=== PATIENT | male | born 1955 | race Caucasian/White ===

== ENCOUNTER → 2017-07-19 | Outpatient (CLI) | payer OTHER ==
[2017-07-19 11:07] LABS: Blood Urea Nitrogen 13 mg/dL (9-20); Non-African American GFR(MDRD) >60 (>60 ml/min/1.73 sqM)
--- NOTE | 2017-07-19 12:52 | CT ---
EXAMINATION TYPE: CT ChestAbdPelvis w con DATE OF EXAM: 07/19/2017 COMPARISON: CT chest October 19, 2015. Whole body bone scan July 13, 2015. HISTORY: Prostate cancer with prostatectomy per patient. CT DLP: 2340 mGycm. Automated Exposure Control for Dose Reduction was Utilized. CONTRAST: CT scan of the thorax, abdomen and pelvis is performed with oral and with IV Contrast, patient inject ed with 100 mL of Omnipaque 300. FINDINGS: LUNGS: The lungs are grossly clear, there is no concerning parenchymal mass or nodule identified. T here is no pleural effusion or pneumothorax seen. The tracheobronchial tree is patent. MEDIASTINUM: There are no greater than 1 cm hilar or mediastinal lymph nodes. No cardiomegaly or pe ricardial effusion is seen. Coronary artery calcification is redemonstrated which is noted marker fo r coronary artery disease. OTHER: Tiny degree of bilateral gynecomastia is redemonstrated. LIVER/GB: Liver remains diffusely low dense consistent with diffuse fatty infiltration. There are few (3-4) scattered subcentimeter hypodense lesions throughout the liver that are too small to further c haracterize but likely benign. Gallbladder is contracted. PANCREAS: No significant abnormality is seen. SPLEEN: There is stable 1.1 cm splenule in splenic hilum on axial image 68. ADRENALS: No significant abnormality is seen. KIDNEYS: There are a few simple appearing cysts scattered throughout both kidneys. Some cortical thin zakia is present bilaterally. There is symmetric cortical medullary uptake and excretion from both kid neys without evidence of hydronephrosis bilaterally. There are 2 slightly prominent collecting system calculi lower pole level left kidney measuring up to 10 mm on long axis. BOWEL: No significant abnormality is seen. GENITAL ORGANS: Prostate gland is surgically absent. Numerous clips in the pelvis are seen at this le dom. No suspicious adenopathy is noted. LYMPH NODES: There are slightly prominent but subcentimeter benign-appearing retroperitoneal lymph no roosevelt including lymph nodes along course of the left iliac chain vessels. Largest measured lymph node o r confluent lobulated lymph node measures 2.4 x 1.1 cm aortocaval region on axial image 83. OSSEOUS STRUCTURES: There is fairly moderate multilevel spurring in the thoracolumbar spine. No suspi cious focal lytic or sclerotic lesions however are evident. OTHER: There is ectatic course to distal abdominal aorta. There is moderate calcified plaque in dista l aorta extending into pelvic branch vessels. IMPRESSION: Nonspecific retroperitoneal lymph nodes as detailed above. Comparison with old outside CT abdomen or pelvis or PET/CT would be beneficial to assess otherwise no convincing evidence of neopla stic recurrence.
--- NOTE | 2017-07-19 14:33 | NM ---
EXAMINATION TYPE: NM bone scan whole body DATE OF EXAM: 07/19/2017 COMPARISON: 07/13/2015 HISTORY: Prostate cancer Delayed whole-body scanning was performed following the injection of 27.8 mCi Tc 99m MDP. Images wer e acquired 3 hours post injection. FINDINGS: Spot images were obtained over the abdomen lumbar spine. Suspicious uptake is not identified. Whole body imaging is performed. Some minimal degenerative changes present at the left knee, the bila teral shoulders and the bilateral feet. Suspicious uptake to suggest metastatic disease is not identi fied. There may be some degenerative type change at the costovertebral junctions of the 11th and 12th left ribs posteriorly. IMPRESSION: 1. Few scattered areas of mild increased uptake suggestive for degenerative-type changes. 2. Suspicious focal uptake to suggest metastatic disease is not identified. 3. Uptake distribution appears stable from 07/13/2015
== END ==
LOC: RADNMMAIN 10:15
PROVIDERS: ATTEND Internal Medicine Hematology & Oncology
DX: C61 Malignant neoplasm of prostate (principal); R59.0 Localized enlarged lymph nodes
CPT/HCPCS: 82565; 84520; 71260; 74177; 36415; 78306; A9503; Q9967

== ENCOUNTER 2017-11-15 13:41 | Day surgery (SDC) | payer OTHER ==
[2017-11-07 09:53] VITALS: BMI 34.3
[~2017-11-15 13:41] MED LIST: HYDROmorphone 0.5 MG/0.5 ML SYRINGE IVP PRN; LACTATED RINGERS 1,000 ML IV SCH; ONDANSETRON 4 MG/2 ML VIAL IVP PRN; ceFAZolin 3 GM in SODIUM CHLORIDE 0.9% 100 ML IVPB ONE
[2017-11-15] MEDS ORDERED: LIDOCAINE 1% 20 ML VIAL (10MG/ML) FOR IV START INTRADERMA ONE (14:12)
[2017-11-15 14:13] LABS: Glucose,Whole Blood 162 mg/dL (75-99)
[2017-11-15 14:24] LABS: Prothrombin Time 10.2 sec (9.0-12.0)
[2017-11-15] MEDS ORDERED: PROPOFOL 10 MG/ML 20 ML VIAL IV ONE (15:13)
[2017-11-15] MEDS ORDERED: LIDOCAINE 1% INJ 10MG/ML (20 ML MDV) ONE (15:13)
[2017-11-15] MEDS ORDERED: HYDROmorphone (PF) 1 MG/ML ONE (15:13)
[2017-11-15] MEDS ORDERED: MIDAZOLAM 2 MG/2 ML VIAL ONE (15:13)
[2017-11-15] MEDS ORDERED: fentaNYL (PF) 50 MCG/ML 2 ML AMP ONE (15:13)
[2017-11-15] MEDS ORDERED: SUCCINYLCHOLINE CHLORIDE VIAL 200 MG/10 ML VIAL IV ONE (15:13)
[2017-11-15] MEDS ORDERED: LACTATED RINGERS 1,000 ML IV ONE (15:17)
[2017-11-15] MEDS ORDERED: ceFAZolin 1,000 MG in SODIUM CHLORIDE 0.9% 1,000 ML IRRIGATION ONE (15:40)
[2017-11-15 16:19] VITALS: TEMP 98
[2017-11-15 16:25] LABS: Glucose,Whole Blood 131 mg/dL (75-99)
[2017-11-15 16:40] VITALS: RESP 18
--- NOTE | 2017-11-15 17:32 | P.OP ---
Date of Procedure: 11/15/17 Preoperative Diagnosis: 1. Diabetes with peripheral neuropathy and history of prior neuropathic forefoot ulceration 2. Rigid left second claw toe deformity with open draining neuropathic ulcer and findings on MRI suggestive of deep infection 3. Flexible left third, fourth, and fifth claw toe deformities Postoperative Diagnosis: Same Procedure(s) Performed: 1. Left second toe amputation 2. Percutaneous flexor tenotomy left third, fourth, and fifth toes Anesthesia: GETA Surgeon: Alfred Deal Estimated Blood Loss (ml): 5 IV fluids (ml): 500 Pathology: none sent Condition: stable Disposition: PACU Indications for Procedure: The patient is a 62-year-old male with a medical history significant for type 2 diabetes and peripheral neuropathy as well as a prior history of smoking. The patient has had problems with his left foot over the past several years. He previously had surgery on the left big toe by a local disability manager. Following this he developed fusiform thickening and occasional open wounds and a hemorrhagic blister. The patient also has developed an open, draining common neuropathic ulcer over the plantar aspect of the tip of the second toe. He also had flexible claw toe deformities of the third, fourth and fifth toe. The patient came to me several months ago to discuss treatment. He had an MRI which showed deep infection of the second toe. We discussed performing amputation versus wound care and shoe modification. Initially the patient wanted to treat nonoperatively due to problems with money and work, but eventually due to the recurrent and ongoing nature of his problems requested surgery. My recommendation was to perform a second toe amputation and percutaneous flexor tenotomies of the third, fourth, and fifth toes. The patient did not want to have any procedure done on the big toe despite having recurrent hemorrhagic blistering. We discussed potential risks and complication of surgery including but not limited to risk of infection, risk of wound necrosis, risk of damage to local blood vessels or nerves, risk of recurrent ulceration, risk of need for more proximal amputation, risk of chronic pain, risk of chronic swelling, risk of the satisfaction of surgery, risk of postoperative medical complications and possibly loss of life or limb. The patient understands the site and rate of of complication due to his multiple medical problems. He provided his verbal and written consent to go forward with surgery. Description of Procedure: The patient was identified in preoperative holding and the correct left foot was marked with my initials. I reviewed the consent form with the patient and his daughter. All their questions were answered. The patient was then brought back to the operating room by anesthesia. A general anesthetic was administered. He was positioned on the OR table and all bony prominences were well-padded. A tourniquet was applied to the proximal aspect of the left leg. The patient's left leg was then prepped and draped in standard sterile fashion. Prior to starting surgery timeout was performed identifying the correct patient, operative extremity, and procedure. The patient's leg was then elevated for 2 minutes and the tourniquet was inflated to 250 mmHg. Began by performing a second toe amputation. The skin marking was made over the base of the second toe with equal dorsal and plantar flaps. Skin incision was made with a scalpel and dissection was carried down carefully to the proximal pharynx. The long flexor and extensor tendons were cut and allowed to retract proximally into the wound. The neurovascular bundles identified, transected, and the vessels were controlled with electrocautery. The base of the proximal phalanx was dissected and then amputated from the MTP joint. The wound was then copiously irrigated. The tourniquet was let down and bleeders were controlled with cautery. The deep tissue was reapproximated using 2-0 Vicryl. The skin was closed using 3-0 nylon horizontal mattress stitches. Attention was then turned to the third, fourth, and fifth toe. Using a sterile 15 blade percutaneous flexor tenotomies were performed on all 3 toes. I was able to straighten the toe. The knife was then used to release contractures at the PIP joint. The wounds were copiously irrigated. Single interrupted 3-0 nylon stitches were placed in all the incisions. I verified that all instrument , sponge, and sharp counts were correct. A sterile dressing consisting of Betadine soaked Adaptic, 4 x 4's, and web roll was applied. The patient had an Quincy wrap applied over his foot. Gave taken down and he was transferred from the OR table to the [facility] and brought to PACU without procedure well.
[2017-11-15 17:40] VITALS: BP 142/92; PULSE 85
== END 2017-11-15 18:06 | disposition home or self-care (01) ==
LOC: OR 13:41
PROVIDERS: ATTEND Orthopaedic Surgery
DX: E11.42 Type 2 diabetes mellitus with diabetic polyneuropathy (principal); E11.621 Type 2 diabetes mellitus with foot ulcer; L97.528 Non-pressure chronic ulcer of other part of left foot with other specified severity; Z79.4 Long term (current) use of insulin; M20.5X2 Other deformities of toe(s) (acquired), left foot; M86.9 Osteomyelitis, unspecified; I48.0 Paroxysmal atrial fibrillation; Z79.01 Long term (current) use of anticoagulants; E78.5 Hyperlipidemia, unspecified; I71.2 Thoracic aortic aneurysm, without rupture; I51.7 Cardiomegaly; I25.10 Atherosclerotic heart disease of native coronary artery without angina pectoris; I10 Essential (primary) hypertension; Z86.73 Personal history of transient ischemic attack (TIA), and cerebral infarction without residual deficits; F17.210 Nicotine dependence, cigarettes, uncomplicated; H91.90 Unspecified hearing loss, unspecified ear; Z85.46 Personal history of malignant neoplasm of prostate; I51.9 Heart disease, unspecified; Z79.891 Long term (current) use of opiate analgesic; Z79.899 Other long term (current) drug therapy
CPT/HCPCS: 85610; 28820; 28011; J2250; J0330; J0690 ×2; J2405; J2001; J3010; J1170; J2704; 88305; 88311

== ENCOUNTER → 2017-12-02 | Outpatient (CLI) | payer OTHER ==
[2017-12-02 13:16] LABS: Basophils % (A) 1 %; Eosinophils # (A) 0.1 k/uL (0-0.7); Eosinophils % (A) 2 %; HCT 48.1 % (39.0-53.0); HGB 15.3 gm/dL (13.0-17.5); Lymphocytes # (A) 1.7 k/uL (1.0-4.8); Lymphocytes % (A) 23 %; MCH 28.9 pg (25.0-35.0); MCHC 31.7 g/dL (31.0-37.0); MCV 91.3 fL (80.0-100.0); Mean Platelet Volume 7.5; Monocytes # (A) 0.6 k/uL (0-1.0); Monocytes % (A) 8 %; Neutrophils # (A) 4.6 k/uL (1.3-7.7); Neutrophils % (A) 64 %; Platelet Count 248 k/uL (150-450); RBC 5.27 m/uL (4.30-5.90); WBC 7.3 k/uL (3.8-10.6)
[2017-12-02 13:27] LABS: Anion Gap 11 mmol/L; Blood Urea Nitrogen 21 mg/dL (9-20); Calcium 9.6 mg/dL (8.4-10.2); Carbon Dioxide 28 mmol/L (22-30); Chloride 99 mmol/L (98-107); Glucose 235 mg/dL (74-99); Magnesium 1.9 mg/dL (1.6-2.3); Potassium 4.6 mmol/L (3.5-5.1); Sodium 138 mmol/L (137-145)
[2017-12-02 13:44] LABS: T4, Free (Free Thyroxine) 0.82 ng/dL (0.78-2.19)
[2017-12-02 21:26] LABS: Hemoglobin A1C 9.1 % (4.0-6.0)
== END | disposition home or self-care (01) ==
LOC: LABWHC1 12:12
PROVIDERS: ATTEND Internal Medicine
DX: E55.9 Vitamin D deficiency, unspecified (principal); E11.9 Type 2 diabetes mellitus without complications; I10 Essential (primary) hypertension
CPT/HCPCS: 36415; 80048; 83036; 83735; 84439; 84443; 85025

== ENCOUNTER → 2019-02-05 | Outpatient (CLI) | payer BC ==
--- NOTE | 2019-02-06 07:08 | US ---
LOWER EXTREMITY VENOUS INSUFFICIENCY SIDE PERFORMED: Bilateral 1) Color flow is present and patency is documented in the following vessels. No DVT or SVT is noted . EIV Common Femoral Vein Deep Femoral Vein Femoral Vein Popliteal Vein Proximal Calf Veins-not seen bilateral due to let swelling Greater Saph Vein Upper Small Saph Vein Patient has bilateral leg swelling, slow flow, technically difficult study. 2) There is venous reflux noted at the following venous levels: Right: none Left: GSV, DFV not seen Venous reflux noted at EIV, CFV, FV upper, and Popliteal Vein lower. IMPRESSION: No ultrasound evidence for acute deep or superficial venous thrombosis bilateral lower ex tremities. Left-sided venous reflux noted as detailed above.
--- NOTE | 2019-02-11 09:22 | P.ARTDOP ---
Arterial Doppler LOWER EXTREMITY ARTERIAL DOPPLER: DATE OF SERVICE: 02/05/2019 Reason for study: Right leg pain. Doppler waveforms: Multiphasic bilaterally throughout. Pulse volume recording: Normal configuration. Pressure gradients: None. Ankle-brachial indices: Greater than 1 on the right and 0.87 on the left Toe pressures: Not recorded Impression: Normal study on the right. Possible mild right SFA disease.
== END | disposition home or self-care (01) ==
LOC: RADUSWWP 13:32
PROVIDERS: ATTEND Podiatrist
DX: I87.2 Venous insufficiency (chronic) (peripheral) (principal)
CPT/HCPCS: 93923; 93970

== ENCOUNTER → 2019-02-09 | Outpatient (CLI) | payer BC ==
--- NOTE | 2019-02-10 12:48 | NM ---
EXAMINATION TYPE: NM WBC limited DATE OF EXAM: 02/10/2019 COMPARISON: Nuclear medicine bone scan dated 07/19/2017, right toe radiographs dated 01/30/2019 and veno us ultrasound dated 02/05/2018. HISTORY: Concern for osteomyelitis TECHNIQUE: Following administration of 15.2 mCi Tc99m Ceretec. Images obtained 4 hour(s) and 24 jessica r(s) post injection. FINDINGS: Normal physiological tracer activity is noted in the liver and spleen and in the bone marrow of the a xial and appendicular skeleton. There is focal accumulation of radiotracer within the right second di stal phalanx on delayed images. This is compatible with osteomyelitis. No additional abnormal foci of radiotracer uptake are seen. IMPRESSION: Findings confirmatory of osteomyelitis within the second distal phalanx of the right foot.
== END | disposition home or self-care (01) ==
LOC: RADNMMAIN 06:58
PROVIDERS: ATTEND Podiatrist
DX: M86.8X7 Other osteomyelitis, ankle and foot (principal)
CPT/HCPCS: 78805; A9569

== ENCOUNTER → 2019-04-02 | Outpatient (CLI) | payer BC ==
--- NOTE | 2019-04-03 07:30 | XR ---
Right foot HISTORY: Diabetes mellitus with foot ulcer 3 views of the right foot on 4 images Correlation to right toes 01/30/2019 Soft tissue swelling at the second digit distally is again noted. There is been interval bone erosion . Soft tissue calcifications are present. Digits are flexed. Vascular calcifications noted. No eviden t periostitis. There is a plantar calcaneus spur. IMPRESSION: Findings compatible with osteomyelitis.
== END | disposition home or self-care (01) ==
LOC: RADXRMAIN 16:15
PROVIDERS: ATTEND Podiatrist
DX: M86.8X7 Other osteomyelitis, ankle and foot (principal); E08.621 Diabetes mellitus due to underlying condition with foot ulcer

== ENCOUNTER 2019-05-15 10:09 | Inpatient (IN) | payer BC ==
--- NOTE | 2019-05-15 10:51 | ED ---
General Adult HPI <Dennis Alvarado - Last Filed: 05/15/19 12:18> - General Source: patient, RN notes reviewed, old records reviewed Mode of arrival: wheelchair Limitations: no limitations <DailyKaren - Last Filed: 05/15/19 12:35> - General Chief complaint: Skin/Abscess/Foreign Body Stated complaint: toe infection Time Seen by Provider: 05/15/19 10:19 - History of Present Illness Initial comments: Patient is a 63-year-old male, known history of diabetes, complaints of right second toe infection. He reports he's been seeing Dr. Medina since December for concern for infection over the right toe. Patient states over the past 24 mL had increased redness and swelling over the second toe. He saw Dr. Medina today and was told that he needed to come in for further evaluation. Patient states that he has been on oral Keflex for the past few weeks. Patient states that he has history of peripheral neuropathy. Patient states that Dr. Medina inserted appropriately did obtain a wound culture today. Patient states that he's had his left second toe removed for a similar diabetic wound. (Karen Ambrosio) - Related Data Home Medications Medication Instructions Recorded Confirmed Gabapentin [Neurontin] 300 mg PO TID 11/07/17 05/15/19 Losartan Potassium [Cozaar] 100 mg PO DAILY 11/07/17 05/15/19 Metoprolol Tartrate [Lopressor] 50 mg PO BID 11/07/17 05/15/19 Warfarin [Coumadin] 2.5 mg PO SUWETHSA 11/07/17 05/15/19 amLODIPine [Norvasc] 10 mg PO HS 11/07/17 05/15/19 hydrALAZINE HCL [Apresoline] 50 mg PO TID 11/07/17 05/15/19 Atorvastatin [Lipitor] 20 mg PO HS 01/16/19 05/15/19 Citalopram Hydrobromide [CeleXA] 20 mg PO DAILY 01/16/19 05/15/19 Furosemide [Lasix] 20 mg PO DAILY@1500 01/16/19 05/15/19 Furosemide [Lasix] 40 mg PO DAILY 01/16/19 05/15/19 Ibuprofen [Motrin] 600 mg PO PC-TID 01/16/19 05/15/19 oxyCODONE HCL [oxyCODONE HCL (IR)] 15 mg PO Q6H 01/16/19 05/15/19 Cholecalciferol [Vitamin D3 (25 5,000 unit PO DAILY 05/15/19 05/15/19 Mcg = 1000 Iu)] INSULIN ASPART (NovoLOG) [NovoLOG 30 unit SQ AC-BID 05/15/19 05/15/19 (formulary)] Insulin Glargine,Hum.rec.anlog 50 mg PO HS 05/15/19 05/15/19 [Basaglar Kwikpen U-100] Pantoprazole [Protonix] 40 mg PO DAILY 05/15/19 05/15/19 Vitamin E 1,000 unit PO DAILY 05/15/19 05/15/19 Warfarin [Coumadin] 5 mg PO MOTUFR 05/15/19 05/15/19 diphenhydrAMINE [Benadryl] 50 mg PO HS PRN 05/15/19 05/15/19 Previous Rx's Medication Instructions Recorded Cephalexin [Keflex] 500 mg PO Q8HR #90 cap 02/16/19 Allergies Allergy/AdvReac Type Severity Reaction Status Date / Time No Known Allergies Allergy Verified 05/15/19 10:13 Review of Systems ROS Other: All systems not noted in ROS Statement are negative. <Dennis Alvarado - Last Filed: 05/15/19 12:18> ROS Other: All systems not noted in ROS Statement are negative. <Karen Ambrosio - Last Filed: 05/15/19 12:35> ROS Statement: Those systems with pertinent positive or pertinent negative responses have been documented in the HPI. Past Medical History Past Medical History: Cancer, CVA/TIA, Diabetes Mellitus, GERD/Reflux, Hypertension, Liver Disease, Myocardial Infarction (CT), Osteoarthritis (OA) Additional Past Medical History / Comment(s): stroke 2 1/2 years-no residual effects, neuropathy both feet, hx. prostate cancer 2003, hx. hepatitis B 2002? Last Myocardial Infarction Date:: unknown History of Any Multi-Drug Resistant Organisms: None Reported Past Surgical History: Heart Catheterization, Orthopedic Surgery, Prostate Surgery Additional Past Surgical History / Comment(s): prostatectomy, surg. on 1st-2nd toe left foot, surg. for kidney stones, right hand surg. left foot 2nd toe amputation 10/2017 Past Anesthesia/Blood Transfusion Reactions: No Reported Reaction Past Psychological History: No Psychological Hx Reported, Depression Smoking Status: Current every day smoker Past Alcohol Use History: Occasional Past Drug Use History: None Reported - Past Family History Mother Family Medical History: Coronary Artery Disease (CAD) Father Family Medical History: CVA/TIA <Karen Ambrosio - Last Filed: 05/15/19 12:35> General Exam Limitations: no limitations General appearance: alert, in no apparent distress Head exam: Present: atraumatic, normocephalic, normal inspection Eye exam: Present: normal appearance ENT exam: Present: normal exam, mucous membranes moist Neck exam: Present: normal inspection. Absent: tenderness, meningismus, lymphadenopathy Respiratory exam: Present: normal lung sounds bilaterally Cardiovascular Exam: Present: regular rate, normal rhythm, normal heart sounds. Absent: systolic murmur, diastolic murmur, rubs, gallop, clicks GI/Abdominal exam: Present: soft, normal bowel sounds. Absent: distended, tenderness, guarding, rebound, rigid Extremities exam: Present: normal inspection, full ROM, normal capillary refill. Absent: tenderness, pedal edema, joint swelling, calf tenderness Right Ankle exam: Absent: normal inspection, full ROM Foot/Toe exam: Present: full ROM. Absent: normal inspection (Patient has erythematous right second toe, area of drainage from the distal toe where it was packed.) Neurovascular tendon exam: Present: no vascular compromise Gait: observed and normal Back exam: Present: normal inspection Neurological exam: Present: alert, oriented X3, CN II-XII intact Psychiatric exam: Present: normal affect, normal mood Skin exam: Present: warm, dry, intact, normal color. Absent: rash <Karen Ambrosio - Last Filed: 05/15/19 12:35> - General Exam Comments Initial Comments: 63-year-old male. Alert and oriented 3. No significant distress. (Karen Ambrosio) Course Vital Signs 05/15/19 10:13 Temperature 98.4 F Pulse Rate 63 Respiratory 18 Rate Blood Pressure 147/97 O2 Sat by Pulse 97 Oximetry Medical Decision Making - Lab Data Result diagrams: 05/15/19 10:55 05/15/19 10:55 <Dennis Alvarado - Last Filed: 05/15/19 12:18> - Lab Data Result diagrams: 05/15/19 10:55 05/15/19 10:55 - Radiology Data Radiology results: report reviewed <Karen Ambrosio - Last Filed: 05/15/19 12:35> - Medical Decision Making Medical decision making; this is a 63-year-old male here with osteomyelitis of his right second toe. He was sent in by marketing technology specialist Dr. Medina. The patient be admitted to Dr. cherry with consultation from vascular surgeon Dr. Ling and infectious disease doctor Karlos. (Dennis Alvarado) Patient is a 63-year-old male with a history of diabetes, status of the right second toe infection. He has evidence of erythema extending up the second toe. Patient has area of drainage noted. He was started on IV fluids and antibiotics. Blood work was reviewed and are also unremarkable. X-ray shows concern for Jenny myelitis. He is oriented oral Keflex. I discussed treatment at this time with IV antibiotic. He was sent in by Dr. Medina. Dis cusses Dr. Alvarado who discussed the case with patient's PCP. Patient was admitted with consult to Dr. Ling and Dr. Everett. He was started on Zosyn and vancomycin. (Karen Ambrosio) - Lab Data Lab Results 05/15/19 05/15/19 05/15/19 Range/Units 10:55 10:55 10:55 WBC 9.0 (3.8-10.6) k/uL RBC 5.02 (4.30-5.90) m/uL Hgb 15.1 (13.0-17.5) gm/dL Hct 44.5 (39.0-53.0) % MCV 88.6 (80.0-100.0) fL MCH 30.0 (25.0-35.0) pg MCHC 33.9 (31.0-37.0) g/dL RDW 17.1 H (11.5-15.5) % Plt Count 192 (150-450) k/uL Neutrophils % 63 % Lymphocytes % 25 % Monocytes % 7 % Eosinophils % 3 % Basophils % 1 % Neutrophils # 5.7 (1.3-7.7) k/uL Lymphocytes # 2.2 (1.0-4.8) k/uL Monocytes # 0.6 (0-1.0) k/uL Eosinophils # 0.3 (0-0.7) k/uL Basophils # 0.1 (0-0.2) k/uL Anisocytosis Slight Sodium 139 (137-145) mmol/L Potassium 4.1 (3.5-5.1) mmol/L Chloride 103 (98-107) mmol/L Carbon Dioxide 28 (22-30) mmol/L Anion Gap 8 mmol/L BUN 20 (9-20) mg/dL Creatinine 0.79 (0.66-1.25) mg/dL Est GFR (CKD-EPI)AfAm >90 (>60 ml/min/1.73 sqM) Est GFR (CKD-EPI)NonAf >90 (>60 ml/min/1.73 sqM) Glucose 215 H (74-99) mg/dL Plasma Lactic Acid Kaushik 1.4 (0.7-2.0) mmol/L Calcium 9.3 (8.4-10.2) mg/dL Total Bilirubin 0.5 (0.2-1.3) mg/dL AST 14 L (17-59) U/L ALT 18 L (21-72) U/L Alkaline Phosphatase 81 (38-126) U/L C-Reactive Protein 12.2 H (<10.0) mg/L Total Protein 6.8 (6.3-8.2) g/dL Albumin 4.2 (3.5-5.0) g/dL - Radiology Data Soft tissue swelling of the second toe redone strata truncated eroded distal phalanx. There is focal area of ostial lysis over the dorsal tip of the road distal phalanx suspicious for acute osteomyelitis. (Karen Ambrosio) Disposition <Dennis Alvarado - Last Filed: 05/15/19 12:18> Is patient prescribed a controlled substance at d/c from ED?: No Time of Disposition: 12:35 <Karen Ambrosio - Last Filed: 05/15/19 12:35> Clinical Impression: Diabetic ulcer of right foot associated with diabetes mellitus due to underlying condition, with necrosis of bone, Osteomyelitis, Failure of outpatient treatment Disposition: ADMITTED IP TO THIS HOSP Condition: Stable Referrals: Grayson Cherry MD [Primary Care Provider] - 1-2 days
[2019-05-15 11:14] LABS: Anisocytosis Slight; Basophils # (A) 0.1 k/uL (0-0.2); Basophils % (A) 1 %; Eosinophils # (A) 0.3 k/uL (0-0.7); Eosinophils % (A) 3 %; HCT 44.5 % (39.0-53.0); HGB 15.1 gm/dL (13.0-17.5); Lymphocytes # (A) 2.2 k/uL (1.0-4.8); Lymphocytes % (A) 25 %; MCHC 33.9 g/dL (31.0-37.0); MCV 88.6 fL (80.0-100.0); Monocytes # (A) 0.6 k/uL (0-1.0); Monocytes % (A) 7 %; Neutrophils # (A) 5.7 k/uL (1.3-7.7); Neutrophils % (A) 63 %; Platelet Count 192 k/uL (150-450); RBC 5.02 m/uL (4.30-5.90); RDW 17.1 % (11.5-15.5)
[2019-05-15 11:25] LABS: ALT 18 U/L (21-72); AST 14 U/L (17-59); African American GFR (CKD) >90 (>60 ml/min/1.73 sqM); Albumin 4.2 g/dL (3.5-5.0); Alkaline Phosphatase 81 U/L (38-126); Anion Gap 8 mmol/L; Blood Urea Nitrogen 20 mg/dL (9-20); C Reactive Protein 12.2 mg/L (<10.0); Calcium 9.3 mg/dL (8.4-10.2); Carbon Dioxide 28 mmol/L (22-30); Chloride 103 mmol/L (98-107); Glucose 215 mg/dL (74-99); Potassium 4.1 mmol/L (3.5-5.1); Sodium 139 mmol/L (137-145); Total Bilirubin 0.5 mg/dL (0.2-1.3); Total Protein 6.8 g/dL (6.3-8.2)
--- NOTE | 2019-05-15 11:27 | XR ---
EXAMINATION TYPE: XR foot complete RT DATE OF EXAM: 05/15/2019 COMPARISON: 04/02/2019 HISTORY: 63-year-old male infected second digit, pain TECHNIQUE: 3 views FINDINGS: Soft tissue swelling of the second toe with redemonstrated truncation of the distal phalanx. There is a focal area of scooped out osteolysis along the dorsal aspect of the eroded distal phalanx. Onychom ycosis noted. Moderate-sized plantar calcaneal spur. Vascular calcification suggests underlying diabe jose a and her chronic kidney disease. IMPRESSION: Soft tissue swelling of the second toe with redemonstrated truncated/eroded distal phalanx. There is a focal area of osteolysis along the dorsal tip of the eroded distal phalanx suspicious for acute ost eomyelitis.
[2019-05-15] MEDS ORDERED: PIPERACILLIN-TAZOBACTAM 3.375 GM in SODIUM CHLORIDE 0.9% 100 ML IVPB STA (11:40)
[2019-05-15] MEDS ORDERED: VANCOMYCIN IV PER PHARMACY 1 EACH MISC MISCELLANE PRN ×2 (11:40→15:24)
[2019-05-15] MEDS ORDERED: VANCOMYCIN 2,250 MG in SODIUM CHLORIDE 0.9% 500 ML 500 ML IVPB STA (11:54)
[2019-05-15] MEDS ORDERED: SODIUM CHLORIDE 0.9% 1,000 ML IV ONE (12:30)
[2019-05-15] MEDS ORDERED: HYDROcodone/APAP 10-325MG 1 EACH TAB PO ONE (12:31)
[2019-05-15] MEDS ORDERED: ONDANSETRON 4 MG/2 ML VIAL IVP PRN (12:35)
[2019-05-15] MEDS ORDERED: diphenhydrAMINE 25 MG CAP PO PRN (12:35)
[2019-05-15] MEDS ORDERED: LORazepam 2 MG/ML INJ IV PRN (12:35)
[2019-05-15] MEDS ORDERED: IBUPROFEN 400 MG TAB PO PRN (12:35)
[2019-05-15] MEDS ORDERED: NALOXONE 0.4 MG/ML 1 ML VIAL IV PRN (12:35)
[2019-05-15] MEDS ORDERED: ACETAMINOPHEN TAB 325 MG TAB PO PRN (12:35)
[2019-05-15 13:46] LABS: INR 1.9 (<1.2); Partial Thromboplastin Time 34.7 sec (22.0-30.0); Prothrombin Time 18.4 sec (9.0-12.0)
[2019-05-15] MEDS: SODIUM CHLORIDE 0.9% 1,000 ML IV SCH ×2 (14:22→23:44)
[2019-05-15] MEDS: GABAPENTIN 300 MG CAP PO SCH ×3 (14:32→20:45)
[2019-05-15] MEDS: FUROSEMIDE 20 MG TAB PO SCH (14:32)
[2019-05-15] MEDS ORDERED: VANCOMYCIN TROUGH DUE 1 EACH MISC MISCELLANE ONE (15:24)
--- NOTE | 2019-05-15 17:13 | HP ---
HISTORY AND PHYSICAL DATE OF SERVICE: 05/15/2019. NEW DATA: FULL CODE. Height is 6 feet 3 inches, weight 131.542 kg, BSA 2.57 m2, BMI 36.2 kg/m2. ALLERGIES: UNKNOWN. CHIEF COMPLAINT: Diabetic second toe of the right foot ulcer not healing. HISTORY OF PRESENT ILLNESS: This is a patient with underlying history of second toe of the right foot that has been debrided by Dr. Medina, offset press assistant, and today he saw him in his office across from the hospital. He thought that his right second toe infection was at high risk of osteomyelitis and needed amputation. Subsequently the patient was sent to the emergency room at [facility]. Dr. Medina did insert a probe and he obtained a wound culture, but it appeared by the x-ray in the emergency room that there is high risk of osteomyelitis. At this time the patient was seen by Karen Ambrosio, nurse practitioner, and subsequently to discuss with Dr. Dennis Alvarado, the ER physician, and he called me to admit the patient with several consultations. The first one is Dr. Jr Everett, who did see him in the past. The second consultation was with Dr. Zohaib Ling, vascular surgeon, with the possibility of amputation of the second toe. The third consultation is Dr. Medina, the offset press assistant who saw him today. However, when we called Dr. Medina, he declined to see the patient because he is going out of town for 2 weeks for vacation and surgery. At this time we did continue consultations with the above physicians for help with the underlying diagnosis and treatment. PAST MEDICAL HISTORY: The patient has a very significant history of diabetic foot ulcers, and he had amputation of the toes on the left foot; this time it is the right foot. The patient has a history of previous stroke, and he recovered. He was at that time seen at [facility], which subsequently flew him to , and he was treated there. He has also a history of myocardial infarction in the past and history of hypertension with hypertensive heart disease. He has a history of atrial fibrillation and he has been on warfarin and was monitored. However, his lost pro time and INR as he was admitted to the hospital was INR of 1.9. We stopped the Coumadin and started him on heparin with the future plan of amputation. Also the patient was started on vancomycin in the emergency room until he was seen by Infectious Disease. The patient has history of hyperlipidemia and history of insulin-dependent diabetes mellitus as well. He has chronic pain and he has received from Dr. Shalom Cason oxycodone 15 mg 4 times a day as well. He has history of major depressive disorder and he has a history of sleep deprivation and a history of venous insufficiency and stasis dermatitis of the lower extremities. He has also a body mass index that is above normal with mild obesity. He had chronic atrial fibrillation which has been anticoagulated. He has as well diabetic neuropathy in both lower extremities with decreased sensation. The patient was treated prior to the admission to the hospital with Keflex 500 mg p.o. q.[address] Medina. However, with the underlying osteomyelitis patient was started in the ER on vancomycin. In the emergency room, disposition was diabetic ulcer of the right foot, second toe, associated with diabetes mellitus due to underlying condition with necrosis of the bone with osteomyelitis with failure of outpatient treatment. FAMILY/SOCIAL HISTORY: He is and he has one daughter. He was drinking diet Coke one liter per day. However, that has been discontinued. He also used to smoke one pack of cigarettes a day. He is still smoking but cutting down after several discussions. He rarely drinks alcohol. Children: He has 2 boys and 2 girls. The boys are 23 and 25 and the girls are 30 and 27. He used marijuana in the past, but that was ended in the s; no for further use. The patient occasionally lives with his daughter and he goes back and forth. Currently he is on his own and he is working. MEDICATIONS: 1. Furosemide 20 mg tablet daily at 3 p.m. 2. Keflex 500 mg q.8 hours. 3. Losartan 100 mg tablet in the morning for hypertension. 4. Hydralazine 50 mg 3 times a day for hypertension. 5. Lopressor 50 mg twice a day. 6. He was on amlodipine 10 mg at bedtime. 7. He is using ibuprofen 600 mg 1 tablet with food 3 times a day. 8. Protonix 40 mg once a day. 9. Citalopram 20 mg each morning. 10.Lipitor for hyperlipidemia 20 mg at bedtime. 11.He was on the Coumadin. He was alternating 5 mg and 2.5 mg. However, we held the Coumadin because of the impending surgery and placed him on heparin. 12.Lasix 20 mg at 3 p.m., as mentioned, but also he takes it in the morning at 40 mg. 13.Neurontin 300 mg capsule t.i.d. for neuropathy. 14.As mentioned, he is on pain medication per Dr. Cason from the pain clinic: 15 mg of oxycodone one tablet 4 times a day. 15.NovoLog. He supposedly was taking 30 units twice a day. However, because of being in the hospital, they are monitoring him and trying to avoid hypoglycemia. We are going to start with the scale POC insulin, and that is being checked before meals and at bedtime and covered with insulin. 16.Long-acting Basaglar KwikPen 50 units subcutaneously at bedtime. That has been decreased to 25 mg of Lantus or Levemir, as this medication is not available. The Basaglar is not available in the hospital. 17.Vitamin D3 5000. 18.Vitamin E 1000. 19.Accu-Chek once daily. REVIEW OF SYSTEMS: The patient has a previous history of myocardial infarction. On February 10, 2019, the patient was ordered by Dr. Medina nuclear medicine with WBCs and that at that time was confirmatory of osteomyelitis within the second distal phalanx of the right toe. However, after he tried to salvage that toe, with failing of the treatment and persistent infection, we are going to get an MRI. Meanwhile, Dr. Ling, vascular surgeon, may do possible amputation if that toe cannot be salvaged. His last echocardiogram was done on July 03, 2016. It indicated left ventricular hypertrophy with ejection fraction of 50% and an enlarged left atrium and left ventricular hypertrophy with dilated left atrium with left ventricular systolic function preserved at 60%. That was done at [facility]. He had also a previous evaluation by Dr. Ling, the vascular surgeon, in his office. He had a CT scan of the chest on October 19, 2015, with borderline ascending aortic questionable borderline aneurysm at 3.9 cm. The patient has a history of prostate cancer and underwent radical prostatectomy. Subsequently we found recurrence and that was treated by injection by Dr. Winkler. He did well; however, the CT scan done at that time in [facility] on June 15, 2015, stated that he was status post prostatectomy with retroperitoneal and left external iliac chain lymphadenopathy and upper left external iliac chain of tucker mass measuring about 4.1 cm, which is a finding suggestive of metastatic disease. He had 9 mm of sclerotic focus in the right iliac bone, sub-centimeter hypodensity in the right liver lobe. With this finding, the patient was seen by Oncology/Hematology, Dr. Winkler, and patient was treated with leuprolide injection and clarified that who has been following at that time. He has no further enlargement. The patient also had an MRI of the brain done at [facility] on May 04, 2015, with the impression of acute infarction in the right frontoparietal region with a small hemorrhagic transformation and evidence of . No significant mass effect or midline shift. Chronic white matter small-vessel disease. NEUROPSYCHIATRY: He has stable mood. No evidence of residual stroke. He is ambulatory, conscious, alert, oriented x3. He is able to work as well so far without any interruption. RESPIRATORY: No shortness of breath except with exertion. CARDIOVASCULAR: No palpitation or chest pain, but he has chronic atrial fibrillation with dilated left atrium. GI: No hematemesis or melena or hematochezia. No abdominal pain. : No evidence of infection; however, he gets that intermittently, and with the current problem we will do a urinalysis with culture, to be referred if presence of infection. EXTREMITIES: He has very obvious ulceration of the second toe with pain. However, he had neuropathy and bleeding, and Dr. Medina osteomyelitis. He felt that way. He has still pulses in the lower extremities and he has underlying stasis dermatitis but no edema on the examination. PHYSICAL EXAMINATION: VITAL SIGNS AT THE TIME OF ADMISSION TO THE EMERGENCY ROOM: Temperature 98.4 Fahrenheit oral, pulse 63, irregular, respiratory rate 18, blood pressure 147/97 with a mean arterial pressure of 113. Pulse ox on room air 97%. At the time of the exam, his vital signs are stable with temperature 98.0 Fahrenheit oral, pulse 68, respiratory rate 16, blood pressure 130/88 and a mean arterial pressure of 102, pulse ox 97%. HEAD: Normocephalic, atraumatic. Pupils equal, reactive. Conjunctivae pink. Sclerae nonicteric. Extraocular muscle movements intact. Normal hearing bilaterally. Nose with no discharge or rhinitis. Oropharynx negative. Uvula midline. NECK: Supple. No JVD. No thyromegaly. No lymphadenopathy. Trachea midline. No bruits. CHEST: Clear to auscultation and percussion. No wheezes. No rhonchi. HEART: PMI in the fifth intercostal space outside midclavicular line with normal S1, S2. No gallop. ABDOMEN: Soft, obese. Positive bowel sounds. No tenderness on the 4 quadrants. No suprapubic tenderness. EXTREMITIES: No edema. Right foot second toe is ulcerated and still painful despite the neuropathy that he has. Probed; it has some bleeding from probing of the second toe with the suspicion of osteomyelitis. The left lower extremity is normal with pulses. He has previous history of amputation of toe of the left foot. NEUROLOGICAL EXAMINATION: Grossly intact. No lateralizing sign. He has recovered from his previous stroke and he is ambulatory as well. PSYCHIATRY: He has depressive disorder and his mood is stable. He is on Celexa. ASSESSMENT: 1. Right foot second toe ulceration with probing that reach to the end of the toe. Probably he has osteomyelitis, which was proved in January, but Dr. Medina was planning for medical therapy and debridement. At this time there is no solution. We will do the MRI of that right foot toe and consultation with Dr. Ling for amputation. 2. Diabetes mellitus, type 2, with diabetic foot. 3. History of hypertension with hypertensive heart disease. 4. History of cerebrovascular accident that is currently cleared. 5. History of myocardial infarction in the past, currently recovered, with the heart with good function. 6. History of prostate cancer with radical prostatectomy followed by recurrence with metastasis and subsequently treated by Hematology/Oncology. He also had treatment in [facility] and then subsequently was followed here by Dr. Winkler. Currently the patient is insulin-dependent. His blood pressure is controlled. We will be planning for consultation with Dr. Everett and continuing the vancomycin as well as checking the urinalysis and continuation of the antibiotic. Will see the consulting physician, planning for amputation of the second toe for definitely osteomyelitis. MMODL / IJN: [id number] /
[2019-05-15] MEDS ORDERED: INSULIN ASPART (NovoLOG) 100 UNIT/ML VIAL SQ SCH (17:30)
[2019-05-15] MEDS: hydrALAZINE HCL 50 MG TAB PO SCH ×2 (17:37→20:51)
[2019-05-15] MEDS: MORPHINE SULFATE 4 MG/ML SYRINGE IV PRN ×2 (17:37→23:40)
[2019-05-15] MEDS: HEPARIN SODIUM,PORCINE 5,000 UNIT/ML 1 ML VIAL SQ SCH ×2 (17:38→23:47)
[2019-05-15] MEDS: INSULIN ASPART (NovoLOG) 100 UNIT/ML VIAL SQ SCH ×2 (17:48→20:52)
[2019-05-15 17:57] LABS: Appearance,Urine Clear (Clear); Bilirubin,Urine Negative (Negative); Blood,Urine Negative (Negative); Color,Urine Light Yellow; Glucose,Urine (UA) 4+ (Negative); Ketones,Urine Negative (Negative); Leukocyte Esterase,Urine Negative (Negative); Nitrite,Urine Negative (Negative); PH, Urine 5.5 (5.0-8.0); Protein,Urine Negative (Negative); Specific Gravity,Urine 1.025 (1.001-1.035); Urobilinogen,Urine <2.0 mg/dL (<2.0)
[2019-05-15 18:00] LABS: Glucose,Whole Blood 264 mg/dL (75-99)
[2019-05-15 20:39] LABS: Glucose,Whole Blood 303 mg/dL (75-99)
[2019-05-15] MEDS: ATORVASTATIN 20 MG TAB PO SCH (20:44)
[2019-05-15] MEDS: amLODIPine 10 MG TAB PO SCH (20:44)
[2019-05-15] MEDS ORDERED: INSULIN DETEMIR (LEVEMIR) 100 UNIT/ML SYR SQ SCH (21:00)
--- NOTE | 2019-05-15 22:39 | MR ---
EXAMINATION TYPE: MR foot RT wo/w con DATE OF EXAM: 05/15/2019 COMPARISON: HISTORY: Rt foot/second toe osteomyelitis CONTRAST: Standard multiplanar, multisequence MRI departmental protocol utilizing 13 mL intravenous G adavist gadolinium contrast. FINDINGS: Unfortunately, the patient's motion artifact challenges visualization on all sequences. BONES AND JOINTS: There is T2 hyperintensity and gadolinium enhancement of the distal phalanx second toe, consistent with osteomyelitis. The DIP articulation has normal appearance. The middle phalanx sh ows subtle T2 hyperintensity, but no T1 hypointensity or definite gadolinium enhancement. Overall imp ression is negative for osteomyelitis involving the middle phalanx of second toe. Rather, the subtle T2 hyperintensity is likely to be reactive marrow edema. The proximal phalanx of the second toe has n ormal appearance on all sequences. Remainder of the skeletal structures also have normal morphology and signal characteristics. SOFT TISSUES: Within the soft tissues plantar to the distal phalanx second toe there is T2 hyperinten sity and gadolinium enhancement, but no focal fluid collection to suggest soft tissue abscess. In addition, there is a 2.5 cm mean diameter zone of T2 hyperintensity gadolinium enhancement in the deep soft tissues immediately plantar to the proximal shaft of the second metatarsal, again without focal fluid collection to suggest soft tissue abscess. IMPRESSION: 1) Second toe osteomyelitis involving the distal phalanx, as discussed. 2) Negative for soft tissue abscess.
--- NOTE | 2019-05-15 22:55 | WWPN ---
[facility] - PROGRESS NOTE This is a 63-year-old pleasant male with history of diabetes. The patient has been admitted with infection and osteomyelitis of the right foot second toe. The patient has had this infection going on since November. He is under the care of Dr. Medina. The patient stated that a few of the bones from the distal phalanx have been removed. The patient is on IV antibiotic vancomycin. The right foot second toe has a hammertoe and there is an open wound with redness noted on the plantar and dorsal aspect of the second toe. Discussed in detail with the patient. We will proceed with right foot second toe. The patient had his left foot second toe removed in the past. PAST MEDICAL HISTORY: 1. History of diabetes. 2. Hypertension. 3. Myocardial infarction in the past. 4. Osteoarthritis. PHYSICAL EXAMINATION: NECK: Supple. Trachea central. CHEST: Clear to auscultation. ABDOMEN: Soft. Femorals are palpable. Posterior tibial is palpable. Right foot second toe has a deformity with open wound on the distal phalanx with marked redness noted on the dorsal and plantar aspect of the foot. Options were discussed. Since this patient has had this problem since November, we discussed amputating the second toe. The patient agreed. PLAN: Right foot second toe amputation. Risks and complications of bleeding, infection and nonhealing have been discussed. We will continue with IV antibiotic. MMODL / IJN: [id number] /
[2019-05-15] MEDS ORDERED: VANCOMYCIN 2,250 MG in SODIUM CHLORIDE 0.9% 500 ML 500 ML IVPB SCH (23:00)
--- NOTE | 2019-05-15 23:07 | P.CONS ---
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 He had been evaluated in the wound healing Center and the [place] and there was evidence of an underlying bony infection and he was offered intravenous antibiotic therapy. He however did not want to proceed with that type of therapy, he had been through this before in the past. He did except some oral antibiotic therapy. However despite this the toe has been having ongoing worsening and has discussed the last time he was seen in wound healing center he would likely move onto an amputation to the toe with the ongoing active osteomyelitis. He was seen in the outpatient clinic and there was worsening there was no probing rate to the bone and he's now been brought into hospital for further intervention. His is seen by vascular surgery and I believe there are plans for the toe amputation in the morning. MRI is be en performed to evaluate any further extension of the infection beyond the toe into the foot which could then change the surgical plan. Fortunately the patient is not feeling very ill at this point in time but is aware of the significant difficulty, is admitted to further intervention with overall goal of foot salvage. Review of Systems HEENT:Denies headache or acute visual change. Denies sinus or mouth discomforts. Denies neck stiffness or pain. Denies significant oral cavity pain. Denies difficulty on swallowing. Lungs: Denies significant shortness of breath, cough, sputum production, or hemoptysis. Cardiovascular: Denies significant shortness of breath, chest pain, chest wall pain, orthopnea, dyspnea on exertion, syncope Gastrointestinal:Denies nausea, vomiting, diarrhea, constipation, hematemesis, melena, hematochezia. No no significant change of bowel habit noticed. Musculoskeletal: denies significant myalgias or arthralgias. Swelling to the right foot second toe of the foot is intact Skin: As per the HPI ulceration to the right foot second toe probing to bone Neuro: Denies headache or visual change. Denies any new onset weakness or d ifficulty with ambulation. Denies falls or seizures. Psychiatric:Denies anxiety or depression. Endocrine: Denies significant fatigue, denies significant weight loss or weight gain. Past Medical History Past Medical History: Cancer, CVA/TIA, Diabetes Mellitus, GERD/Reflux, Hypertension, Liver Disease, Myocardial Infarction (CO), Osteoarthritis (OA) Additional Past Medical History / Comment(s): stroke 2 1/2 years-no residual e ffects, neuropathy both feet, hx. prostate cancer 2003, hx. hepatitis B 2002? Last Myocardial Infarction Date:: 2008 History of Any Multi-Drug Resistant Organisms: None Reported Past Surgical History: Heart Catheterization, Orthopedic Surgery, Prostate Surgery Additional Past Surgical History / Comment(s): prostatectomy, surg. on 1st-2nd toe left foot, surg. for kidney stones, right hand surg. left foot 2nd toe amputation 10/2017 Past Anesthesia/Blood Transfusion Reactions: No Reported Reaction Past Psychological History: No Psychological Hx Reported, Depression Smoking Status: Current every day smoker Past Alcohol Use History: Occasional Additional Past Alcohol Use History / Comment(s): has smoked on and off over the years. currently smoking a pack a day since Lesli time Past Drug Use History: None Reported - Past Family History Mother Family Medical History: Coronary Artery Disease (CAD) Father Family Medical History: CVA/TIA Medications and Allergies Home Medications and Allergies Comment(s): Current Medications Acetaminophen (Tylenol Tab) 650 mg PO Q6HR PRN PRN Reason: Mild Pain or Fever > 100.5 Amlodipine Besylate (Norvasc) 10 mg PO HS [facility] Last Admin: 05/15/19 20:44 Dose: 10 mg Documented by: Atorvastatin Calcium (Lipitor) 20 mg PO HS [facility] Last Admin: 05/15/19 20:44 Dose: 20 mg Documented by: Cholecalciferol (Vitamin D3 (25 Mcg = 1000 Iu)) 5,000 unit PO DAILY [facility] Citalopram Hydrobromide (Celexa) 20 mg PO DAILY [facility] Diphenhydramine HCl (Benadryl) 50 mg PO HS PRN PRN Reason: Insomnia Furosemide (Lasix) 20 mg PO DAILY@1500 [facility] Last Admin: 05/15/19 14:32 Dose: 20 mg Documented by: Furosemide (Lasix) 40 mg PO DAILY [facility] Gabapentin (Neurontin) 300 mg PO TID [facility] Last Admin: 05/15/19 20:45 Dose: 300 mg Documented by: Heparin Sodium (Porcine) (Heparin) 5,000 unit SQ Q8H [facility] Last Admin: 05/15/19 17:38 Dose: 5,000 unit Documented by: Hydralazine HCl (Apresoline) 50 mg PO TID [facility] Last Admin: 05/15/19 20:51 Dose: 50 mg Documented by: Vancomycin HCl 2,250 mg/ (Sodium Chloride) 500 mls @ 167 mls/hr IVPB Q12H [facility] Sodium Chloride (Saline 0.9%) 1,000 mls @ 100 mls/hr IV .Q10H [facility] Last Admin: 05/15/19 14:22 Dose: 100 mls/hr Documented by: Ibuprofen (Motrin) 400 mg PO Q6HR PRN PRN Reason: Mild Pain or Fever > 100.5 Insulin Aspart (Novolog) 0 unit SQ [facility]; Protocol Last Admin: 05/15/19 20:52 Dose: 8 unit Documented by: Insulin Detemir (Levemir) 25 unit SQ [facility] Last Admin: 05/15/19 20:52 Dose: 25 unit Documented by: Ketorolac Tromethamine (Toradol) 30 mg IVP Q6HR PRN PRN Reason: Moderate Pain Stop: 05/20/19 12:36 Lorazepam (Ativan) 0.5 mg IV Q6HR PRN PRN Reason: Anxiety Morphine Sulfate (Morphine Sulfate (Inj)) 4 mg IV Q4HR PRN PRN Reason: Severe Pain Last Admin: 05/15/19 17:37 Dose: 4 mg Documented by: Naloxone HCl (Narcan) 0.2 mg IV Q2M PRN PRN Reason: Opioid Reversal Ondansetron HCl (Zofran) 4 mg IVP Q8HR PRN PRN Reason: Nausea And Vomiting Pantoprazole Sodium (Protonix) 40 mg IV DAILY [facility] Home Medications Medication Instructions Recorded Confirmed Type Gabapentin [Neurontin] 300 mg PO TID 11/07/17 05/15/19 History Losartan Potassium [Cozaar] 100 mg PO DAILY 11/07/17 05/15/19 History Metoprolol Tartrate [Lopressor] 50 mg PO BID 11/07/17 05/15/19 History Warfarin [Coumadin] 2.5 mg PO SUWETHSA 11/07/17 05/15/19 History amLODIPine [Norvasc] 10 mg PO HS 11/07/17 05/15/19 History hydrALAZINE HCL [Apresoline] 50 mg PO TID 11/07/17 05/15/19 History Atorvastatin [Lipitor] 20 mg PO HS 01/16/19 05/15/19 History Citalopram Hydrobromide [CeleXA] 20 mg PO DAILY 01/16/19 05/15/19 History Furosemide [Lasix] 20 mg PO DAILY@1500 01/16/19 05/15/19 History Furosemide [Lasix] 40 mg PO DAILY 01/16/19 05/15/19 History Ibuprofen [Motrin] 600 mg PO PC-TID 01/16/19 05/15/19 History oxyCODONE HCL [oxyCODONE HCL (IR)] 15 mg PO Q6H 01/16/19 05/15/19 History Cephalexin [Keflex] 500 mg PO Q8HR #90 cap 02/16/19 05/15/19 Rx Cholecalciferol [Vitamin D3 (25 5,000 unit PO DAILY 05/15/19 05/15/19 History Mcg = 1000 Iu)] INSULIN ASPART (NovoLOG) [NovoLOG 30 unit SQ AC-BID 05/15/19 05/15/19 History (formulary)] Insulin Glargine,Hum.rec.anlog 50 mg PO HS 05/15/19 05/15/19 History [Basaglar Kwikpen U-100] Pantoprazole [Protonix] 40 mg PO DAILY 05/15/19 05/15/19 History Vitamin E 1,000 unit PO DAILY 05/15/19 05/15/19 History Warfarin [Coumadin] 5 mg PO MOTUFR 05/15/19 05/15/19 History diphenhydrAMINE [Benadryl] 50 mg PO HS PRN 05/15/19 05/15/19 History Allergies Allergy/AdvReac Type Severity Reaction Status Date / Time No Known Allergies Allergy Verified 05/15/19 10:13 Physical Exam Vitals: Vital Signs Temp Pulse Pulse Resp BP BP Pulse Ox 05/15/19 21:00 98.2 F 60 18 158/84 96 05/15/19 14:30 98.0 F 68 16 130/88 97 05/15/19 13:50 97.9 F 70 16 142/71 98 05/15/19 10:13 98.4 F 63 18 147/97 97 Intake and Output 06/28/19 06/28/19 06/28/19 06:59 14:59 22:59 Intake Total 500 Balance 500 Intake: Oral 500 Other: # Voids 1 Weight 131.542 kg 63 -year-old male presents to Hospital with significant change to his right foot second toe otherwise is not having high-grade fevers or chills HEENT: Anicteric conjunctiva are pink and moist nasal mucosa grossly intact without significant lesions, there is no thrush. Neck: The neck is supple without significant lymphadenopathy or thyromegaly. Lungs: Good bilateral air entry without significant crackles or wheezing. There is no significant bronchial sounds. There is no egophony or dullness. Heart: Regular rate and rhythm with an audible S1-S2, no S3 positive S4 There is no significant murmur click or rub, PMI was nondisplaced. Abdomen: Obese, Positive bowel sounds soft and nontender without palpable masses or organomegaly. There was no guarding or rebound. Extremities: The upper extremities have excellent pulses they are symmetric, no significant petechiae or telangiectasia. No splinter hemorrhages were noted. Neuro: Awake alert oriented to person place and time. There are no acute new gross focal sensory motor deficits. Left foot reveals evidence of the prior amputation of the second toe. Right foot shows evidence of the significant swelling erythema and ulceration to the toe there is some erythema that does track onto the foot proper. With his neuropathy is not painful. He does not have an extensive amount of ascending erythema or cellulitis. No lymphadenopathy is noted. Results CBC & Chem 7: 05/15/19 10:55 05/15/19 10:55 Labs: Abnormal Lab Results - Last 24 Hours (Table) 05/15/19 05/15/19 05/15/19 Range/Units 10:55 10:55 10:55 RDW 17.1 H (11.5-15.5) % PT 18.4 H (9.0-12.0) sec INR 1.9 H (<1.2) APTT 34.7 H (22.0-30.0) sec Glucose 215 H (74-99) mg/dL POC Glucose (mg/dL) (75-99) mg/dL AST 14 L (17-59) U/L ALT 18 L (21-72) U/L C-Reactive Protein 12.2 H (<10.0) mg/L Urine Glucose (UA) (Negative) 05/15/19 05/15/19 05/15/19 Range/Units 17:20 17:22 20:17 RDW (11.5-15.5) % PT (9.0-12.0) sec INR (<1.2) APTT (22.0-30.0) sec Glucose (74-99) mg/dL POC Glucose (mg/dL) 264 H 303 H (75-99) mg/dL AST (17-59) U/L ALT (21-72) U/L C-Reactive Protein (<10.0) mg/L Urine Glucose (UA) 4+ H (Negative) Laboratory Results WBC 9.0 k/uL (3.8-10.6) 05/15/19 10:55 RBC 5.02 m/uL (4.30-5.90) 05/15/19 10:55 Hgb 15.1 gm/dL (13.0-17.5) 05/15/19 10:55 Hct 44.5 % (39.0-53.0) 05/15/19 10:55 MCV 88.6 fL (80.0-100.0) 05/15/19 10:55 MCH 30.0 pg (25.0-35.0) 05/15/19 10:55 MCHC 33.9 g/dL (31.0-37.0) 05/15/19 10:55 RDW 17.1 % (11.5-15.5) H 05/15/19 10:55 Plt Count 192 k/uL (150-450) 05/15/19 10:55 Neutrophils % 63 % 05/15/19 10:55 Lymphocytes % 25 % 05/15/19 10:55 Monocytes % 7 % 05/15/19 10:55 Eosinophils % 3 % 05/15/19 10:55 Basophils % 1 % 05/15/19 10:55 Neutrophils # 5.7 k/uL (1.3-7.7) 05/15/19 10:55 Lymphocytes # 2.2 k/uL (1.0-4.8) 05/15/19 10:55 Monocytes # 0.6 k/uL (0-1.0) 05/15/19 10:55 Eosinophils # 0.3 k/uL (0-0.7) 05/15/19 10:55 Basophils # 0.1 k/uL (0-0.2) 05/15/19 10:55 Anisocytosis Slight 05/15/19 10:55 PT 18.4 sec (9.0-12.0) H 05/15/19 10:55 INR 1.9 (<1.2) H 05/15/19 10:55 APTT 34.7 sec (22.0-30.0) H 05/15/19 10:55 Sodium 139 mmol/L (137-145) 05/15/19 10:55 Potassium 4.1 mmol/L (3.5-5.1) 05/15/19 10:55 Chloride 103 mmol/L (98-107) 05/15/19 10:55 Carbon Dioxide 28 mmol/L (22-30) 05/15/19 10:55 Anion Gap 8 mmol/L 05/15/19 10:55 BUN 20 mg/dL (9-20) 05/15/19 10:55 Creatinine 0.79 mg/dL (0.66-1.25) 05/15/19 10:55 Est GFR (CKD-EPI)AfAm >90 (>60 ml/min/1.73 sqM) 05/15/19 10:55 Est GFR (CKD-EPI)NonAf >90 (>60 ml/min/1.73 sqM) 05/15/19 10:55 Glucose 215 mg/dL (74-99) H 05/15/19 10:55 POC Glucose (mg/dL) 303 mg/dL (75-99) H 05/15/19 20:17 POC Glu [employer] ID Afia Archibald 05/15/19 20:17 Plasma Lactic Acid Kaushik 1.4 mmol/L (0.7-2.0) 05/15/19 10:55 Calcium 9.3 mg/dL (8.4-10.2) 05/15/19 10:55 Total Bilirubin 0.5 mg/dL (0.2-1.3) 05/15/19 10:55 AST 14 U/L (17-59) L 05/15/19 10:55 ALT 18 U/L (21-72) L 05/15/19 10:55 Alkaline Phosphatase 81 U/L (38-126) 06/28/19 10:55 C-Reactive Protein 12.2 mg/L (<10.0) H 05/15/19 10:55 Total Protein 6.8 g/dL (6.3-8.2) 05/15/19 10:55 Albumin 4.2 g/dL (3.5-5.0) 05/15/19 10:55 Urine Color Light Yellow 05/15/19 17:22 Urine Appearance Clear (Clear) 05/15/19 17:22 Urine pH 5.5 (5.0-8.0) 05/15/19 17:22 Ur Specific Martha 1.025 (1.001-1.035) 05/15/19 17:22 Urine Protein Negative (Negative) 05/15/19 17:22 Urine Glucose (UA) 4+ (Negative) H 05/15/19 17:22 Urine Ketones Negative (Negative) 05/15/19 17:22 Urine Blood Negative (Negative) 05/15/19 17:22 Urine Nitrite Negative (Negative) 05/15/19 17:22 Urine Bilirubin Negative (Negative) 05/15/19 17:22 Urine Urobilinogen <2.0 mg/dL (<2.0) 05/15/19 17:22 Ur Leukocyte Esterase Negative (Negative) 05/15/19 17:22 Microbiology 05/15/19 16:00 Toe - Right Second Wound Culture - Preliminary Assessment and Plan (1) Diabetic ulcer of right foot associated with diabetes mellitus due to underlying condition, with necrosis of bone Narrative/Plan: Pleasant 63-year-old male who has a tall but obese build has been having ongoing difficulties with the right foot second toe. He didn't want to proceed with a long course of intravenous antibiotic therapy. Has been treated with oral antibiotic but is now had failure there is worsening the osteomyelitis and these have been seen by vascular surgery. It appears are now plans for him to go to the operating room in the morning for incision and drainage likely amputation to the distal aspect of the toe. MRIs been performed in the necessitate further amputation and debridement. Hopefully there is no significant amount of tracking infection into the foot. At this time antibiotic therapy was started with vancomycin we'll add and Zosyn for now developed over the prior isolated pathogens. We'll care is as per the vascular surgeon at this time. Elevating the foot while he is at rest. Improved glucose control be very helpful. We'll add a multivitamin and monitor. Current Visit: Yes Status: Acute Code(s): E08.621 - DIABETES MELLITUS DUE TO UNDERLYING CONDITION W FOOT ULCER; L97.514 - NON-PRS CHRONIC ULCER OTH PRT RIGHT FOOT W NECROSIS OF BONE SNOMED Code(s): 387853322 (2) Osteomyelitis Current Visit: Yes Status: Acute Code(s): M86.9 - OSTEOMYELITIS, UNSPECIFIED SNOMED Code(s): 58755145 (3) Failure of outpatient treatment Current Visit: Yes Status: Acute Code(s): Z78.9 - OTHER SPECIFIED HEALTH STATUS SNOMED Code(s): 980347479 (4) Diabetes mellitus type 2, uncontrolled, with complications Current Visit: Yes Status: Acute Code(s): E11.8 - TYPE 2 DIABETES MELLITUS WITH UNSPECIFIED COMPLICATIONS; E11.65 - TYPE 2 DIABETES MELLITUS WITH HYPERGLYCEMIA SNOMED Code(s): 78338819
[2019-05-16] MEDS: MORPHINE SULFATE 4 MG/ML SYRINGE IV PRN ×3 (04:02→21:48)
[2019-05-16] MEDS: KETOROLAC 30 MG/ML 1 ML VIAL IVP PRN ×3 (05:37→16:11)
[2019-05-16] MEDS: HEPARIN SODIUM,PORCINE 5,000 UNIT/ML 1 ML VIAL SQ SCH ×2 (07:21→15:44)
[2019-05-16 07:23] LABS: Glucose,Whole Blood 156 mg/dL (75-99)
[2019-05-16] MEDS: INSULIN ASPART (NovoLOG) 100 UNIT/ML VIAL SQ SCH ×4 (07:32→21:44)
[2019-05-16] MEDS: hydrALAZINE HCL 50 MG TAB PO SCH ×3 (07:38→20:18)
[2019-05-16] MEDS: SODIUM CHLORIDE 0.9% 1,000 ML IV SCH ×2 (07:40→17:53)
[2019-05-16] MEDS ORDERED: IV FLUID CONTINUATION 1,000 ML IV ONE (08:15)
[2019-05-16 08:17] LABS: African American GFR (CKD) >90 (>60 ml/min/1.73 sqM); Anion Gap 7 mmol/L; Blood Urea Nitrogen 14 mg/dL (9-20); Calcium 8.5 mg/dL (8.4-10.2); Carbon Dioxide 25 mmol/L (22-30); Chloride 107 mmol/L (98-107); Glucose 158 mg/dL (74-99); Potassium 3.8 mmol/L (3.5-5.1); Sodium 139 mmol/L (137-145)
[2019-05-16 08:31] LABS: INR 1.8 (<1.2); Prothrombin Time 17.4 sec (9.0-12.0)
[2019-05-16 08:36] LABS: Anisocytosis Slight; Basophils % (A) 1 %; Eosinophils # (A) 0.2 k/uL (0-0.7); Eosinophils % (A) 2 %; HCT 41.2 % (39.0-53.0); HGB 13.6 gm/dL (13.0-17.5); Lymphocytes % (A) 27 %; MCH 28.9 pg (25.0-35.0); MCHC 32.9 g/dL (31.0-37.0); MCV 87.8 fL (80.0-100.0); Mean Platelet Volume 7.8; Monocytes # (A) 0.5 k/uL (0-1.0); Monocytes % (A) 7 %; Neutrophils # (A) 4.6 k/uL (1.3-7.7); Neutrophils % (A) 61 %; Platelet Count 185 k/uL (150-450); RDW 16.4 % (11.5-15.5); WBC 7.5 k/uL (3.8-10.6)
[2019-05-16] MEDS ORDERED: LIDOCAINE 1% INJ 10MG/ML (20 ML MDV) SQ ONE (08:36)
[2019-05-16] MEDS ORDERED: PANTOPRAZOLE 40 MG/10 ML VIAL IV SCH (09:00)
[2019-05-16] MEDS: HYDROmorphone 1 MG/ML 1 ML SYRINGE IVP ONE ×2 (09:26→09:43)
[2019-05-16 09:43] LABS: Glucose,Whole Blood 142 mg/dL (75-99)
[2019-05-16 10:45] LABS: Glucose,Whole Blood 160 mg/dL (75-99)
[2019-05-16] MEDS: CITALOPRAM HYDROBROMIDE 20 MG TAB PO SCH (11:14)
[2019-05-16] MEDS: VANCOMYCIN 2,250 MG in SODIUM CHLORIDE 0.9% 500 ML 500 ML IVPB SCH ×2 (11:14→17:49)
[2019-05-16] MEDS: MULTIVITAMINS, THERA 1 EACH TAB PO SCH (11:14)
[2019-05-16] MEDS: GABAPENTIN 300 MG CAP PO SCH ×3 (11:14→20:18)
[2019-05-16] MEDS: CHOLECALCIFEROL 1,000 UNIT TAB PO SCH (11:15)
[2019-05-16] MEDS: FUROSEMIDE 40 MG TAB PO SCH (11:15)
[2019-05-16] MEDS ORDERED: FUROSEMIDE 10 MG/ML 2 ML VIAL IV ONE (11:45)
[2019-05-16 11:47] LABS: Glucose,Whole Blood 247 mg/dL (75-99)
--- NOTE | 2019-05-16 12:05 | P.PN ---
Subjective Progress Note Date: 05/16/19 (Osteomyelitis second toe right foot) Principal diagnosis: Osteomyelitis of the second toe of the right foot. Diabetic foot ulcers. Diabetes mellitus insulin-dependent. Hypertension with hypertensive heart disease Chronic atrial fibrillation on anticoagulation. History of CVA in the past resolved. History of PA in the past and his ejection fraction recovered. Chronic pain syndrome treated by Dr. Cason. Progress note, date of service 05/16/2019. Patient seen and evaluated today [id number], Patient underwent amputation of the second toe of the right foot by Dr. Lagunas today on 05/16/2019. Patient is receiving vancomycin, and Zosyn, and followed by Dr. Jr Everett infe ctious disease. With the probable plan of And prolonged antibiotic due to the osteomyelitis. Diabetes mellitus type 2 insulin-dependent. Atrial fibrillation with the controlled ventricular response. Hypertension with hypertensive heart disease. Mild volume expansion with the IV 100 mL an hour and that has been decreased to KVO. Discussed with the patient in detail, I did inform him that Dr. Phillip Tinoco will be following him this weekend he will be seeing him tomorrow and tell discharge after Dr. Everett design his antibiotic and chronic treatment with the IV as well as clearance from Dr. Lagunas for discharge. Patient on Coumadin as outpatient and he will resume his Coumadin after clear ance from Dr. Lagunas as well as after discharge at home. I will be seeing him after May 25 in the office on my return from [place] of [place]. Today his blood pressure mildly elevated due to the lymphoma expansion and we decreased his IV to KVO. And possibly discontinue tomorrow. In regard of the insulin, currently patient on CBG to scale before meals meals and at bedtime, he is also on long-acting insulin we decrease it from 50 to 25 before the surgery to avoid hypoglycemia, and today we increased it to 30 units subcu at at bedtime. As his diet is well controlled in the hospital, however the patient will be resuming his bruises as outpatient when he discharged total noncompliant with the diet. On the clinical examination today: Patient is conscious alert oriented and he is able to ambulate. Head was normocephalic and atraumatic pupil was equal reactive conjunctiva was pink sclera was nonicteric. Oropharynx is normal and normal hearing, no nasal discharge, Neck was supple no JVD no thyromegaly no lymphadenopathy trachea midline. Chest was clear to auscultation and percussion with the normal breath sounds. Heart irregular irregularities with atrial fibrillation currently controlled v entricular response. Abdomen soft positive bowel sound protuberant. Extremities: Status post right foot second toe amputation, he has 1+ edema bilateral probably secondary to the IV fluid, and we will be decrease IV fluid to KVO and give him IV Lasix 1 dose of 20 mg. Neurologically stable no lateralizing sign and moving 4 extremities. Psychiatry normal morbid. Assessment and plan: Patient postoperative seen and evaluated generally steady stable. In regard of the Coumadin will be started when Dr. Lagunas vascular surgeon cleared him for the start of the Coumadin. The antibiotic designed and long-term care Dr. Jr Everett infectious disease. Dr. Alexander will be following him on the weekend as well as on full discharge . I will be out of state fill 05/25/2019. Objective - Vital Signs Vital signs: Vital Signs Temp 97.8 F 05/16/19 10:05 Pulse 65 05/16/19 10:05 Resp 16 05/16/19 10:05 BP 162/92 05/16/19 10:05 Pulse Ox 90 L 05/16/19 10:05 Intake & Output 05/15/19 05/16/19 05/16/19 18:59 06:59 18:59 Intake Total 500 450 Output Total 50 Balance 500 400 Weight 131.542 kg Intake: IV 450 Oral 500 Output: Estimated Blood Loss 50 Other: # Voids 1 2 - Labs CBC & Chem 7: 05/16/19 07:48 05/16/19 07:48 Labs: Abnormal Lab Results - Last 24 Hours (Table) 05/15/19 05/15/19 05/15/19 Range/Units 10:55 17:20 17:22 RDW (11.5-15.5) % PT 18.4 H (9.0-12.0) sec INR 1.9 H (<1.2) APTT 34.7 H (22.0-30.0) sec Creatinine (0.66-1.25) mg/dL Glucose (74-99) mg/dL POC Glucose (mg/dL) 264 H (75-99) mg/dL Urine Glucose (UA) 4+ H (Negative) 05/15/19 05/16/19 05/16/19 Range/Units 20:17 07:15 07:48 RDW (11.5-15.5) % PT (9.0-12.0) sec INR (<1.2) APTT (22.0-30.0) sec Creatinine 0.61 L (0.66-1.25) mg/dL Glucose 158 H (74-99) mg/dL POC Glucose (mg/dL) 303 H 156 H (75-99) mg/dL Urine Glucose (UA) (Negative) 05/16/19 05/16/19 05/16/19 Range/Units 07:48 07:48 09:33 RDW 16.4 H (11.5-15.5) % PT 17.4 H (9.0-12.0) sec INR 1.8 H (<1.2) APTT (22.0-30.0) sec Creatinine (0.66-1.25) mg/dL Glucose (74-99) mg/dL POC Glucose (mg/dL) 142 H (75-99) mg/dL Urine Glucose (UA) (Negative) 05/16/19 Range/Units 10:30 RDW (11.5-15.5) % PT (9.0-12.0) sec INR (<1.2) APTT (22.0-30.0) sec Creatinine (0.66-1.25) mg/dL Glucose (74-99) mg/dL POC Glucose (mg/dL) 160 H (75-99) mg/dL Urine Glucose (UA) (Negative) Microbiology - Last 24 Hours (Table) 05/15/19 16:00 Gram Stain - Preliminary Toe - Right Second Wound Culture - Preliminary
--- NOTE | 2019-05-16 15:11 | OP ---
OPERATIVE REPORT PREOP DIAGNOSIS: Chronic wound with osteomyelitis, right foot second toe. OPERATION PERFORMED: Right foot second toe amputation at the level of the metatarsophalangeal joint. HISTORY: This patient has history of chronic wound of the right foot second toe and recurrent osteomyelitis. Patient came with infected right foot second toe with redness involving the plantar and dorsal aspect of the second toe with open wound. DESCRIPTION OF PROCEDURE: Patient was brought to the operating room. Right foot was prepped and drapes applied in usual sterile manner. 1% lidocaine was infiltrated and the patient had IV sedation. An elliptical-shaped incision was made on the dorsal aspect of the foot. It went circumferentially around the plantar aspect of the foot, deepened through skin fat and fascia. Tendons were divided on the dorsal and plantar aspect of the foot until we reached the metatarsal pharyngeal joint. Using periosteum elevator, periosteum elevated and the big toe 2nd toe was removed at the metatarsophalangeal joint. There were some digital vessels which were suture ligated with 5-0 Prolene. The wound was irrigated with hydrogen peroxide and saline. After that, incision was closed in 2 layers using 3-0 Vicryl and skin closed with 4-0 nylon with mattress interrupted suture. Dressing applied. Patient tolerated the procedure well. MMODL / IJN: [id number] /
[2019-05-16] MEDS: FUROSEMIDE 20 MG TAB PO SCH (15:44)
[2019-05-16 16:36] VITALS: BMI 36.2
[2019-05-16 17:10] LABS: Glucose,Whole Blood 285 mg/dL (75-99)
[2019-05-16] MEDS: amLODIPine 10 MG TAB PO SCH (20:18)
[2019-05-16] MEDS: ATORVASTATIN 20 MG TAB PO SCH (20:19)
[2019-05-16 20:22] LABS: Glucose,Whole Blood 256 mg/dL (75-99)
[2019-05-16] MEDS ORDERED: INSULIN DETEMIR (LEVEMIR) 100 UNIT/ML SYR SQ SCH (21:00)
[2019-05-17] MEDS: PIPERACILLIN-TAZOBACTAM 3.375 GM in SODIUM CHLORIDE 0.9% 100 ML IVPB SCH ×3 (00:33→16:20)
--- NOTE | 2019-05-17 00:48 | P.PN ---
Subjective Progress Note Date: 05/16/19 63 year old man with longstanding history of diabetes with complications which include prior toe amputation,Has been following with his shot examiner for ongoing difficulties regarding his right foot second toe. He had been evaluated in the wound healing Center and the point and there was evidence of an underlying bony infection and he was offered intravenous antibiotic therapy. He however did not want to proceed with that type of therapy, he had been through this before in the past. He did except some oral antibiotic therapy. However despite this the toe has been having ongoing worsening and has discussed the last time he was seen in wound healing center he would likely move onto an amputation to the toe with the ongoing active osteomyelitis. He was seen in the outpatient clinic and there was worsening there was no probing rate to the bone and he's now been brought into hospital for further intervention. His is seen by vascular surgery and I believe there are plans for the toe amputation in the morning. MRI is been performed to evaluate any further extension of the infection beyond the toe into the foot which could then change the surgical plan. Fortunately the patient is not feeling very ill at this point in time but is aware of the significant difficulty, is admitted to further intervention with overall goal of foot salvage. May 16 2019 the patient is status post amputation of the distal aspect of the great toe. The patient voices that he does not want outpatient intravenous antibiotic therapy. He needs to get up to go to the bathroom because he cannot use a commode or a urinal. He has walked to the bathroom and is now bleeding through his dressing. Objective - Vital Signs Vital signs: Vital Signs Temp 98.3 F 05/16/19 12:43 Pulse 57 L 05/16/19 22:22 Resp 16 05/16/19 12:43 BP 158/95 05/16/19 12:43 Pulse Ox 95 05/16/19 12:43 Intake & Output 05/16/19 05/16/19 05/17/19 06:59 18:59 06:59 Intake Total 500 1530 Output Total 50 Balance 500 1480 Weight 131.542 kg Intake: IV 450 Oral 500 1080 Output: Estimated Blood Loss 50 Other: # Voids 2 3 0 # Bowel Movements 0 - Exam 63 -year-old male presents to Hospital with significant change to his right foot second toe otherwise is not having high-grade fevers or chills HEENT: Anicteric conjunctiva are pink and moist nasal mucosa grossly intact without significant lesions, there is no thrush. Neck: The neck is supple without significant lymphadenopathy or thyromegaly. Lungs: Good bilateral air entry without significant crackles or wheezing. There is no significant bronchial sounds. There is no egophony or dullness. Heart: Regular rate and rhythm with an audible S1-S2, no S3 positive S4 There is no significant murmur click or rub, PMI was nondisplaced. Abdomen: Obese, Positive bowel sounds soft and nontender without palpable masses or organomegaly. There was no guarding or rebound. Extremities: The upper extremities have excellent pulses they are symmetric, no significant petechiae or telangiectasia. No splinter hemorrhages were noted. Neuro: Awake alert oriented to person place and time. There are no acute new gross focal sensory motor deficits. Left foot reveals evidence of the prior amputation of the second toe. Right foot reveals that is the recent surgical intervention and there some breakthrough bleeding into the dressing that is reinforced With his neuropathy is not painful. He does not have an extensive amount of ascending erythema or cellulitis. No lymphadenopathy is noted. - Labs CBC & Chem 7: 05/16/19 07:48 05/16/19 07:48 Labs: Abnormal Lab Results - Last 24 Hours (Table) 05/16/19 05/16/19 05/16/19 Range/Units 07:15 07:48 07:48 RDW (11.5-15.5) % PT 17.4 H (9.0-12.0) sec INR 1.8 H (<1.2) Creatinine 0.61 L (0.66-1.25) mg/dL Glucose 158 H (74-99) mg/dL POC Glucose (mg/dL) 156 H (75-99) mg/dL 05/16/19 05/16/19 05/16/19 Range/Units 07:48 09:33 10:30 RDW 16.4 H (11.5-15.5) % PT (9.0-12.0) sec INR (<1.2) Creatinine (0.66-1.25) mg/dL Glucose (74-99) mg/dL POC Glucose (mg/dL) 142 H 160 H (75-99) mg/dL 05/16/19 05/16/19 05/16/19 Range/Units 11:28 17:05 20:11 RDW (11.5-15.5) % PT (9.0-12.0) sec INR (<1.2) Creatinine (0.66-1.25) mg/dL Glucose (74-99) mg/dL POC Glucose (mg/dL) 247 H 285 H 256 H (75-99) mg/dL Microbiology - Last 24 Hours (Table) 05/16/19 09:12 Gram Stain - Preliminary Other - Other Tissue Culture - Preliminary 05/15/19 16:00 Gram Stain - Preliminary Toe - Right Second Wound Culture - Preliminary Gram Neg Bacilli 05/16/19 09:12 Anaerobic Culture - Preliminary Other - Other 05/15/19 10:55 Blood Culture - Preliminary Blood No Growth after 24 hours Laboratory Results WBC 7.5 k/uL (3.8-10.6) 05/16/19 07:48 RBC 4.70 m/uL (4.30-5.90) 05/16/19 07:48 Hgb 13.6 gm/dL (13.0-17.5) 05/16/19 07:48 Hct 41.2 % (39.0-53.0) 05/16/19 07:48 MCV 87.8 fL (80.0-100.0) 05/16/19 07:48 MCH 28.9 pg (25.0-35.0) 05/16/19 07:48 MCHC 32.9 g/dL (31.0-37.0) 05/16/19 07:48 RDW 16.4 % (11.5-15.5) H 05/16/19 07:48 Plt Count 185 k/uL (150-450) 05/16/19 07:48 Neutrophils % 61 % 05/16/19 07:48 Lymphocytes % 27 % 05/16/19 07:48 Monocytes % 7 % 05/16/19 07:48 Eosinophils % 2 % 05/16/19 07:48 Basophils % 1 % 05/16/19 07:48 Neutrophils # 4.6 k/uL (1.3-7.7) 05/16/19 07:48 Lymphocytes # 2.0 k/uL (1.0-4.8) 05/16/19 07:48 Monocytes # 0.5 k/uL (0-1.0) 05/16/19 07:48 Eosinophils # 0.2 k/uL (0-0.7) 05/16/19 07:48 Basophils # 0.0 k/uL (0-0.2) 05/16/19 07:48 Anisocytosis Slight 05/16/19 07:48 PT 17.4 sec (9.0-12.0) H 05/16/19 07:48 INR 1.8 (<1.2) H 05/16/19 07:48 APTT 34.7 sec (22.0-30.0) H 05/15/19 10:55 Sodium 139 mmol/L (137-145) 05/16/19 07:48 Potassium 3.8 mmol/L (3.5-5.1) 05/16/19 07:48 Chloride 107 mmol/L (98-107) 05/16/19 07:48 Carbon Dioxide 25 mmol/L (22-30) 05/16/19 07:48 Anion Gap 7 mmol/L 05/16/19 07:48 BUN 14 mg/dL (9-20) 05/16/19 07:48 Creatinine 0.61 mg/dL (0.66-1.25) L 05/16/19 07:48 Est GFR (CKD-EPI)AfAm >90 (>60 ml/min/1.73 sqM) 05/16/19 07:48 Est GFR (CKD-EPI)NonAf >90 (>60 ml/min/1.73 sqM) 05/16/19 07:48 Glucose 158 mg/dL (74-99) H 05/16/19 07:48 POC Glucose (mg/dL) 256 mg/dL (75-99) H 05/16/19 20:11 POC Glu Abstracter ID Afia Archibald 05/16/19 20:11 Plasma Lactic Acid Kaushik 1.4 mmol/L (0.7-2.0) 05/15/19 10:55 Calcium 8.5 mg/dL (8.4-10.2) 05/16/19 07:48 Total Bilirubin 0.5 mg/dL (0.2-1.3) 05/15/19 10:55 AST 14 U/L (17-59) L 05/15/19 10:55 ALT 18 U/L (21-72) L 05/15/19 10:55 Alkaline Phosphatase 81 U/L (38-126) 05/15/19 10:55 C-Reactive Protein 12.2 mg/L (<10.0) H 05/15/19 10:55 Total Protein 6.8 g/dL (6.3-8.2) 05/15/19 10:55 Albumin 4.2 g/dL (3.5-5.0) 05/15/19 10:55 Urine Color Light Yellow 05/15/19 17:22 Urine Appearance Clear (Clear) 05/15/19 17:22 Urine pH 5.5 (5.0-8.0) 05/15/19 17:22 Ur Specific [place] 1.025 (1.001-1.035) 05/15/19 17:22 Urine Protein Negative (Negative) 05/15/19 17:22 Urine Glucose (UA) 4+ (Negative) H 05/15/19 17:22 Urine Ketones Negative (Negative) 05/15/19 17:22 Urine Blood Negative (Negative) 05/15/19 17:22 Urine Nitrite Negative (Negative) 05/15/19 17:22 Urine Bilirubin Negative (Negative) 05/15/19 17:22 Urine Urobilinogen <2.0 mg/dL (<2.0) 05/15/19 17:22 Ur Leukocyte Esterase Negative (Negative) 05/15/19 17:22 Microbiology 05/16/19 09:12 Other - Other Gram Stain - Preliminary 05/16/19 09:12 Other - Other Tissue Culture - Preliminary 05/15/19 16:00 Toe - Right Second Gram Stain - Preliminary 05/15/19 16:00 Toe - Right Second Wound Culture - Preliminary Gram Neg Bacilli 05/16/19 09:12 Other - Other Anaerobic Culture - Preliminary 05/15/19 10:55 Blood Blood Culture - Preliminary No Growth after 24 hours Assessment and Plan (1) Diabetic ulcer of right foot associated with diabetes mellitus due to underlying condition, with necrosis of bone Narrative/Plan: Pleasant 63-year-old male who has a tall but obese build has been having ongoing difficulties with the right foot second toe. He didn't want to proceed with a long course of intravenous antibiotic therapy. Has been treated with oral antibiotic but is now had failure there is worsening the osteomyelitis and these have been seen by vascular surgery. It appears are now plans for him to go to the operating room in the morning for incision and drainage likely amputation to the distal aspect of the toe. MRIs been performed in the necessitate further amputation and debridement. Hopefully there is no significant amount of trackin g infection into the foot. At this time antibiotic therapy was started with vancomycin we'll add and Zosyn for now developed over the prior isolated pathogens. We'll care is as per the vascular surgeon at this time. Elevating the foot while he is at rest. Improved glucose control be very helpful. We'll add a multivitamin and monitor 2018 patient is now status post the surgical amputation of the second toe of the right foot. We'll continue antibiotic therapy while he is in hospital and h e will likely allow oral antibiotic and he goes home but does not want to treat his antibiotic therapy as an outpatient. Will be some kind of offloading footgear given his inability to comply with offloading. Improved glucose control and adequate protein intake, is discussed with the dietitianand Rik is offered. Current Visit: Yes Status: Acute Code(s): E08.621 - DIABETES MELLITUS DUE TO UNDERLYING CONDITION W FOOT ULCER; L97.514 - NON-PRS CHRONIC ULCER OTH PRT RIGHT FOOT W NECROSIS OF BONE SNOMED Code(s): 356634839 (2) Osteomyelitis Current Visit: Yes Status: Acute Code(s): M86.9 - OSTEOMYELITIS, UNSPECIFIED SNOMED Code(s): 79571926 (3) Failure of outpatient treatment Current Visit: Yes Status: Acute Code(s): Z78.9 - OTHER SPECIFIED HEALTH STATUS SNOMED Code(s): 098534062 (4) Diabetes mellitus type 2, uncontrolled, with complications Current Visit: Yes Status: Acute Code(s): E11.8 - TYPE 2 DIABETES MELLITUS WITH UNSPECIFIED COMPLICATIONS; E11.65 - TYPE 2 DIABETES MELLITUS WITH HYPERGLYCEMIA SNOMED Code(s): 06831538
[2019-05-17] MEDS: VANCOMYCIN 2,250 MG in SODIUM CHLORIDE 0.9% 500 ML 500 ML IVPB SCH ×2 (00:49→08:36)
[2019-05-17] MEDS: KETOROLAC 30 MG/ML 1 ML VIAL IVP PRN ×2 (00:59→08:36)
[2019-05-17] MEDS: HEPARIN SODIUM,PORCINE 5,000 UNIT/ML 1 ML VIAL SQ SCH ×3 (01:24→16:19)
[2019-05-17] MEDS: hydrALAZINE HCL 50 MG TAB PO SCH ×3 (05:58→21:55)
[2019-05-17] MEDS: MORPHINE SULFATE 4 MG/ML SYRINGE IV PRN ×2 (05:59→22:06)
[2019-05-17 06:58] LABS: Glucose,Whole Blood 222 mg/dL (75-99)
[2019-05-17] MEDS ORDERED: VANCOMYCIN TROUGH DUE 1 EACH MISC MISCELLANE ONE (07:00)
[2019-05-17] MEDS: INSULIN ASPART (NovoLOG) 100 UNIT/ML VIAL SQ SCH ×4 (08:35→21:56)
[2019-05-17] MEDS: FUROSEMIDE 40 MG TAB PO SCH (08:35)
[2019-05-17] MEDS: MULTIVITAMINS, THERA 1 EACH TAB PO SCH (08:35)
[2019-05-17] MEDS: PANTOPRAZOLE 40 MG TABLET PO SCH (08:35)
[2019-05-17] MEDS: CHOLECALCIFEROL 1,000 UNIT TAB PO SCH (08:35)
[2019-05-17] MEDS: GABAPENTIN 300 MG CAP PO SCH ×3 (08:36→21:55)
[2019-05-17] MEDS: CITALOPRAM HYDROBROMIDE 20 MG TAB PO SCH (08:36)
--- NOTE | 2019-05-17 10:16 | P.PN ---
Progress Note - Text The patient is a 63-year-old gentleman. He is a patient of Dr. Hoff for whom I am covering. The patient had surgical resection of osteomyelitis of the second toe, right foot. This was yesterday the . Surgical resection of the right foot, second toe at the level of the metatarsal phalangeal joint. The patient is treated for the underlying osteomyelitis with IV antibiotics. He is also treated for chronic conditions that include diabetes-insulin dependent Hypertension Chronic atrial fibrillation on anticoagulation Coronary artery disease and previous CVA. Chronic pain syndrome. This morning he is sitting up in bed. Overall pleasant. Does not appear to be in any acute distress. Vital signs show a temperature of 98.1 with a pulse 77 and respirations 18. Blood pressure 167/107 and his O2 saturation was 95. Lung and heart exam is clear and regular. The foot is wrapped and dressed. No new neurological deficits noted. Laboratory Vancomycin trough was 23.4. Accu-Cheks have been running in the 200 range from 222 up to 285 the last 24 hours. Impressions and plans Patient has undergone amputation as stated above of the second toe of the right foot. Coumadin is to be restarted apparently today. Discussed with patient likely need for home antibiotics and possible further IV procedure. We'll await for further recommendations from infectious disease. A long-acting Levemir insulin was increased up to 36 units. Hopefully to gain better control of his blood sugar. Important for the need to stick with his treatment plan to completion to prevent further recurrence and hospitalization discussed with patient today at bedside. Also we'll continue to monitor blood pressure and may consider further medications if continued to be elevated.
[2019-05-17 12:08] LABS: Glucose,Whole Blood 305 mg/dL (75-99)
[2019-05-17] MEDS: FUROSEMIDE 20 MG TAB PO SCH (16:19)
[2019-05-17 17:03] LABS: Glucose,Whole Blood 244 mg/dL (75-99)
[2019-05-17] MEDS: SODIUM CHLORIDE 0.9% 1,000 ML IV SCH (17:28)
[2019-05-17] MEDS: VANCOMYCIN 2,000 MG in SODIUM CHLORIDE 0.9% 500 ML 500 ML IVPB SCH (17:28)
[2019-05-17 18:18] LABS: INR 1.1 (<1.2); Prothrombin Time 11.6 sec (9.0-12.0)
[2019-05-17] MEDS ORDERED: WARFARIN 5 MG TAB PO ONE (19:00)
[2019-05-17 21:30] LABS: Glucose,Whole Blood 381 mg/dL (75-99)
[2019-05-17] MEDS: amLODIPine 10 MG TAB PO SCH (21:55)
[2019-05-17] MEDS: ATORVASTATIN 20 MG TAB PO SCH (21:55)
[2019-05-17] MEDS: INSULIN DETEMIR (LEVEMIR) 100 UNIT/ML SYR SQ SCH (21:56)
[2019-05-18] MEDS: PIPERACILLIN-TAZOBACTAM 3.375 GM in SODIUM CHLORIDE 0.9% 100 ML IVPB SCH ×4 (00:43→23:55)
[2019-05-18] MEDS: VANCOMYCIN 2,000 MG in SODIUM CHLORIDE 0.9% 500 ML 500 ML IVPB SCH ×3 (00:44→18:04)
[2019-05-18] MEDS: HEPARIN SODIUM,PORCINE 5,000 UNIT/ML 1 ML VIAL SQ SCH ×4 (00:45→23:55)
[2019-05-18] MEDS: MORPHINE SULFATE 4 MG/ML SYRINGE IV PRN ×3 (04:24→18:08)
[2019-05-18 07:12] LABS: Glucose,Whole Blood 198 mg/dL (75-99)
[2019-05-18] MEDS: hydrALAZINE HCL 50 MG TAB PO SCH ×3 (07:25→21:09)
[2019-05-18] MEDS: INSULIN ASPART (NovoLOG) 100 UNIT/ML VIAL SQ SCH ×4 (07:25→21:10)
[2019-05-18] MEDS: KETOROLAC 30 MG/ML 1 ML VIAL IVP PRN (07:25)
[2019-05-18] MEDS: GABAPENTIN 300 MG CAP PO SCH ×3 (07:25→21:09)
[2019-05-18] MEDS: CHOLECALCIFEROL 1,000 UNIT TAB PO SCH (07:25)
[2019-05-18] MEDS: FUROSEMIDE 40 MG TAB PO SCH (07:26)
[2019-05-18] MEDS: PANTOPRAZOLE 40 MG TABLET PO SCH (07:26)
[2019-05-18] MEDS: DOCUSATE 100 MG CAP PO SCH ×2 (07:26→20:20)
[2019-05-18] MEDS: CITALOPRAM HYDROBROMIDE 20 MG TAB PO SCH (07:26)
[2019-05-18] MEDS: MULTIVITAMINS, THERA 1 EACH TAB PO SCH (07:26)
--- NOTE | 2019-05-18 07:32 | P.PN ---
Progress Note - Text The patient is a 63-year-old gentleman. He is a patient of Dr. Hoff for whom I'm covering for medical concerns. The patient has recent undergone surgical resection of osteomyelitis of the second toe of the right foot. He is anticipating likely discharge to home by his vascular surgeon and infectious disease specialist today. Patient does have underlying diabetes, hypertension, atrial fibrillation coronary artery disease and previous CVA. This morning he is sitting up at the side of the bed. Alert and oriented. No acute distress. He denies any chest pain or shortness of breath. No nausea or vomiting. Temperature is 97.8 with a pulse of 79 and respirations 18. Blood pressure 174/97 and he is 95% saturated on room air. Lung and heart examination is clear with rate controlled. Abdomen nontender. Right foot is bandaged at this time. There are no neurological deficits or changes. Laboratory Last blood sugar was 198. INR yesterday was 1.1. Impressions and plans Discussed with patient this morning also discussed with nursing staff. As directed previously by Dr. Hoff, patient to resume his home medications upon discharge. He is to resume his Coumadin along with his regular follow-up INRs. He will need to follow-up with vascular surgery. Need to follow-up with Dr. Hoff upon his return. If he has any concerns or problems. Call Dr. Hoff's office and they will direct him to the doctor who is application development intern for him while Dr. Hoff is away. Please call if any questions or concerns or problems.
[2019-05-18 11:43] LABS: African American GFR (CKD) >90 (>60 ml/min/1.73 sqM); Anion Gap 8 mmol/L; Blood Urea Nitrogen 14 mg/dL (9-20); Calcium 8.8 mg/dL (8.4-10.2); Carbon Dioxide 28 mmol/L (22-30); Chloride 104 mmol/L (98-107); Glucose 206 mg/dL (74-99); Potassium 3.5 mmol/L (3.5-5.1); Sodium 140 mmol/L (137-145)
[2019-05-18 11:46] LABS: INR 1.1 (<1.2); Prothrombin Time 11.8 sec (9.0-12.0)
[2019-05-18 12:16] LABS: Glucose,Whole Blood 219 mg/dL (75-99)
[2019-05-18] MEDS: FUROSEMIDE 20 MG TAB PO SCH (14:11)
[2019-05-18 17:29] LABS: Glucose,Whole Blood 264 mg/dL (75-99)
[2019-05-18] MEDS ORDERED: WARFARIN 5 MG TAB PO ONE (18:00)
[2019-05-18] MEDS: ATORVASTATIN 20 MG TAB PO SCH (20:20)
[2019-05-18] MEDS: amLODIPine 10 MG TAB PO SCH (20:20)
[2019-05-18 20:40] LABS: Glucose,Whole Blood 331 mg/dL (75-99)
[2019-05-18] MEDS: INSULIN DETEMIR (LEVEMIR) 100 UNIT/ML SYR SQ SCH (21:10)
[2019-05-18] MEDS: SODIUM CHLORIDE 0.9% 1,000 ML IV SCH (21:11)
[2019-05-19] MEDS: MORPHINE SULFATE 4 MG/ML SYRINGE IV PRN ×4 (01:34→20:35)
[2019-05-19] MEDS: VANCOMYCIN 2,000 MG in SODIUM CHLORIDE 0.9% 500 ML 500 ML IVPB SCH ×2 (02:14→09:17)
[2019-05-19 07:04] LABS: Glucose,Whole Blood 159 mg/dL (75-99)
--- NOTE | 2019-05-19 07:40 | P.PN ---
Progress Note - Text The patient is a 63-year-old gentleman who is a patient of Dr. Hoff for whom I am covering. Patient has undergone surgical resection frosty myelitis of the second toe of the right foot. The patient is being followed by vascular surgery and infectious disease. Patient is anticipating possible discharge today. Patient does have underlying diabetes, hypertension, atrial fibrillation and coronary artery disease along with a previous CVA. This morning patient is sitting up in bed. Alert and pleasant. In no acute distress. I temperature is 97.7 with a pulse of 68 and respirations 16. Blood pressure 159/95 and he is 95% saturated on room air. Respirations are unremarkable. Lungs are clear. No new neurological deficits. Right foot is bandaged. Accu-Chek this morning is down to 159. Impressions and plans If okay with vascular surgery and infectious disease plans are for discharge to home today. Patient to follow-up with Dr. Hoff and continue appointments with his vascular surgeon. This was discussed with patient and nursing staff this morning. Upon discharge she is to resume his previous home medications that were p rescribed by Dr. Hoff.
[2019-05-19] MEDS: KETOROLAC 30 MG/ML 1 ML VIAL IVP PRN (07:52)
[2019-05-19] MEDS: INSULIN ASPART (NovoLOG) 100 UNIT/ML VIAL SQ SCH ×4 (07:54→20:35)
[2019-05-19] MEDS: PIPERACILLIN-TAZOBACTAM 3.375 GM in SODIUM CHLORIDE 0.9% 100 ML IVPB SCH ×3 (07:54→23:23)
[2019-05-19] MEDS: HEPARIN SODIUM,PORCINE 5,000 UNIT/ML 1 ML VIAL SQ SCH ×3 (07:55→23:23)
[2019-05-19] MEDS: DOCUSATE 100 MG CAP PO SCH ×2 (07:55→20:03)
[2019-05-19] MEDS: CITALOPRAM HYDROBROMIDE 20 MG TAB PO SCH (07:55)
[2019-05-19] MEDS: CHOLECALCIFEROL 1,000 UNIT TAB PO SCH (07:55)
[2019-05-19] MEDS: MULTIVITAMINS, THERA 1 EACH TAB PO SCH (07:55)
[2019-05-19] MEDS: FUROSEMIDE 40 MG TAB PO SCH (07:55)
[2019-05-19] MEDS: PANTOPRAZOLE 40 MG TABLET PO SCH (07:55)
[2019-05-19] MEDS: hydrALAZINE HCL 50 MG TAB PO SCH ×3 (07:55→20:36)
[2019-05-19] MEDS: GABAPENTIN 300 MG CAP PO SCH ×3 (07:56→20:36)
[2019-05-19] MEDS ORDERED: VANCOMYCIN TROUGH DUE 1 EACH MISC MISCELLANE ONE (08:00)
[2019-05-19 09:43] LABS: INR 1.3 (<1.2); Prothrombin Time 13.7 sec (9.0-12.0)
[2019-05-19 09:51] LABS: African American GFR (CKD) >90 (>60 ml/min/1.73 sqM)
[2019-05-19 12:30] LABS: Glucose,Whole Blood 212 mg/dL (75-99)
[2019-05-19] MEDS: FUROSEMIDE 20 MG TAB PO SCH (15:06)
[2019-05-19 17:03] LABS: Glucose,Whole Blood 367 mg/dL (75-99)
[2019-05-19] MEDS: SODIUM CHLORIDE 0.9% 1,000 ML IV SCH (17:04)
[2019-05-19] MEDS: VANCOMYCIN 1,750 MG in SODIUM CHLORIDE 0.9% 500 ML 500 ML IVPB SCH (17:04)
[2019-05-19] MEDS ORDERED: WARFARIN 3 MG TAB PO ONE (18:00)
--- NOTE | 2019-05-19 18:12 | PN ---
PROGRESS NOTE This patient has a history of right foot second toe gangrene. This patient had second toe amputation done with primary closure. The patient's dressing has been changed. There is still some mild drainage noted at the incision site. The patient was advised to be [id number], but he is noncompliant. Dressing was changed; we will use some Aquacel Silver on the incision site and dressing was reapplied. At this point we would like to give another couple of days of [id number] and IV antibiotics. The patient was advised not to go without help, so as to avoid any weight-bearing by walking on his foot. MMODL / IJN: [id number] /
[2019-05-19] MEDS: ATORVASTATIN 20 MG TAB PO SCH (20:03)
[2019-05-19] MEDS: amLODIPine 10 MG TAB PO SCH (20:03)
[2019-05-19 20:24] LABS: Glucose,Whole Blood 313 mg/dL (75-99)
[2019-05-19] MEDS: INSULIN DETEMIR (LEVEMIR) 100 UNIT/ML SYR SQ SCH (20:35)
[2019-05-20] MEDS: VANCOMYCIN 1,750 MG in SODIUM CHLORIDE 0.9% 500 ML 500 ML IVPB SCH ×3 (00:59→17:01)
[2019-05-20] MEDS: MORPHINE SULFATE 4 MG/ML SYRINGE IV PRN ×4 (03:44→20:20)
[2019-05-20 07:10] LABS: Glucose,Whole Blood 188 mg/dL (75-99)
[2019-05-20] MEDS: CHOLECALCIFEROL 1,000 UNIT TAB PO SCH (07:35)
[2019-05-20] MEDS: HEPARIN SODIUM,PORCINE 5,000 UNIT/ML 1 ML VIAL SQ SCH ×3 (07:35→23:30)
[2019-05-20] MEDS: INSULIN ASPART (NovoLOG) 100 UNIT/ML VIAL SQ SCH ×4 (07:35→21:01)
[2019-05-20] MEDS: hydrALAZINE HCL 50 MG TAB PO SCH ×3 (07:35→21:02)
[2019-05-20] MEDS: MULTIVITAMINS, THERA 1 EACH TAB PO SCH (07:35)
[2019-05-20] MEDS: FUROSEMIDE 40 MG TAB PO SCH (07:36)
[2019-05-20] MEDS: CITALOPRAM HYDROBROMIDE 20 MG TAB PO SCH (07:36)
[2019-05-20] MEDS: PANTOPRAZOLE 40 MG TABLET PO SCH (07:36)
[2019-05-20] MEDS: DOCUSATE 100 MG CAP PO SCH ×2 (07:36→20:20)
[2019-05-20] MEDS: PIPERACILLIN-TAZOBACTAM 3.375 GM in SODIUM CHLORIDE 0.9% 100 ML IVPB SCH ×3 (07:37→23:29)
[2019-05-20] MEDS: GABAPENTIN 300 MG CAP PO SCH ×3 (07:37→21:02)
--- NOTE | 2019-05-20 08:08 | PN ---
PROGRESS NOTE Mr. Cisneros is a 63-year-old gentleman, who is actually a patient of Dr. Hoff for whom I am covering. Patient is post amputation of the right second toe for osteomyelitis. He is presently being maintained on IV antibiotics. He was seen yesterday by Vascular Surgery, Dr. Ling, and upon dressing change, there was still some drainage present at the incision site and he has recommended the patient to continue with IV antibiotics for the next couple days and nonweightbearing. Patient does have underlying diabetes and hypertension, atrial fibrillation, and coronary artery disease along with a previous CVA. He is sitting up at the side of the bed, alert and pleasant. Nursing staff is in the room. Temperature is 97.7, pulse 56, respirations 18, and blood pressure 159/65, and he is 95% saturated on room air. Respirations are normal and there are no neurological deficits. Bandages intact. His Accu-Chek this morning is 188, although it did climb up to the 300s. His last INR yesterday was 1.3. Vancomycin trough was 20.9. GFR is greater than 90 with creatinine 0.79 yesterday. At this time with his blood sugars continued to be increased, we will bump up his Levemir insulin to try to get better control. Continue him on his other medications at this time pending final okay from Surgery and Infectious Disease for discharge. He is presently on Coumadin as per protocol and presently on IV vancomycin and Zosyn. MMODL / IJN: [id number] / AILYN
[2019-05-20 09:18] LABS: INR 1.6 (<1.2); Prothrombin Time 15.9 sec (9.0-12.0)
[2019-05-20 09:32] LABS: African American GFR (CKD) >90 (>60 ml/min/1.73 sqM)
[2019-05-20 12:47] LABS: Glucose,Whole Blood 236 mg/dL (75-99)
[2019-05-20] MEDS: FUROSEMIDE 20 MG TAB PO SCH (15:45)
[2019-05-20 17:19] LABS: Glucose,Whole Blood 242 mg/dL (75-99)
[2019-05-20] MEDS: SODIUM CHLORIDE 0.9% 1,000 ML IV SCH (17:26)
[2019-05-20] MEDS ORDERED: WARFARIN 5 MG TAB PO ONE (18:00)
[2019-05-20] MEDS: ATORVASTATIN 20 MG TAB PO SCH (20:19)
[2019-05-20] MEDS: amLODIPine 10 MG TAB PO SCH (20:20)
[2019-05-20 20:56] LABS: Glucose,Whole Blood 281 mg/dL (75-99)
[2019-05-20] MEDS ORDERED: INSULIN DETEMIR (LEVEMIR) 100 UNIT/ML SYR SQ SCH (21:00)
[2019-05-20 22:16] VITALS: RESP 20
[2019-05-21] MEDS: MORPHINE SULFATE 4 MG/ML SYRINGE IV PRN ×2 (00:30→08:29)
[2019-05-21] MEDS: VANCOMYCIN 1,750 MG in SODIUM CHLORIDE 0.9% 500 ML 500 ML IVPB SCH ×2 (00:31→09:39)
[2019-05-21 05:33] VITALS: BP 174/99; PULSE 63; TEMP 98.3
[2019-05-21 07:22] LABS: Glucose,Whole Blood 212 mg/dL (75-99)
[2019-05-21] MEDS ORDERED: VANCOMYCIN TROUGH DUE 1 EACH MISC MISCELLANE ONE (08:00)
[2019-05-21 08:21] LABS: INR 1.9 (<1.2); Prothrombin Time 18.9 sec (9.0-12.0)
[2019-05-21 08:22] LABS: African American GFR (CKD) >90 (>60 ml/min/1.73 sqM)
[2019-05-21] MEDS: HEPARIN SODIUM,PORCINE 5,000 UNIT/ML 1 ML VIAL SQ SCH (08:29)
[2019-05-21] MEDS: GABAPENTIN 300 MG CAP PO SCH (08:29)
[2019-05-21] MEDS: FUROSEMIDE 40 MG TAB PO SCH (08:30)
[2019-05-21] MEDS: MULTIVITAMINS, THERA 1 EACH TAB PO SCH (08:30)
[2019-05-21] MEDS: PANTOPRAZOLE 40 MG TABLET PO SCH (08:30)
[2019-05-21] MEDS: CHOLECALCIFEROL 1,000 UNIT TAB PO SCH (08:30)
[2019-05-21] MEDS: DOCUSATE 100 MG CAP PO SCH (08:30)
[2019-05-21] MEDS: hydrALAZINE HCL 50 MG TAB PO SCH (08:30)
[2019-05-21] MEDS: INSULIN ASPART (NovoLOG) 100 UNIT/ML VIAL SQ SCH ×2 (08:30→12:42)
[2019-05-21] MEDS: PIPERACILLIN-TAZOBACTAM 3.375 GM in SODIUM CHLORIDE 0.9% 100 ML IVPB SCH (08:30)
[2019-05-21] MEDS: CITALOPRAM HYDROBROMIDE 20 MG TAB PO SCH (08:30)
--- NOTE | 2019-05-21 11:52 | PN ---
PROGRESS NOTE This is a 63-year-old diabetic male who has a right foot second toe amputation done for wet gangrene osteo. The patient has been treated with IV antibiotic and today we changed the dressing. Stump site is healing. Slight redness noted. No discharge noted. The patient will be going home today. We will follow in the wound clinic on Saturday. Advised nonweightbearing and local wound care and p.o. antibiotic by Infectious Disease. MMODL / IJN: [id number] /
[2019-05-21 11:56] LABS: Glucose,Whole Blood 228 mg/dL (75-99)
--- NOTE | 2019-05-21 12:09 | P.PN ---
Progress Note - Text The patient is a 63-year-old gentleman who is a patient of Dr. Hoff for whom I am covering. The patient is post amputation of the right second toe for osteomyelitis. Patient has been cleared for discharge by vascular surgery and infectious disease today. Patient this morning is up and alert. Sitting up in bed. Pleasant. No complaints of chest pain or shortness of breath. No nausea or vomiting. Vital signs show temperature 98.3 with a pulse is 63 and respirations 20. Blood pressure 174/99 and he is 95% saturated on room air. Respirations are unlabored and normal. No new neurological deficits. Right foot is bandaged. Laboratory INR is 1.9. Creatinine is 0.79 and his GFR is greater than 90. Blood sugars 228. Vancomycin trough is 22.1. Impressions and plans Discussed with patient and nursing staff. Plans are to discharge showed to home today. Patient will continue his home medications as previously ordered for his chronic medical problems by Dr. Hoff for his diabetes and hypertension. He does have medication for pain at home. Apparently he will be on ciprofloxacin as an outpatient orally. He is to follow up with wound care clinic in 3-5 days. He will follow-up with Dr. Hoff next week. He has had some mildly elevated blood pressures but these will be followed as an outpatient to see if further antihypertensive medications may be in order. Also he'll follow-up with outpatient INRs especially with being on ciprofloxacin for any changes in dosage. If any acute problems should develop he should call Dr. Hoff's number for the teletypesetter monitor doctor or return to the emergency room if problems. Discussed with patient and nursing staff this morning.
[2019-05-21] MEDS ORDERED: WARFARIN 5 MG TAB PO ONE (18:00)
[2019-05-21] MEDS ORDERED: VANCOMYCIN 1,500 MG in SODIUM CHLORIDE 0.9% 250 ML IVPB SCH (22:00)
== END 2019-05-21 13:23 | disposition home or self-care (01) | DRG 617 ==
LOC: EC 10:09 → 4MS4W 13:23
PROVIDERS: ADMIT Internal Medicine; ATTEND Internal Medicine
PROC: 0Y6R0Z0 Detachment at Right 2nd Toe, Complete, Open Approach (ICD-10-PCS; principal; 2019-05-15)
DX: E11.69 Type 2 diabetes mellitus with other specified complication (principal); E11.52 Type 2 diabetes mellitus with diabetic peripheral angiopathy with gangrene; M86.9 Osteomyelitis, unspecified; I96 Gangrene, not elsewhere classified; E11.42 Type 2 diabetes mellitus with diabetic polyneuropathy; E11.65 Type 2 diabetes mellitus with hyperglycemia; I48.2 Chronic atrial fibrillation; E11.621 Type 2 diabetes mellitus with foot ulcer; I11.9 Hypertensive heart disease without heart failure; L97.514 Non-pressure chronic ulcer of other part of right foot with necrosis of bone; E66.9 Obesity, unspecified; E78.5 Hyperlipidemia, unspecified; F17.200 Nicotine dependence, unspecified, uncomplicated; G89.4 Chronic pain syndrome; I25.10 Atherosclerotic heart disease of native coronary artery without angina pectoris; I25.2 Old myocardial infarction; I87.2 Venous insufficiency (chronic) (peripheral); K21.9 Gastro-esophageal reflux disease without esophagitis; M20.41 Other hammer toe(s) (acquired), right foot; F32.9 Major depressive disorder, single episode, unspecified; M19.90 Unspecified osteoarthritis, unspecified site; Z68.36 Body mass index [BMI] 36.0-36.9, adult; Z79.01 Long term (current) use of anticoagulants; Z79.4 Long term (current) use of insulin; Z79.899 Other long term (current) drug therapy; Z79.891 Long term (current) use of opiate analgesic; Z86.73 Personal history of transient ischemic attack (TIA), and cerebral infarction without residual deficits; Z87.442 Personal history of urinary calculi; Z85.46 Personal history of malignant neoplasm of prostate; Z90.79 Acquired absence of other genital organ(s); Z82.49 Family history of ischemic heart disease and other diseases of the circulatory system; Z82.3 Family history of stroke; Z91.11 Patient's noncompliance with dietary regimen; Z91.19 Patient's noncompliance with other medical treatment and regimen
CPT/HCPCS: 36415; 80048; 80053; 80202; 81003; 82565; 83605; 85025; 85610; 85730; 86140; 87040; 87070; 87075; 87077; 87186; 87205; 93005; 96365; 96368; 99284

== ENCOUNTER → 2021-07-12 | Outpatient (CLI) | payer MEDICARE, OTHER ==
[2021-07-12 11:43] LABS: African American GFR (CKD) >90 (>60 ml/min/1.73 sqM); Blood Urea Nitrogen 17 mg/dL (9-20); Non-African American GFR(CKD) >90 (>60 ml/min/1.73 sqM)
--- NOTE | 2021-07-12 15:21 | NM ---
EXAMINATION TYPE: NM bone scan whole body DATE OF EXAM: 07/12/2021 COMPARISON: NONE HISTORY: C51 Prostate ca Delayed whole-body scanning was performed following the injection of 23.4 mCi Tc 99m MDP. Images acq uired 3 hours post injection. FINDINGS: No intense uptake to suggest metastatic disease. There is degenerative uptake about the shoulders, st ernoclavicular joints, hips and knees as well as the right ankle. Below the knee amputation left lowe r extremity. IMPRESSION: No scintigraphic evidence to suggest metastatic disease at this time.
--- NOTE | 2021-07-12 15:30 | CT ---
EXAMINATION TYPE: CT ChestAbdPelvis w con DATE OF EXAM: 07/12/2021 COMPARISON: 07/19/2017 HISTORY: 65-year-old male C5 1, Prostate cancer. TECHNIQUE: Contiguous axial scanning of the chest, abdomen, and pelvis performed with IV Contrast, pa tient injected with 100 mL of Isovue M300. Delayed images through the kidneys were obtained. Coronal/ sagittal reconstructions performed. CT DLP: 2717.4 mGycm Automated exposure control for dose reduction was used. FINDINGS: CHEST: Heart normal size without pericardial effusion. Three-vessel coronary artery calcifications are prese nt and there are marker for coronary artery disease. Mild aneurysm aortic root at 4.3 cm and ascending aorta 4.1 cm, not significantly changed. Mildly ane urysmal upper descending thoracic aorta at 3.7 cm, also unchanged. Conventional vessel branching alethea davion with scattered mild atelectatic calcifications. No thoracic lymphadenopathy by CT size criteria. Mildly enlarged caliber to the main right and left pulmonary arteries measuring up to 3.0 cm suggesti ng underlying pulmonary artery hypertension. Minimal scattered emphysematous cysts. No consolidation or pleural effusion. ABDOMEN: Liver mildly enlarged at 18.8 cm. Tiny 8 mm hypodensity right liver lobe, axial image 61 is unchanged suggesting a benign cyst. Gallbladder mildly hydropic measuring 5.1 cm wide but without any wall thickening or surrounding infl ammation. Probably due to fasting state. Portal venous system is patent. No biliary ductal dilatation . Adrenal glands, spleen with hilar splenule, and pancreas show no gross abnormal body. 2 nonobstructive left renal calculi measuring up to 1.1 cm. Numerous bilateral renal cysts are redemo nstrated, largest is bilobed in the anterior mid right kidney measuring 4.6 x 3.1 cm. Some renal dacia ical thinning suggests chronic medical renal disease. Moderate atherosclerotic calcifications infrarenal abdominal aorta without aneurysm. No dilated small bowel, free fluid, or free air. Normal appendix. Mild generalized stool burden. Mildly redundant sigmoid colon. No pericolonic inflam matory change. Borderline enlarged 1.0 cm aortocaval lymph node at the level of the kidneys is either stable or smal ler. Mildly enlarged 1.2 cm left external iliac chain lymph node is unchanged, axial image 110. Scattered surgical clips along the pelvic sidewalls. No new or enlarging pelvic or abdominal lymphadenopathy compared to 07/19/2017. PELVIS: Mild circumferential bladder wall thickening is nonspecific. Multiple surgical clips at the prostatec stella bed. No abnormal fluid collection or pelvis. BONES: Mild degenerative change at the hips. L3 fatty matrix hemangioma. A lumbarized S1 with advanced degen erative disc disease L5-S1. Mild endplate spondylosis mid to lower thoracic spine. No suspicious scle rotic lesion is identified. IMPRESSION: 1. STATUS POST PROSTATECTOMY AND BILATERAL PELVIC LYMPH NODE DISSECTION. 2. A BORDERLINE ENLARGED 1.0 CM AORTOCAVAL LYMPH NODE IN THE RETROPERITONEUM IS STABLE TO SMALLER COM PARED TO 07/19/2017. SIMILARLY, A MILDLY ENLARGED 1.2 CM LEFT EXTERNAL ILIAC CHAIN LYMPH NODE IS STABLE . NO NEW OR ENLARGING LYMPH NODES TO SUGGEST RECURRENT DISEASE. 3. INCIDENTAL: MILD ANEURYSM ASCENDING AORTA AT 4.3 CM, POSSIBLE UNDERLYING PULMONARY ARTERIAL HYPER TENSION, MILD HEPATOMEGALY (18.8 CM), AND A COUPLE NONOBSTRUCTIVE RIGHT RENAL CALCULI MEASURING UP TO 1.1 CM.
== END ==
LOC: RADNMMAIN 10:57
PROVIDERS: ATTEND Internal Medicine Hematology & Oncology
DX: C61 Malignant neoplasm of prostate (principal); I71.4 Abdominal aortic aneurysm, without rupture; J43.9 Emphysema, unspecified; I25.10 Atherosclerotic heart disease of native coronary artery without angina pectoris; R59.9 Enlarged lymph nodes, unspecified; R16.0 Hepatomegaly, not elsewhere classified; N20.0 Calculus of kidney; I27.20 Pulmonary hypertension, unspecified
CPT/HCPCS: 82565; 84520; 71260; 74177; 36415; 78306; A9503; Q9967 ×2

== ENCOUNTER 2023-10-04 14:56 | Inpatient (IN) | payer MEDICARE, OTHER ==
--- NOTE | 2023-10-04 15:38 | ED ---
General Adult HPI - General Chief complaint: Weakness Stated complaint: WEAKNESS Time Seen by Provider: 10/04/23 15:11 Source: patient, EMS Mode of arrival: EMS Limitations: no limitations - History of Present Illness Initial comments: Dictation was produced using [employer] dictation software. please excuse any grammatical, word or spelling errors. Chief Complaint: 67-year-old male presents with chronic weakness History of Present Illness: Is a 67-year-old male here has history of left lower extremity amputation. He also has history of diabetes, A. fib hypertension. Anticoagulation medications. Patient has been weak for several months. Today his weakness was much more apparent since he had to be taken to the doctor's office for urinalysis and refer him to receive pain medications. Apparently patient needed significant assistance when brought to his appointment. It was then decided that patient was brought to the emergency department. Patient usually is able to transfer from bed to wheelchair however is having some di fficulty more than usual. Typically at home is at bed rest. Patient has no other complaints at this time. The ROS documented in this emergency department record has been reviewed and confirmed by me. Those systems with pertinent positive or negative responses have been documented in the HPI. All other systems are other negative and/or noncontributory. - Related Data Home Medications Medication Instructions Recorded Confirmed amLODIPine [Norvasc] 10 mg PO HS 11/07/17 10/04/23 hydrALAZINE HCL [Apresoline] 50 mg PO BID 11/07/17 10/04/23 Atorvastatin [Lipitor] 20 mg PO HS 01/16/19 10/04/23 Pantoprazole [Protonix] 40 mg PO DAILY 05/15/19 10/04/23 Apixaban [Eliquis] 5 mg PO BID 10/04/23 10/04/23 Escitalopram [Lexapro] 20 mg PO DAILY 10/04/23 10/04/23 Gabapentin 600 mg PO QID 10/04/23 10/04/23 Insulin Aspart [NovoLOG Flexpen] 20 units SQ TID-W/MEALS 10/04/23 10/04/23 Insulin Glargine,Hum.rec.anlog 10 units SQ HS 10/04/23 10/04/23 [Lantus Solostar Pen] Losartan [Cozaar] 25 mg PO DAILY 10/04/23 10/04/23 Meloxicam [Mobic] 15 mg PO DAILY PRN 10/04/23 10/04/23 Potassium Chloride ER [K-Dur 20] 20 meq PO DAILY 10/04/23 10/04/23 oxyCODONE HCL [oxyCODONE HCL (IR)] 30 mg PO TID PRN 10/04/23 10/04/23 Allergies Allergy/AdvReac Type Severity Reaction Status Date / Time No Known Allergies Allergy Verified 10/04/23 19:25 Review of Systems ROS Statement: Those systems with pertinent positive or pertinent negative responses have been documented in the HPI. ROS Other: All systems not noted in ROS Statement are negative. Past Medical History Past Medical History: Cancer, CVA/TIA, Diabetes Mellitus, GERD/Reflux, Hypertension, Liver Disease, Myocardial Infarction (DC), Osteoarthritis (OA) Additional Past Medical History / Comment(s): stroke 2 1/2 years-no residual effects, neuropathy both feet, hx. prostate cancer 2003, hx. hepatitis B 2002? Last Myocardial Infarction Date:: 2008 History of Any Multi-Drug Resistant Organisms: CRE Date of last positivie culture/infection: 05/16/19 MDRO Source:: TISSUE FOOT Past Surgical History: Heart Catheterization, Orthopedic Surgery, Prostate Surgery Additional Past Surgical History / Comment(s): prostatectomy, surg. on 1st-2nd toe left foot, surg. for kidney stones, right hand surg. left foot 2nd toe amputation 10/2017 Past Anesthesia/Blood Transfusion Reactions: No Reported Reaction Past Psychological History: No Psychological Hx Reported, Depression Smoking Status: Current every day smoker Past Alcohol Use History: Occasional Past Drug Use History: None Reported - Past Family History Mother Family Medical History: Coronary Artery Disease (CAD) Father Family Medical History: CVA/TIA General Exam - General Exam Comments Initial Comments: PHYSICAL EXAM: General Impression: Alert and oriented x3, not in acute distress HEENT: Normocephalic atraumatic, extra-ocular movements intact, pupils equal and reactive to light bilaterally, mucous membranes moist. Cardiovascular: Heart regular rate and rhythm Chest: Able to complete full sentences, no retractions, no tachypnea Abdomen: abdomen soft, non-tender, non-distended, no organomegaly Musculoskeletal: Left lower extremity amputation Motor: no focal deficits noted Neurological: CN II-XII grossly intact, no focal motor or sensory deficits noted Skin: Intact with no visualized rashes Psych: Normal affect and mood Limitations: no limitations Course Vital Signs 10/04/23 10/04/23 15:07 18:06 Temperature 98.7 F Pulse Rate 62 70 Respiratory 18 18 Rate Blood Pressure 115/82 127/82 O2 Sat by Pulse 95 98 Oximetry EKG Findings - EKG Comments: EKG Findings:: My EKG interpretation: Ventricular rate 63, A. fib, QRS 106, QTC 413. No CO prolongation, no QTC prolongation, no ST or T-wave changes noted. Patient has a history of A. fib. Compared to 05/15/2019 with no changes. Overall, this EKG is unremarkable Medical Decision Making - Medical Decision Making Was pt. sent in by a medical professional or institution (, PA, MASTER PLUMBER, urgent care, hospital, or skilled nursing...) When possible be specific @ -No Did you speak to anyone other than the patient for history (EMS, parent, family, police, friend...)? What history was obtained from this source @ -No Did you review nursing and triage notes (agree or disagree)? Why? @ -I reviewed and agree with nursing and triage notes Were old charts reviewed (outside hosp., previous admission, EMS record, old EKG, old radiological studies, urgent care reports/EKG's, skilled nursing records)? Report findings @ -No old charts were reviewed Differential Diagnosis (chest pain, altered mental status, abdominal pain women, abdominal pain men, vaginal bleeding, musculoskeletal, weakness, fever, dyspnea, syncope, headache, dizziness, GI bleed, back pain, seizure, CVA, palpatations, mental health)? @ -Differential Weakness: Hypoglycemia, shock, sepsis, hyponatremia, anemia, infection, DC, ETOH, adverse medicine reaction, overdose, stroke, this is not meant to be an all-inclusive list. EKG interpreted by me (3pts min.). @ -None done X-rays interpreted by me (1pt min.). @ -None done CT interpreted by me (1pt min.). @ -None done U/S interpreted by me (1pt. min.). @ -None done What testing was considered but not performed or refused? (CT, X-rays, U/S, labs)? Why? @ -None What meds were considered but not given or refused? Why? @ -None Did you discuss the management of the patient with other professionals (professionals i.e. DrBang, PA, MASTER PLUMBER, lab, RT, psych nurse, social services assistant, filler block inserter remover, teacher, protection officer, caseworker)? Give summary @ -Discussed with hospitalist for admission Was smoking cessation discussed for >3mins.? @ -No Was critical care preformed (if so, how long)? @ -No Were there social determinants of health that impacted care today? How? (Homelessness, low income, unemployed, alcoholism, drug addiction, transportation, low edu. Level, literacy, decrease access to med. care, long-term, rehab)? @ -No Was there de-escalation of care discussed even if they declined (Discuss DNR or withdrawal of care, Hospice)? DNR status @ -No What co-morbidities impacted this encounter? (DM, HTN, Smoking, COPD, CAD, Cancer, CVA, ARF, Chemo, Hep., AIDS, mental health diagnosis, sleep apnea, morbid obesity)? @ -None Was patient admitted / discharged? Hospital course, mention meds given and route, prescriptions, significant lab abnormalities, going to OR and other pertinent info. @ -67-year-old male sent in by primary care physician for her generalized weakness and frequent falls. Vital signs are stable. Patient states he's been weak for the last several months. He is told to come here according to the daughters at the bedside that he should be admitted so that he can be transitioned to more skilled nursing. Labs unremarkable. He does have a mild lactic acidosis 3.0. CT scans negative rate patient initially wanted to be discharged over family convinced him to be admitted. Undiagnosed new problem with uncertain prognosis? @ -No Drug Therapy requiring intensive monitoring for toxicity (Heparin, Nitro, Insulin, Cardizem)? @ -No Were any procedures done? @ -No Diagnosis/symptom? Acute, or Chronic, or Acute on Chronic? Uncomplicated (without systemic symptoms) or Complicated (systemic symptoms)? @ -Gravely Disabled Side effects of treatment? @ -No Exacerbation, Progression, or Severe Exacerbation? @ -No Poses a threat to life or bodily function? How? (Chest pain, USA, DC, pneumonia, PE, COPD, DKA, ARF, appy, cholecystitis, CVA, Diverticulitis, Homicidal, Suicidal, threat to staff... and all critical care pts) @ -No - Lab Data Result diagrams: 10/04/23 15:47 10/04/23 15:47 Lab Results 10/04/23 10/04/23 10/04/23 Range/Units 15:47 15:47 15:47 WBC 9.4 (3.8-10.6) k/uL RBC 5.75 (4.30-5.90) m/uL Hgb 17.1 (13.0-17.5) gm/dL Hct 50.7 (39.0-53.0) % MCV 88.2 (80.0-100.0) fL MCH 29.8 (25.0-35.0) pg MCHC 33.8 (31.0-37.0) g/dL RDW 15.2 (11.5-15.5) % Plt Count 216 (150-450) k/uL MPV 8.4 Neutrophils % 66 % Lymphocytes % 23 % Monocytes % 8 % Eosinophils % 1 % Basophils % 0 % Neutrophils # 6.2 (1.3-7.7) k/uL Lymphocytes # 2.2 (1.0-4.8) k/uL Monocytes # 0.8 (0-1.0) k/uL Eosinophils # 0.1 (0-0.7) k/uL Basophils # 0.0 (0-0.2) k/uL PT 10.2 (10.0-12.5) sec INR 0.9 (<1.2) APTT 25.9 (22.0-30.0) sec Sodium 137 (137-145) mmol/L Potassium 4.3 (3.5-5.1) mmol/L Chloride 101 (98-107) mmol/L Carbon Dioxide 26 (22-30) mmol/L Anion Gap 10 mmol/L BUN 18 (9-20) mg/dL Creatinine 0.65 L (0.66-1.25) mg/dL Est GFR (CKD-EPI)AfAm >90 (>60 ml/min/1.73 sqM) Est GFR (CKD-EPI)NonAf >90 (>60 ml/min/1.73 sqM) Glucose 109 H (74-99) mg/dL Lactic Ac Sepsis Rflx Plasma Lactic Acid Kaushik (0.7-2.0) mmol/L Calcium 9.5 (8.4-10.2) mg/dL Magnesium 1.9 (1.6-2.3) mg/dL 10/04/23 10/04/23 Range/Units 15:47 16:33 WBC (3.8-10.6) k/uL RBC (4.30-5.90) m/uL Hgb (13.0-17.5) gm/dL Hct (39.0-53.0) % MCV (80.0-100.0) fL MCH (25.0-35.0) pg MCHC (31.0-37.0) g/dL RDW (11.5-15.5) % Plt Count (150-450) k/uL MPV Neutrophils % % Lymphocytes % % Monocytes % % Eosinophils % % Basophils % % Neutrophils # (1.3-7.7) k/uL Lymphocytes # (1.0-4.8) k/uL Monocytes # (0-1.0) k/uL Eosinophils # (0-0.7) k/uL Basophils # (0-0.2) k/uL PT (10.0-12.5) sec INR (<1.2) APTT (22.0-30.0) sec Sodium (137-145) mmol/L Potassium (3.5-5.1) mmol/L Chloride (98-107) mmol/L Carbon Dioxide (22-30) mmol/L Anion Gap mmol/L BUN (9-20) mg/dL Creatinine (0.66-1.25) mg/dL Est GFR (CKD-EPI)AfAm (>60 ml/min/1.73 sqM) Est GFR (CKD-EPI)NonAf (>60 ml/min/1.73 sqM) Glucose (74-99) mg/dL Lactic Ac Sepsis Rflx Y Plasma Lactic Acid Kaushik 3.0 H* (0.7-2.0) mmol/L Calcium (8.4-10.2) mg/dL Magnesium (1.6-2.3) mg/dL Disposition Clinical Impression: Gravely disabled Disposition: ADMITTED IP TO THIS HOSP Condition: Fair Referrals: [facility] [NON-STAFF] - [facility] Visiting Nurse, [NON-STAFF] - Grayson Hoff MD [Primary Care Provider] - 1-2 days
[2023-10-04 16:02] LABS: Basophils % (A) 0 %; Eosinophils # (A) 0.1 k/uL (0-0.7); Eosinophils % (A) 1 %; HCT 50.7 % (39.0-53.0); HGB 17.1 gm/dL (13.0-17.5); Lymphocytes # (A) 2.2 k/uL (1.0-4.8); Lymphocytes % (A) 23 %; MCH 29.8 pg (25.0-35.0); MCHC 33.8 g/dL (31.0-37.0); MCV 88.2 fL (80.0-100.0); Mean Platelet Volume 8.4; Monocytes # (A) 0.8 k/uL (0-1.0); Monocytes % (A) 8 %; Neutrophils # (A) 6.2 k/uL (1.3-7.7); Neutrophils % (A) 66 %; Platelet Count 216 k/uL (150-450); RBC 5.75 m/uL (4.30-5.90); RDW 15.2 % (11.5-15.5); WBC 9.4 k/uL (3.8-10.6)
[2023-10-04 16:12] LABS: INR 0.9 (<1.2); Partial Thromboplastin Time 25.9 sec (22.0-30.0); Prothrombin Time 10.2 sec (10.0-12.5)
[2023-10-04 16:16] LABS: African American GFR (CKD) >90 (>60 ml/min/1.73 sqM); Anion Gap 10 mmol/L; Blood Urea Nitrogen 18 mg/dL (9-20); Calcium 9.5 mg/dL (8.4-10.2); Carbon Dioxide 26 mmol/L (22-30); Chloride 101 mmol/L (98-107); Glucose 109 mg/dL (74-99); Magnesium 1.9 mg/dL (1.6-2.3); Non-African American GFR(CKD) >90 (>60 ml/min/1.73 sqM); Potassium 4.3 mmol/L (3.5-5.1); Sodium 137 mmol/L (137-145)
[2023-10-04] MEDS ORDERED: HYDROcodone/APAP 5-325MG 1 EACH TAB PO STA (18:13)
--- NOTE | 2023-10-04 19:29 | CT ---
EXAMINATION TYPE: CT brain wo con CT DLP: 1125.4 mGycm, Automated exposure control for dose reduction was used. DATE OF EXAM: 10/04/2023 6:09 PM COMPARISON: None. CLINICAL INDICATION:Male, 67 years old with history of fall, no head trauma, on coumadin, weakness, f all TECHNIQUE: Brain: Axial CT images of the brain were obtained with coronal and sagittal reformats created and rev iewed. Contrast used: None. Oral contrast used: None. FINDINGS: Brain: Extra-axial spaces: No abnormal extra-axial fluid collections. Ventricular system: Appear dilated in proportion to cerebral atrophy. Cerebral parenchyma: No acute intraparenchymal hemorrhage or mass effect. Area of hypoattenuation o n the right involving the posterior right frontal and parietal lobes, involving the white matter and cortex, likely remote MCA territory infarct. Mild/moderate generalized brain atrophy. Scattered mild/ moderate hypoattenuating areas are seen within the cerebral white matter, nonspecific but most often seen with chronic microvascular ischemic change. Cerebellum: No acute abnormality. Mass effect: No evidence of midline shift. Intracranial vasculature: Atherosclerotic calcifications of the larger arteries near the skull base. Soft tissues: Normal. Calvarium/osseous structures: No acute abnormality. Paranasal sinuses and mastoid air cells: Clear Visualized orbits: Orbital contents appear grossly intact. MRI is more sensitive for detecting acute processes such as infarct, and may be considered if clinica lly warranted. IMPRESSION: No acute intracranial CT abnormality. Atrophy and chronic microvascular ischemic changes. Remote infarct right MCA territory.
[2023-10-04] MEDS ORDERED: NALOXONE 0.4 MG/ML 1 ML VIAL IV PRN (19:51)
[2023-10-04] MEDS: GABAPENTIN 300 MG CAP PO SCH (20:49)
[2023-10-04] MEDS: amLODIPine 10 MG TAB PO SCH (20:50)
[2023-10-04] MEDS: APIXABAN 5 MG TAB PO SCH (20:50)
[2023-10-04] MEDS: ATORVASTATIN 20 MG TAB PO SCH (20:50)
[2023-10-04] MEDS: hydrALAZINE HCL 50 MG TAB PO SCH (20:50)
[2023-10-04] MEDS: INSULIN DETEMIR (LEVEMIR) 100 UNIT/ML SYR SQ SCH (21:05)
[2023-10-04 21:15] LABS: Glucose,Whole Blood 217 mg/dL (70-110)
[2023-10-05 07:50] LABS: Glucose,Whole Blood 113 mg/dL (70-110)
[2023-10-05] MEDS: PANTOPRAZOLE 40 MG TABLET PO SCH (09:20)
[2023-10-05] MEDS: GABAPENTIN 300 MG CAP PO SCH ×4 (09:20→20:53)
[2023-10-05] MEDS: hydrALAZINE HCL 50 MG TAB PO SCH ×2 (09:20→20:36)
[2023-10-05] MEDS: INSULIN ASPART (NovoLOG) 100 UNIT/ML VIAL SQ SCH ×4 (09:20→20:54)
[2023-10-05] MEDS: POTASSIUM CHLORIDE ER 20 MEQ TAB.ER PO SCH (09:21)
[2023-10-05] MEDS: APIXABAN 5 MG TAB PO SCH ×2 (09:21→20:36)
[2023-10-05] MEDS: LOSARTAN 25 MG TAB PO SCH (09:21)
[2023-10-05] MEDS: ESCITALOPRAM 20 MG TAB PO SCH (11:39)
[2023-10-05 11:59] LABS: Glucose,Whole Blood 72 mg/dL (70-110)
--- NOTE | 2023-10-05 14:16 | P.HPIM ---
History of Present Illness H&P Date: 10/05/23 Chief Complaint: Left-sided weakness, difficulty with the use ofProsthesis for below kne History and physical Date of service 10/05/[address] Hoff. Chief complaint: Multiple complain with underlying disability. He stated that he had left sided weakness in left upper extremities and left lower extremities which has been new to him in association with the use his prosthesis with a history of below knee amputation on the left side. Patient also had other multiple problem has been ignored because of underlying inability to be taking care of by his daughters or taken him to the DrBang's or to the hospital until he reached his maximum of depression and anger. History of present illness: 67 years old white male he has no home and he has been staying with one daughter to another he has been developed finding a place to take care of him. Also he has underlying multiple medical problem that he could not take care of it himself as well. He felt the weakness on his left side upper and lower, and he had history of stroke in the past and he was seen in the ER at [facility] at that time and lifted by helicopter to [facility] stroke unit where he was treated and given injection to his old stroke subsequently discharged. Patient also had left lower extremities diabetic infection and osteomyelitis and peripheral vascular disease resulted to be amputated below knee by Dr. Lagunas vascular surgeon at [facility] at that time, He had also history of coronary artery disease and myocardial infarction in the past added to atrial fibrillation which she currently he is taken novel anticoagulant. Patient has history of prostatic cancer underwent total resection surgically however it is recurrent with metastatic to the lymph node and subsequently he was seen in [facility] at the time treated with injection followed by Dr. Stein oncology hematology who was giving him injection every 6 months however patient was have no ability to continue the care because of his social and physical disability resulted no compliant. With the care Patient had significant pain problem chronically regarding his low back pain in the joint pain, has been taking care of of pain by Dr. Marie who is a retired and currently followed by Dr. Rodríguez office nurse of dictation however his pain has been severely progressed. With the physical inability he doesn't know if he had the metastasis is has been a current or not. Past medical history: Diabetes mellitus type 2 uncontrolled currently on insulin to scale and long- acting insulin as well at home and he has been not compliant with monitoring his blood sugar as he moving from one another and losing his machine and the strips. History of hypertension was hypertensive heart disease History of coronary artery disease with MS and atrial fibrillation. MS 2008 cardiac cath Prostate cancer status post complete resection surgically with the metastasis and the recurrence. History of stroke. History of left below knee amputation secondary to infection and peripheral vascular disease History of diabetic neuropathy bilateral. History of depression and anxiety and feeling to thrive. History of COPD ex-smoker and used to be smoking for intermittently for 20 years. History of hepatitis be 2002 History of GERD disease ALLERGIES unknown Family history added to her daughter. Retired Review of system: Neuropsychiatry history of strokes in the past, depression, anxiety, weeping eyes Cardiovascular, atrial fib, MS, peripheral vascular disease. Pulmonary: COPD ex-smoker. Genitourinary: Prostate cancer treated surgically with complete excision and the recurrence with metastasis to lymph node Endocrine hyperlipidemia mixed type. Diabetes mellitus type 2. Musculoskeletal: Left below knee amputation with phantom pain and pain in the both hips and both knees. And low back pain and despite the pain medication still complaining of pain Rest of the 14 point bullet has been reviewed and no significance Physical exam: Patient is conscious alert oriented 3 feel down with depression and his condition of medical illness On admission temperature 98.7, pulse 62, respiratory rate 18/m He had atrial fib. The patient had hypoglycemia on the floor with blood sugar 72 with symptomatic insulin has been adjusted Head was normocephalic and atraumatic pupil was equal reactive conjunctiva was pink sclera was nonicteric extraocular movements muscle movement is intact. CT of the brain was recommended MRI the report on the records and changes in the frontal and parietal will be consulting the neurology especially with the event of weakness in the right upper and lower extremities Oropharynx natural teeth, normal hearing, Neck was supple no JVD no thyromegaly no lymphadenopathy Chest increased anteroposterior diameter with hyperinflation of the lung no wheezing basilar rhonchi's Abdomen protuberant and positive bowel sound is some tenderness in the lower abdomen close to the bilateral. Extremities: Left lower extremities below knee amputation with phantom pain on the stump as well as pain on the hip joint on the left and the right his knee on the right than the left with apparent arthritis and difficulty elevated a use of his prosthesis. He had history of neuropathy with numbness and tingling of both feet prior to the amputation of the left lower extremities. Neurology: He had weakness in the left upper and lower extremities and difficulty of movement and frequent fall. Assessment: #1 patient failure to thrive with multiple medical problem #2 diabetes mellitus type 2 complicated with neuropathy uncontrolled with the hypoglycemia on the floor #3 surgical total prostatectomy with the recurrence and metastasis to lymph node #4 atrial fibrillation and coronary artery disease and MS in the past. #5 left below knee amputation with phantom pain #6 chronic pain syndrome not improving #7 hyper lipidemia #8 hypertension was hypertensive heart disease. Advanced osteoarthritis of the lumbosacral spine and right and left hip and left and the right knee Plan: #1 we'll obtain social welfare research worker vocational case manager, occupational rehabilitation, physical therapy, pain consult as well #2 start IV with D5 0.9 normal saline, obtaining PSA, obtaining hemoglobin A1c, obtaining EKG, obtaining echocardiogram. #3 adjusting his medication for diabetes mellitus avoid hypoglycemia. #4 depend on above results for further investigation and further consultation depend on the results of the finding. #5 obtain x-ray of the both hips and both knees as well. #6 if the PSA is elevated probably will need to consultation with Dr. Stein the hematology oncology for evaluation and treatment as well #7 obtaining lipid profile in a.m. Past Medical History Past Medical History: Atrial Fibrillation, Cancer, CVA/TIA, Diabetes Mellitus, GERD/Reflux, Hypertension, Liver Disease, Myocardial Infarction (MS), Osteoarthritis (OA), Prostate Disorder Additional Past Medical History / Comment(s): stroke 2 1/2 years-no residual effects, neuropathy both feet, hx. prostate cancer 2003, hx. hepatitis B 2002? Last Myocardial Infarction Date:: 2008 History of Any Multi-Drug Resistant Organisms: CRE Date of last positivie culture/infection: 05/16/19 MDRO Source:: TISSUE FOOT Past Surgical History: Heart Catheterization, Orthopedic Surgery, Prostate Surgery Additional Past Surgical History / Comment(s): prostatectomy, surg. on 1st-2nd toe left foot, surg. for kidney stones, right hand surg. left foot 2nd toe amputation 10/2017 Past Anesthesia/Blood Transfusion Reactions: No Reported Reaction Past Psychological History: No Psychological Hx Reported, Depression Smoking Status: Current every day smoker Past Alcohol Use History: Occasional Additional Past Alcohol Use History / Comment(s): has smoked on and off over the years. currently smoking a pack a day since [place] time Past Drug Use History: None Reported - Past Family History Mother Family Medical History: Coronary Artery Disease (CAD) Father Family Medical History: CVA/TIA Medications and Allergies Home Medications Medication Instructions Recorded Confirmed Type amLODIPine [Norvasc] 10 mg PO HS 11/07/17 10/04/23 History hydrALAZINE HCL [Apresoline] 50 mg PO BID 11/07/17 10/04/23 History Atorvastatin [Lipitor] 20 mg PO HS 01/16/19 10/04/23 History Pantoprazole [Protonix] 40 mg PO DAILY 05/15/19 10/04/23 History Apixaban [Eliquis] 5 mg PO BID 10/04/23 10/04/23 History Escitalopram [Lexapro] 20 mg PO DAILY 10/04/23 10/04/23 History Gabapentin 600 mg PO QID 10/04/23 10/04/23 History Insulin Aspart [NovoLOG Flexpen] 20 units SQ TID-W/MEALS 10/04/23 10/04/23 History Insulin Glargine,Hum.rec.anlog 10 units SQ HS 10/04/23 10/04/23 History [Lantus Solostar Pen] Losartan [Cozaar] 25 mg PO DAILY 10/04/23 10/04/23 History Meloxicam [Mobic] 15 mg PO DAILY PRN 10/04/23 10/04/23 History Potassium Chloride ER [K-Dur 20] 20 meq PO DAILY 10/04/23 10/04/23 History oxyCODONE HCL [oxyCODONE HCL (IR)] 30 mg PO TID PRN 10/04/23 10/04/23 History Allergies Allergy/AdvReac Type Severity Reaction Status Date / Time No Known Allergies Allergy Verified 10/04/23 19:25 Physical Exam Vitals: Vital Signs Temp Pulse Pulse Resp BP BP Pulse Ox 10/05/23 11:55 80 18 138/77 96 10/05/23 08:00 99 F 69 16 134/83 99 10/05/23 02:00 97.7 F 69 16 133/71 98 10/04/23 21:50 80 18 135/89 96 10/04/23 20:53 81 18 143/94 95 10/04/23 20:00 69 18 120/78 97 10/04/23 18:06 70 18 127/82 98 10/04/23 15:07 98.7 F 62 18 115/82 95 Intake and Output 10/04/23 10/05/23 10/05/23 22:59 06:59 14:59 Intake Total 590 Balance 590 Intake: Oral 590 Other: Voiding Method Toilet Toilet # Voids 2 Weight 108.862 kg Results CBC & Chem 7: 10/04/23 15:47 10/04/23 15:47 Labs: Abnormal Lab Results - Last 24 Hours (Table) 10/04/23 10/04/23 10/04/23 Range/Units 15:47 15:47 21:06 Creatinine 0.65 L (0.66-1.25) mg/dL Glucose 109 H (74-99) mg/dL POC Glucose (mg/dL) 217 H (70-110) mg/dL Plasma Lactic Acid Kaushik 3.0 H* (0.7-2.0) mmol/L 10/05/23 Range/Units 07:38 Creatinine (0.66-1.25) mg/dL Glucose (74-99) mg/dL POC Glucose (mg/dL) 113 H (70-110) mg/dL Plasma Lactic Acid Kaushik (0.7-2.0) mmol/L Thrombosis Risk Factor Assmnt - Choose All That Apply Any of the Below Risk Factors Present?: No Other Risk Factors: Yes Each Risk Factor Represents 2 Points: Age 61-74 years Other congenital or acquired thrombophilia - If yes, enter type in comment: No Thrombosis Risk Factor Assessment Total Risk Factor Score: 2 Thrombosis Risk Factor Assessment Level: Low Risk
--- NOTE | 2023-10-05 16:37 | CA ---
Transthoracic Echo Report Name: Moi Cisneros Age: 67 Gender: M : 1955 Exam Date: 10/05/2023 14:47 Exam Location: [place] [facility] Ht (in): 75 Wt (lb): 240 Ordering Physician: Grayson Hoff MD Attending/Referring Phys: Electric Blanket Wirer Josy Mcnally [facility] Procedure CPT: Indications: atrial fib .htnurgency,tia Cardiac Hx: Technical Quality: Fair Contrast 1: Total Dose (mL): Contrast 2: Total Dose (mL): MEASUREMENTS (Male / Female) Normal Values 2D ECHO LV Diastolic Diameter PLAX 4.1 cm 4.2 - 5.9 / 3.9 - 5.3 cm LV Systolic Diameter PLAX 2.6 cm IVS Diastolic Thickness 1.3 cm 0.6 - 1.0 / 0.6 - 0.9 cm LVPW Diastolic Thickness 1.4 cm 0.6 - 1.0 / 0.6 - 0.9 cm LV Relative Wall Thickness 0.7 LVOT Diameter 2.0 cm Aortic Root Diameter 4.0 cm Ascending Aorta Diameter 3.9 cm M-MODE Aortic Root Diameter MM 3.7 cm LA Systolic Diameter MM 4.2 cm LA Ao Ratio MM 1.1 AV Cusp Separation MM 1.8 cm DOPPLER AV Peak Velocity 149.6 cm/s AV Peak Gradient 9.0 mmHg AV Mean Velocity 99.0 cm/s AV Mean Gradient 4.5 mmHg AV Velocity Time Integral 27.9 cm LVOT Peak Velocity 100.2 cm/s LVOT Peak Gradient 4.0 mmHg LVOT Velocity Time Integral 24.4 cm LVOT Stroke Volume 75.2 cm??? LVOT Stroke Volume Index 31.7 ml/m??? LVOT Cardiac Index 1925.8 cm???/min???m??? AV Area Cont Eq vti 2.7 cm??? AV Area Cont Eq pk 2.1 cm??? Mitral E Point Velocity 77.4 cm/s MV Deceleration Time 155.3 ms LV E' Lateral Velocity 11.9 cm/s Mitral E to LV E' Lateral Ratio 6.5 LV E' Septal Velocity 8.4 cm/s Mitral E to LV E' Septal Ratio 9.2 Right Atrial Pressure 8.0 mmHg FINDINGS Left Ventricle Moderately increased left ventricular wall thickness. Left ventricular cavity size normal. Normal left ventricular systolic function with no obvious regional wall motion abnormalities. Left ventricular ejection fraction is estimated at 55-60%. Right Ventricle Moderate right ventricular dilatation. Unable to estimate the right ventricular systolic pressure. Right Atrium Severe right atrial dilatation. Left Atrium Severe left atrial dilatation. Mitral Valve Mitral annular calcification. Trace mitral regurgitation. Aortic Valve Trileaflet aortic valve. Aortic valve sclerosis. Trace aortic regurgitation. Tricuspid Valve Structurally normal tricuspid valve. No tricuspid regurgitation. Pulmonic Valve Pulmonic valve not well visualized. Pericardium Minimal pericardial effusion (normal variant). Aorta Mild aortic dilatation at the level of the sinuses of valsalva (root). Mildly dilated proximal ascending aorta (tube). CONCLUSIONS LVH with preserved systolic function Right ventricular enlargement Biatrial enlargement Previewed by: Dr. Aristides Brown MD (Electronically Signed) Final Date: 05 October 2023 16:36
[2023-10-05] MEDS ORDERED: DEXTROSE 5%-0.9% NACL 1,000 ML IV SCH (17:00)
[2023-10-05 17:07] LABS: Glucose,Whole Blood 240 mg/dL (70-110)
--- NOTE | 2023-10-05 17:23 | XR ---
EXAMINATION TYPE: XR chest 2V DATE OF EXAM: 10/05/2023 COMPARISON: NONE HISTORY: Left chest pain TECHNIQUE: Frontal and lateral views of the chest are obtained. FINDINGS: The lungs are clear of consolidative or interstitial opacity. There is no pleural effusion, pleural thickening or pneumothorax. The heart and pulmonary vasculature are normal. The osseous structures are intact IMPRESSION: No acute cardiopulmonary process.
--- NOTE | 2023-10-05 17:26 | XR ---
Bilateral hips. HISTORY: Severe hip pain COMPARISON: None. TECHNIQUE: 4 views of the hips were obtained. FINDINGS: The right hip is unremarkable without fracture or focal intraosseous abnormality. The joint spaces we ll-maintained and there is no significant degenerative arthritis. There is no left hip fracture or focal intraosseous abnormality. There is mild narrowing of the joint space indicating mild osteoarthritic change. There are diffuse arteriovascular calcifications bilaterally. IMPRESSION: 1. No evidence of acute trauma to the hips. 2. Mild osteoarthritic change of the left hip. 3. No significant abnormality of the right hip..
--- NOTE | 2023-10-05 17:29 | XR ---
Bilateral knees. HISTORY: Pain following fall. COMPARISON: None. TECHNIQUE: 6 views of the knees were obtained. FINDINGS: Left knee: There is a below the knee left lower extremity amputation. There are diffuse vascular calcifications. The joint spaces are well-maintained and there is no significant osteoarthritic change. There is no joint effusion. There is no fracture or focal intraosseous abnormality. Right knee: There is no fracture or focal intraosseous abnormality. The joint spaces are well-maintained and ther e is no significant degenerative change. There is no joint effusion. IMPRESSION: 1. No acute fracture or dislocation bilaterally. 2. Below the knee amputation on the left. 3. Diffuse arterial vascular calcifications. 4. No joint effusions or significant intra-articular abnormalities..
[2023-10-05] MEDS ORDERED: INSULIN ASPART (NovoLOG) 100 UNIT/ML VIAL SQ SCH (17:30)
[2023-10-05] MEDS: amLODIPine 10 MG TAB PO SCH (20:36)
[2023-10-05] MEDS: ATORVASTATIN 20 MG TAB PO SCH (20:36)
[2023-10-05 20:49] LABS: Glucose,Whole Blood 199 mg/dL (70-110)
[2023-10-05] MEDS: INSULIN DETEMIR (LEVEMIR) 100 UNIT/ML SYR SQ SCH (20:54)
[2023-10-06 08:07] LABS: Glucose,Whole Blood 249 mg/dL (70-110)
[2023-10-06] MEDS: MELOXICAM 7.5 MG TAB PO PRN (08:44)
[2023-10-06] MEDS: ESCITALOPRAM 20 MG TAB PO SCH (08:46)
[2023-10-06] MEDS: PANTOPRAZOLE 40 MG TABLET PO SCH (08:46)
[2023-10-06] MEDS: APIXABAN 5 MG TAB PO SCH ×2 (08:46→20:52)
[2023-10-06] MEDS: POTASSIUM CHLORIDE ER 20 MEQ TAB.ER PO SCH (08:46)
[2023-10-06] MEDS: hydrALAZINE HCL 50 MG TAB PO SCH ×2 (08:46→20:53)
[2023-10-06] MEDS: GABAPENTIN 300 MG CAP PO SCH ×4 (08:46→20:52)
[2023-10-06] MEDS: INSULIN ASPART (NovoLOG) 100 UNIT/ML VIAL SQ SCH ×4 (08:47→20:52)
[2023-10-06] MEDS: LOSARTAN 25 MG TAB PO SCH (09:05)
[2023-10-06 12:06] LABS: Glucose,Whole Blood 193 mg/dL (70-110)
[2023-10-06 12:45] LABS: Chol/HDL Ratio 2.76 Ratio; VLDL Calculation 18.64 mg/dL (5.00-40.00)
[2023-10-06 12:46] LABS: LDL Cholesterol,Calculated 47.1 mg/dL (0.0-131.0)
--- NOTE | 2023-10-06 15:21 | P.PN ---
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 Diabetes mellitus type 2 insulin-dependent complicated with neuropathy. Abnormal lactic acid 3 on admission. Depression and anxiety. Atrial fibrillation with controlled ventricular response Patient on anticoagulant started by his cattery operator patient did not recall his name Progress note Date of service 10/06/[address] Hoff. Patient seen and evaluated [id number] discussed with the patient and his family Apparently he clarified that his family he has 2 sons and 2 daughters, one of each at bedside. Vital sign today: Temperature 98.2 F oral Heart rate 86 bpm and regular with the atrial fibrillation controlled ventricular response Respiratory rate 17/m normal nonlabored and the chest x-ray reviewed and was negative. His blood pressure 169/88, mean blood pressure 115. His oxygen saturation 96%. He is complaining of pain in spite of that he is on his main medication of the pain and discussed with them that we consulted the pain clinic to see him to evaluate. We did the x-ray of the right and left hips and right and left knee was arthritis no evidence of major problem. Patient stated that he had the phantom pain of the left below knee amputation stump. As reviewed his lab patient had lipid profile and he was taken his Lipitor and his held LDL 47.1 and HDL 37.30 and the ratio cholesterol HDL ratio 2.76. His blood sugar was hypoglycemic was because he was taken short-acting 20 units before each meal and that has been discontinued and subsequent the IV D5 0.9 no rmal saline has been discontinued as his blood sugars start to increase and currently he is on insulin to scale beside the long acting insulin and to be adjusted today. And is last blood sugar was 249 and 193. And covered with insulin to scale. In regard of prostate cancer found a PSA 11.5, and despite of that patient had complete prostatectomy surgically and he had a recurrent which was treated with injection at [facility], subsequently Dr. Winkler oncology hematology followed the patient and continue the treatment however the patient had social and inability to reach and did not have his injection for one year. And we will be consulting Dr. Winkler for evaluation and treatment with the metastatic prostatic CA. In regard of lactic acidosis patient hydrated and repeat lactic acid has improved to 1.4 Review with a hemoglobin A1c was 8.8 with the underlying inability to follow the protocol for injection. Patient is a candidate for the use farxiga 10 mg once a day with a normal renal function and will see if it is available in the hospital or not. Blood pressure today 169/88 not well controlled and yesterday 153/86 and we will readdress the appropriate treatment. On the exam: Head central baldness Normocephalic and atraumatic pupil was equal reactive normal oropharynx natural teeth Neck was supple no JVD no thyromegaly no lymphadenopathy trachea midline Chest he is ex-smoker with underlying history of COPD no wheezes no rhonchi's Heart atrial fibrillation with controlled ventricular response with a history of CO in the past however echocardiogram indicating normal ejection fraction. Abdomen obese positive bowel sound protuberant. Extremities he had history of peripheral vascular disease, left lower extremities amputation below the knee with the pain in the stump phantom pain and right lower extremities pain in the knee and hips could be from the rocking with walking with the prosthesis which he could not use it anymore with due to weakness in the left upper and lower extremities. Assessment: #1 hypertension with hypertensive heart disease #2 diabetes mellitus type 2 not well-controlled insulin-dependent #3 history of atrial fibrillation was controlled ventricular response and history of previous CO however currently echo was negative for motion abnormalit ies. #4 diabetic neuropathy with complicated diabetes #5 left below knee amputation due to peripheral vascular disease and infection of the toes and progressive amputation of his foot and toes #6 depression and anxiety #7 chronic pain syndrome and he was treated by pain clinic however his pain is still present in spite of the medication that he is currently receiving. #8 history of weakness of the left upper and lower extremities and a computed tomography scan of the brain indicating for further evaluation and the we did consult neurology to see the patient and evaluate and if he needs for further MRI or not. Plan: #1 start Farsiga 10 mg once a day #2 start pioglitazone 30 mg once a day. #3 increase his losartan to 50 mg twice a day. #4 waiting for the rehabilitation consult as well as pain clinic as well as occupation and physical therapy #[address] Martines oncology hematology for evaluation and treatment of the prosthetic cancer recurrence and metastasis. #6 future plan for snf [facility] for rehabilitation. Objective - Vital Signs Vital signs: Vital Signs Temp 97.9 F 10/06/23 14:00 Pulse 68 10/06/23 14:00 Resp 15 10/06/23 14:00 BP 164/91 10/06/23 14:00 Pulse Ox 95 10/06/23 14:00 FiO2 Intake & Output 10/05/23 10/06/23 10/06/23 18:59 06:59 18:59 Intake Total 940 Output Total 1800 Balance -860 Intake: Oral 940 Output: Urine 1800 Other: Voiding Method Toilet Toilet Toilet - Labs CBC & Chem 7: 10/04/23 15:47 10/04/23 15:47 Labs: Abnormal Lab Results - Last 24 Hours (Table) 10/05/23 10/05/23 10/05/23 Range/Units 11:35 11:35 17:06 POC Glucose (mg/dL) 240 H (70-110) mg/dL Hemoglobin A1c 8.8 H (<=6.0) % HDL Cholesterol (40.00-60.00) mg/dL PSA Screen 11.500 H (0.000-4.000) ng/mL 10/05/23 10/06/23 10/06/23 Range/Units 20:47 07:40 08:05 POC Glucose (mg/dL) 199 H 249 H (70-110) mg/dL Hemoglobin A1c (<=6.0) % HDL Cholesterol 37.30 L (40.00-60.00) mg/dL PSA Screen (0.000-4.000) ng/mL 10/06/23 Range/Units 12:05 POC Glucose (mg/dL) 193 H (70-110) mg/dL Hemoglobin A1c (<=6.0) % HDL Cholesterol (40.00-60.00) mg/dL PSA Screen (0.000-4.000) ng/mL
[2023-10-06] MEDS: PIOGLITAZONE 30 MG TAB PO SCH (16:16)
[2023-10-06] MEDS: DAPAGLIFLOZIN PROPANEDIOL 10 MG TABLET PO SCH (16:16)
[2023-10-06 17:02] LABS: Glucose,Whole Blood 225 mg/dL (70-110)
[2023-10-06 20:27] LABS: Glucose,Whole Blood 210 mg/dL (70-110)
[2023-10-06] MEDS: ATORVASTATIN 20 MG TAB PO SCH (20:52)
[2023-10-06] MEDS: INSULIN DETEMIR (LEVEMIR) 100 UNIT/ML SYR SQ SCH (20:52)
[2023-10-06] MEDS: LOSARTAN 50 MG TAB PO SCH (20:53)
[2023-10-06] MEDS: amLODIPine 10 MG TAB PO SCH (20:53)
--- NOTE | 2023-10-06 22:44 | P.CNNES ---
History of Present Illness Consult date: 10/06/23 Requesting physician: Grayson Hoff Reason for Consult: Weakness on the left sided, CVA History of Present Illness: Patient is a 67-year-old right-handed male with history of left below-knee amputation, diabetes, came to the hospital by ambulance 10/04/2023 at 2:56 PM for generalized weakness. Patient has history of left below-knee amputation in October 2020, and uses a prosthesis to ambulate. Patient states that about a month ago he fell in the [place]. He was walking with a cane on the carpeted ground, when his foot possibly dragged on the carpet and the processes did not go and he landed on the left side. He crawled to the bench, sat up he used electric cart for the rest of the shopping. Once he was done, he had significant difficulty getting from the electric cart to his car. Since that fall, his left knee, left hip are sore. He is unable to use the prosthesis. When he walks, his left knee gives out and flops, does not lock as it did. It flips on one side or the other. When he walks, his right knee joint will also flip-flop. He also noticed decreased strength in the upper limbs as well. His left leg hurts when he uses the prosthesis since then. It feels like someone is beating with fist into the thigh. He gets shooting pain from the hip to the bottom of the stump and he gets phantom pains a lot. He denies any neck pain or any low back pain. He denies any focal symptoms like facial droop, slurred speech or problem with the vision. He feels just generalized weakness. As per EMS flow sheet, family mentioned patient fell while being transferred from car to the wheelchair. Patient denied any injuries. Patient denies any head neck or back pain. No loss of consciousness. Patient states he has been feeling weaker for a couple weeks. Family mentions that he is having multiple falls a day. Patient has left below-knee amputation. Patient was otherwise alert and oriented 4. His vitals at the scene was blood pressure 125/77, pulse rate is 69, respiration 18, saturation 99%. Blood pressure shows normal CBC, PT/PTT, normal Chem-7, normal renal functions, lactate 3.0. CT head revealed no acute intracranial abnormality. Atrophy and chronic microvessel racemic change. Remote infarct right MCA territory. I personally reviewed CT head, agree with the findings. Chest x-ray normal. Left hip x-ray showed no evidence of acute trauma, mild osteoarthritic change, no s ignificant abnormality of the right hip. Knee x-ray showed no fracture or dislocation bilaterally. Below the knee amputation on the left. Just lately patient has noted right leg is better while going to the bathroom. He notices lack of strength in his arms also. He has handrails in the hospital, which helps. He denies any focal weakness, it is just bilateral all over. Patient has history of diabetes for 10-12 years. He also has smoked about 3/4-1 pack per day for 40-45 years. Patient has been alcohol free for last 9-12 months. Review of Systems Constitutional: Denies chills, Denies fever Eyes: denies blurred vision, denies diplopia, denies pain Ears: left: decreased hearing, deny: ear discharge Ears, nose, mouth and throat: Reports headache (Occasional), Denies sore throat Cardiovascular: Reports chest pain, Reports dyspnea on exertion, Denies shortness of breath Respiratory: Denies cough, Denies excessive sputum Gastrointestinal: Reports abdominal pain, Denies diarrhea, Denies nausea, Denies vomiting Genitourinary: Reports testicular pain, Reports urinary frequency, Denies incontinence Musculoskeletal: Reports low back pain, Denies myalgias, Denies neck pain Integumentary: Denies pruritus, Denies rash Neurological: Reports as per HPI Psychiatric: Reports depression, Denies anxiety Hematologic/Lymphatic: Reports easy bleeding, Reports easy bruising Past Medical History Past Medical History: Atrial Fibrillation, Cancer, CVA/TIA, Diabetes Mellitus, GERD/Reflux, Hypertension, Liver Disease, Myocardial Infarction ([place]), Osteoarthritis (OA), Prostate Disorder Additional Past Medical History / Comment(s): stroke 2 1/2 years-no residual effects, neuropathy both feet, hx. prostate cancer 2003, hx. hepatitis B 2002? Last Myocardial Infarction Date:: 2008 History of Any Multi-Drug Resistant Organisms: CRE Date of last positivie culture/infection: 05/16/19 MDRO Source:: TISSUE FOOT Past Surgical History: Heart Catheterization, Orthopedic Surgery, Prostate Surgery Additional Past Surgical History / Comment(s): prostatectomy, surg. on 1st-2nd toe left foot, surg. for kidney stones, right hand surg. left foot 2nd toe amputation 10/2017 Past Anesthesia/Blood Transfusion Reactions: No Reported Reaction Past Psychological History: No Psychological Hx Reported, Depression Smoking Status: Current every day smoker Past Alcohol Use History: Occasional Additional Past Alcohol Use History / Comment(s): has smoked on and off over the years. currently smoking a pack a day since Lesli time Past Drug Use History: None Reported - Past Family History Mother Family Medical History: Coronary Artery Disease (CAD) Father Family Medical History: CVA/TIA Medications and Allergies Home Medications Medication Instructions Recorded Confirmed Type amLODIPine [Norvasc] 10 mg PO HS 11/07/17 10/04/23 History hydrALAZINE HCL [Apresoline] 50 mg PO BID 11/07/17 10/04/23 History Atorvastatin [Lipitor] 20 mg PO HS 01/16/19 10/04/23 History Pantoprazole [Protonix] 40 mg PO DAILY 05/15/19 10/04/23 History Apixaban [Eliquis] 5 mg PO BID 10/04/23 10/04/23 History Escitalopram [Lexapro] 20 mg PO DAILY 10/04/23 10/04/23 History Gabapentin 600 mg PO QID 10/04/23 10/04/23 History Insulin Aspart [NovoLOG Flexpen] 20 units SQ TID-W/MEALS 10/04/23 10/04/23 History Insulin Glargine,Hum.rec.anlog 10 units SQ HS 10/04/23 10/04/23 History [Lantus Solostar Pen] Losartan [Cozaar] 25 mg PO DAILY 10/04/23 10/04/23 History Meloxicam [Mobic] 15 mg PO DAILY PRN 10/04/23 10/04/23 History Potassium Chloride ER [K-Dur 20] 20 meq PO DAILY 10/04/23 10/04/23 History oxyCODONE HCL [oxyCODONE HCL (IR)] 30 mg PO TID PRN 10/04/23 10/04/23 History Allergies Allergy/AdvReac Type Severity Reaction Status Date / Time No Known Allergies Allergy Verified 10/04/23 19:25 Physical Examination - Vital Signs Vital Signs: Vital Signs Temp Pulse Resp BP Pulse Ox 10/06/23 12:10 98.2 F 86 17 169/88 96 10/06/23 08:00 98.6 F 67 16 153/86 98 10/06/23 01:50 98.0 F 77 18 140/77 98 10/05/23 20:15 98.1 F 78 18 152/86 98 Intake and Output 10/05/23 10/06/23 10/06/23 22:59 06:59 14:59 Intake Total 940 Output Total 600 1200 Balance -600 -260 Intake: Oral 940 Output: Urine 600 1200 Other: Voiding Method Toilet Toilet Patient is an elderly male, very pleasant, in no acute distress. Patient is alert awake oriented to time place and person. Speech and language functions are normal. Patient can name and repeat very well. No aphasia or dysarthria. Attention, concentration and fund of knowledge is adequate. On cranial nerve examination, pupils are equal, round and reacting to light, visual malik are full on confrontation, with no neglect on double simultaneous stimulation. Extraocular muscles are intact with no nystagmus. Face is symmetric, tongue protrudes to the midline. Palatal elevation and sensation normal, hearing and shoulder shrug normal, facial sensation normal. On muscle strength testing, there is no pronator drift and the strength is normal in arms distally and proximally, except interossei which is about 5- bilaterally, particularly weakness of the lateral 2 digits of both hands. In the lower limb, his ankle dorsiflexion is normal, hip flexion is about 4+. Deep tendon reflexes are (right/left) biceps 1/1, brachioradialis trace/1, knees trace/-, ankles 0/-, plantar is flat on the right. Patient has left BKA. Sensory to touch is equal with no neglect on double simultaneous stimulation. Cerebellar function showed no ataxia for [id number] testing, although he was somewhat tremulous/shaky, left more than right. No dysdiadochokinesia. Tone and bulk of muscles normal. Gait deferred.. On general examination, there is no carotid bruit or murmur, S1-S2 audible. Chest is clear on consultation. Abdomen is soft nontender. No organomegaly, bowel sounds present. Patient has left BKA. Patient has amputation of the 3 medial toes of the right foot as well. Results - Laboratory Findings CBC and BMP: 10/04/23 15:47 10/04/23 15:47 Abnormal Lab Findings: Abnormal Labs 10/04/23 10/04/23 10/04/23 15:47 15:47 21:06 Creatinine 0.65 L Glucose 109 H POC Glucose (mg/dL) 217 H Hemoglobin A1c Plasma Lactic Acid Kaushik 3.0 H* HDL Cholesterol PSA Screen 10/05/23 10/05/23 10/05/23 07:38 11:35 11:35 Creatinine Glucose POC Glucose (mg/dL) 113 H Hemoglobin A1c 8.8 H Plasma Lactic Acid Kaushik HDL Cholesterol PSA Screen 11.500 H 10/05/23 10/05/23 10/06/23 17:06 20:47 07:40 Creatinine Glucose POC Glucose (mg/dL) 240 H 199 H Hemoglobin A1c Plasma Lactic Acid Kaushik HDL Cholesterol 37.30 L PSA Screen 10/06/23 10/06/23 08:05 12:05 Creatinine Glucose POC Glucose (mg/dL) 249 H 193 H Hemoglobin A1c Plasma Lactic Acid Kaushik HDL Cholesterol PSA Screen Assessment and Plan Assessment: * Generalized weakness involving all 4 limbs, with difficulty with ambulation. Patient's examination is nonfocal. No clinical evidence of stroke/TIA. Generalized weakness could be related to possible diabetic neuropathy, or other nutritional deficiencies. Patient denies any neck or low back pain, with no radicular symptoms. * History of left BKA * Diabetes, poorly controlled * Probable peripheral neuropathy * Hypertension * History of prostate cancer * History of CVA 2-1/2 years ago, with no residual deficits * Atrial fibrillation, currently on anticoagulation. * Tobacco use Plan: * Patient's examination is nonfocal. His generalized weakness is likely either from peripheral neuropathy, or nutritional deficiency. * No clinical evidence of stroke/TIA. Continue Eliquis for stroke prevention related to atrial fibrillation. * Hemoglobin A1c 8.8. Recommend optimize control of diabetes to target A1c <7.0 * PSA 11.50. IM to address * We will check B12, folate, MMA, B6 * Lipid panel with cholesterol 103, LDL 47, HDL 37 and triglycerides 93.2. Continue Lipitor 20 mg daily. * 2-D echo revealed left ventricular hypertrophy with preserved systolic function with EF 55-60%. Right ventricular enlargement, biatrial enlargement. * Dr. Curtis Dasilva will resume neurology service in the morning. Thank you for the consult. Time with Patient: Greater than 30
[2023-10-07 07:17] LABS: Glucose,Whole Blood 193 mg/dL (70-110)
[2023-10-07] MEDS: INSULIN ASPART (NovoLOG) 100 UNIT/ML VIAL SQ SCH ×4 (08:11→20:34)
[2023-10-07] MEDS: APIXABAN 5 MG TAB PO SCH ×2 (08:12→20:33)
[2023-10-07] MEDS: DAPAGLIFLOZIN PROPANEDIOL 10 MG TABLET PO SCH (08:13)
[2023-10-07] MEDS: PANTOPRAZOLE 40 MG TABLET PO SCH (08:13)
[2023-10-07] MEDS: PIOGLITAZONE 30 MG TAB PO SCH (08:13)
[2023-10-07] MEDS: POTASSIUM CHLORIDE ER 20 MEQ TAB.ER PO SCH (08:13)
[2023-10-07] MEDS: GABAPENTIN 300 MG CAP PO SCH ×4 (08:13→20:34)
[2023-10-07] MEDS: LOSARTAN 50 MG TAB PO SCH ×2 (08:13→20:34)
[2023-10-07] MEDS: hydrALAZINE HCL 50 MG TAB PO SCH ×2 (08:13→20:34)
[2023-10-07] MEDS: ESCITALOPRAM 20 MG TAB PO SCH (08:13)
[2023-10-07] MEDS: IOPAMIDOL CONTRAST (ORAL USE) VIAL PO PRN ×2 (10:27→11:43)
[2023-10-07] MEDS: MELOXICAM 7.5 MG TAB PO PRN (10:33)
--- NOTE | 2023-10-07 10:39 | P.CONS ---
History of Present Illness - Reason for Consult Consult date: 10/07/23 prostate cancer Requesting physician: Grayson Hoff - Chief Complaint pain - History of Present Illness Mr. Cisneros is a 67-year-old male with a past medical history of diabetes mellitus, atrial fibrillation on anticoagulation, hypertension, hyperlipidemia, below-knee amputation and prostate cancer who is currently admitted with progressive pain, mostly in the left thigh as well as headache, nothing he was using at home was helping including his prescribed pain medications. He was brought to the emergency department for evaluation. On further questioning patient reports about a 20 pound weight loss in the last 6 months, unintentional. He denied fevers, sweats, nausea or vomiting, new cough, chest pain, abdominal pain or distention, acute changes in bowel or bladder habits. Lactic acid elevated on admission, vital signs stable, CBC within normal defined limits, PSA 11.5. His history of prostate cancer is he was initially diagnosed 12/21/2003 when he had a transrectal biopsy [place] score 6 (3+3) involving 1/2 cores. He had a radical prostatectomy with Dr. Kearney 03/20/2004, final path adenocarcinoma, [place] score 7 (3+4), involving both lobes, no extracapsular in extension, and negative lymph nodes, pathological staging T2cN0. Patient was having difficu lties following up. He had a PSA of 0.169/, next time it was done was 08/01/2015 and it was 5.86. CT AP 06/15/15 revealed an enlarged lymph node mass 4.1 x 3.4 cm along the upper left external iliac chain. Nuclear medicine bone scan 07/13/[address] chest 10/19/15 was negative. He saw Dr Jacques in 2014 at [facility], had one injection of LHRH agonist at that time, but he did not follow up with her. Another bone scan on 05/07/2016 was negative for metastatic disease. Next PSA he had was on 06/03/2017 and it was up to 40.052. On 07/09/2017,PSA was 55. 07/19/[address] CAP did not reveal any evidence of disease. 11/06/2017 he started leupron, every 6 months. 05/15/2018 PSA 0.2. He cancelled his injections and follow ups, last lupron injection was 07/2020. His PSA increased to 16.44, he then resumed lupron. PSA on 06/27/[address] CAP and bone scan 07/12/21 revealed no evidence of disease. He was last seen 02/27/22. Review of Systems 10 point review of systems is negative except as stated in HPI Past Medical History Past Medical History: Atrial Fibrillation, Cancer, CVA/TIA, Diabetes Mellitus, GERD/Reflux, Hypertension, Liver Disease, Myocardial Infarction ([place]), Osteoart hritis (OA), Prostate Disorder Additional Past Medical History / Comment(s): stroke 2 1/2 years-no residual effects, neuropathy both feet, hx. prostate cancer 2003, hx. hepatitis B 2002? Last Myocardial Infarction Date:: 2008 History of Any Multi-Drug Resistant Organisms: CRE Year Discovered:: 05/16/19 MDRO Source:: TISSUE FOOT Past Surgical History: Heart Catheterization, Orthopedic Surgery, Prostate Surgery Additional Past Surgical History / Comment(s): prostatectomy, surg. on 1st-2nd toe left foot, surg. for kidney stones, right hand surg. left foot 2nd toe amputation 10/2017 Past Anesthesia/Blood Transfusion Reactions: No Reported Reaction Past Psychological History: No Psychological Hx Reported, Depression Smoking Status: Current every day smoker Past Alcohol Use History: Occasional Additional Past Alcohol Use History / Comment(s): has smoked on and off over the years. currently smoking a pack a day since [place] time Past Drug Use History: None Reported - Past Family History Mother Family Medical History: Coronary Artery Disease (CAD) Father Family Medical History: CVA/TIA Medications and Allergies Home Medications Medication Instructions Recorded Confirmed Type amLODIPine [Norvasc] 10 mg PO HS 11/07/17 10/04/23 History hydrALAZINE HCL [Apresoline] 50 mg PO BID 11/07/17 10/04/23 History Atorvastatin [Lipitor] 20 mg PO HS 01/16/19 10/04/23 History Pantoprazole [Protonix] 40 mg PO DAILY 05/15/19 10/04/23 History Apixaban [Eliquis] 5 mg PO BID 10/04/23 10/04/23 History Escitalopram [Lexapro] 20 mg PO DAILY 10/04/23 10/04/23 History Gabapentin 600 mg PO QID 10/04/23 10/04/23 History Insulin Aspart [NovoLOG Flexpen] 20 units SQ TID-W/MEALS 10/04/23 10/04/23 History Insulin Glargine,Hum.rec.anlog 10 units SQ HS 10/04/23 10/04/23 History [Lantus Solostar Pen] Losartan [Cozaar] 25 mg PO DAILY 10/04/23 10/04/23 History Meloxicam [Mobic] 15 mg PO DAILY PRN 10/04/23 10/04/23 History Potassium Chloride ER [K-Dur 20] 20 meq PO DAILY 10/04/23 10/04/23 History oxyCODONE HCL [oxyCODONE HCL (IR)] 30 mg PO TID PRN 10/04/23 10/04/23 History Allergies Allergy/AdvReac Type Severity Reaction Status Date / Time No Known Allergies Allergy Verified 10/04/23 19:25 Physical Exam Vitals: Vital Signs Temp Pulse Resp BP Pulse Ox 10/07/23 07:41 97.9 F 74 18 144/76 94 L 10/07/23 01:13 98.1 F 60 18 117/66 95 10/06/23 20:00 15 10/06/23 19:35 98.6 F 69 18 128/79 95 10/06/23 14:00 97.9 F 68 15 164/91 95 10/06/23 12:10 98.2 F 86 17 169/88 96 Intake and Output 10/06/23 10/07/23 10/07/23 22:59 06:59 14:59 Output Total 275 1300 Balance -275 -1300 Output: Urine 275 1300 Other: Voiding Method Toilet Toilet # Voids 1 - Constitutional General appearance: average body habitus, cooperative, no acute distress - EENT Eyes: anicteric sclerae, EOMI ENT: hearing grossly normal, normal oropharynx - Neck Neck: no lymphadenopathy - Respiratory Respiratory: bilateral: CTA - Cardiovascular Rhythm: regular Heart sounds: normal: S1, S2 Abnormal Heart Sounds: no systolic murmur, no diastolic murmur, no rub, no S3 Gallop, no S4 Gallop, no click, no other leg Peripheral Edema: right: Trace, left: Other (Below-knee amputation) - Gastrointestinal General gastrointestinal: no absent bowel sounds, no decreased bowel sounds, no distended, no hepatomegaly, no hyperactive bowel sounds, normal bowel sounds, no organomegaly, no rigid, no scaphoid, soft, no splenomegaly, no tenderness, no umbilical hernia, no ventral hernia - Integumentary Integumentary: pale - Neurologic Neurologic: CNII-XII intact (Grossly) - Musculoskeletal Musculoskeletal: generalized weakness - Psychiatric Psychiatric: A&O x's 3, appropriate affect, intact judgment & insight Results CBC & Chem 7: 10/04/23 15:47 10/04/23 15:47 Labs: Abnormal Lab Results - Last 24 Hours (Table) 10/06/23 10/06/23 10/06/23 Range/Units 07:40 12:05 17:01 POC Glucose (mg/dL) 193 H 225 H (70-110) mg/dL HDL Cholesterol 37.30 L (40.00-60.00) mg/dL 10/06/23 10/07/23 Range/Units 20:24 07:16 POC Glucose (mg/dL) 210 H 193 H (70-110) mg/dL HDL Cholesterol (40.00-60.00) mg/dL Comments: Echo report reviewed CT Scan - head: report reviewed (Without contrast, no acute cranial abnormality reported) Assessment and Plan (1) Primary prostate adenocarcinoma Current Visit: Yes Status: Chronic Priority: High Code(s): C61 - MALIGNANT NEOPLASM OF PROSTATE SNOMED Code(s): 0512821137 Plan: History of prostate adenocarcinoma -Diagnosis and treatment as stated in HPI -He has not had treatment and for over a year -PSA 11.5 -CT CAP with contrast ordered along with nuclear medicine bone scan to assess for metastatic disease -Patient verbalized understanding the plan. Doctor attests: I performed a history and physical examination of this patient, developed impression and plan of care. Discussed with dictator. I agree with dictators note, documented as a scribe.
[2023-10-07 11:58] LABS: Glucose,Whole Blood 216 mg/dL (70-110)
--- NOTE | 2023-10-07 12:10 | P.PAINPG ---
Objective - Vital Signs Vital signs: Vital Signs Temp 97.9 F 10/07/23 07:41 Pulse 74 10/07/23 07:41 Resp 18 10/07/23 07:41 BP 144/76 10/07/23 07:41 Pulse Ox 94 L 10/07/23 07:41 FiO2 Intake & Output 10/06/23 10/07/23 10/07/23 18:59 06:59 18:59 Output Total 1575 Balance -1575 Output: Urine 1575 Other: Voiding Method Toilet Toilet Toilet # Voids 4 1 - Labs CBC & Chem 7: 10/04/23 15:47 10/04/23 15:47 Labs: Abnormal Lab Results - Last 24 Hours (Table) 10/06/23 10/06/23 10/06/23 Range/Units 07:40 12:05 17:01 POC Glucose (mg/dL) 193 H 225 H (70-110) mg/dL HDL Cholesterol 37.30 L (40.00-60.00) mg/dL 10/06/23 10/07/23 Range/Units 20:24 07:16 POC Glucose (mg/dL) 210 H 193 H (70-110) mg/dL HDL Cholesterol (40.00-60.00) mg/dL PQRS Measure Charge Sheet Comment: HISTORY OF PRESENT ILLNESS: A 67 yr old inpatient male w L BKA as a referral from Dr Hoff presents today w severe and chronic BL hip and BL knee pain secondary to DJD for evaluation. Pt states pain level is provoked at 9 /10 in intensity, constant, localized in the R lower lumbar spine, phantom pain in LLE stump as well as BL hips and BL knees R> L, predominantly axial, achy in character without occasional shooting pain Pain is provoked by palpation over the lumbar spine, bending, twisting. Pain is alleviated by medications (Oxycodone 30mg PO TID prn, Mobic 15mg PO QD, Neurontin TID, Narcan prn), repositioning and rest. PMH: OA, aFib, Prostate CA (2003), CVA (2019), IDDM II, GERD, HTN, Liver Disease, HI (2008), BPH, MDD PSH: Heart Catheterization (2008), L 1st/2nd Toe Surgery, L Foot Amputation (2016), Prostatectomy, Nephrolithiasis, R Hand Surgery SH: Daily tobacco use, Occasional ETOH use, No illicit drug use. . Lives w daughter. FH: Mo- CAD. Fa- CVA All: See list Meds: See list REVIEW OF ORGAN SYSTEMS: CONSTITUTIONAL: No fevers or chills. No recent weight loss. NEUROLOGICAL: + numbness and tingling along the distal extremities. No seizure disorders or headaches. MUSCULOSKELETAL: + pain PSYCHIATRIC: Denies current depression or suicidal thoughts. Physical Examinations : Constitutional : Cooperative , not in acute distress . Neurologic : Cranial nerve II to XII intact. No focal neurological deficits. Psychiatric : alert & oriented x 3. Matching mood & appropriate affect. Judgment & insight intact. Musculoskeletal : Cervical Spine Motor strength in the deltoid and biceps: Normal right side. Normal Left side Motor strength biceps and the wrist extensors: Normal right side . Normal left side Motor strength in the triceps muscle: Normal right side. Normal left side Deep tendon reflexes: Normal at the biceps. Normal at Brachioradialis. Normal at triceps Vertebral body tenderness to deep palpation over Cervical facet loading test: positive bilaterally Spurling test: positive bilaterally Neck distraction test: positive bilaterally Rich sign: positive bilaterally Lumbar spine +LLE Stump Motor strength lower extremities ,thigh and legs 5/5 Right side , 5/5 Left side Deep tendon reflexes : Normal Knee Jerk. Normal Ankle Jerk Vertebral body tenderness over L5 Tavares Test positive over L5-S1 R> L Lumbar facet Loading Test: positive Right / positive Left Range of motion of the lumbar spine Flexion 30 degrees, extension 10 degrees Straight Leg Raise test: Left/ Right positive at degree Dino test: positive right / positive left. Severe tenderness over the Sacroiliac joint on the Right / Left sides Gaenslen test: positive bilaterally Seated flexion test: positive bilaterally. Sacral spine : Severe tenderness over the Sacroiliac joint: right side / left side Range of motion: Flexion of the lumbar spine <60 degrees Range of motion: Extension of the lumbar spine <20 degrees Gaenslen's Test positive Dino test: positive right side / left side Thigh Thrust Test Sacral Thrust Test Imaging: X-ray of BL hips from 10/05/23 was significant for mild DJD X-ray of BL knees from 10/05/23 was not significant for intra articular abnorma lities Assessment/ Plan : Recommendation of MRI non contrast of the lumbar spine M51.36 May need a dditional testing or interventional pain management for optimal pain relief. Pt agreeable to care. All questions answered. - Pain Location Left Hip Non-Pharmacological Interventions: Position/Reposition Pharmacological Interventions: PRN Medication PQRS Narrative: Smoking Status Current every day smoker Blood Pressure [Left Arm] 144/76 Blood Pressure 135/89 Pain Intensity [Left Hip] 0 Pain Intensity 7 Pain Scale Used Numeric (1 - 10) Scale Used Numeric (1 - 10) Home Medications: Ambulatory Orders amLODIPine [Norvasc] 10 mg PO HS 11/07/17 hydrALAZINE HCL [Apresoline] 50 mg PO BID 11/07/17 Atorvastatin [Lipitor] 20 mg PO HS 01/16/19 Pantoprazole [Protonix] 40 mg PO DAILY 05/15/19 Apixaban [Eliquis] 5 mg PO BID 10/04/23 Escitalopram [Lexapro] 20 mg PO DAILY 10/04/23 Gabapentin 600 mg PO QID 10/04/23 Insulin Aspart [NovoLOG Flexpen] 20 units SQ TID-W/MEALS 10/04/23 Insulin Glargine,Hum.rec.anlog [Lantus Solostar Pen] 10 units SQ HS 10/04/23 Losartan [Cozaar] 25 mg PO DAILY 10/04/23 Meloxicam [Mobic] 15 mg PO DAILY PRN 10/04/23 Potassium Chloride ER [K-Dur 20] 20 meq PO DAILY 10/04/23 oxyCODONE HCL [oxyCODONE HCL (IR)] 30 mg PO TID PRN 10/04/23 Controlled Substance Measures - Controlled Substance Measures Is patient prescribed a controlled substance at discharge?: No
--- NOTE | 2023-10-07 12:59 | CT ---
EXAMINATION TYPE: CT ChestAbdPelvis w con CT DLP: 2200.5 mGycm, Automated exposure control for dose reduction was used. DATE OF EXAM: 10/07/2023 12:42 PM COMPARISON: 07/12/2021. CLINICAL INDICATION:Male, 67 years old with history of Hx prostate adeno,no Tx for 2 years,inc PSA,pa in; PHH, abdominal pain Technique: Multiple axial images of the chest, abdomen, and pelvis were obtained. Two-dimensional cor onal and sagittal reconstructions were obtained. Contrast used:100 mL of Isovue 300 with IV Contrast, Oral contrast used: with Oral Contrast Findings: CHEST: LUNGS/ PLEURA: The lung parenchyma appears unremarkable. AIRWAY: Patent and unremarkable. HEART: Size within normal limits. Moderate severe coronary artery atherosclerosis. MEDIASTINUM: No gross evidence of adenopathy. VASCULATURE: No aortic aneurysm. MUSCULOSKELETAL: No acute osseous abnormalities. SOFT TISSUES/LYMPH NODES: Unremarkable. LOWER NECK: No significant findings. ABDOMEN: ABDOMEN LIVER: Stable right hepatic lobe probable cyst measuring 7 mm. GALLBLADDER AND BILE DUCTS: Unremarkable. PANCREAS: Unremarkable. SPLEEN: Unremarkable. ADRENAL GLANDS: Left adrenal myelolipoma measuring 21 mm. KIDNEYS AND URETERS:No evidence for hydronephrosis. Nonobstructing renal calculi on the left measurin g up to 11 mm. Probable bilateral renal cysts. There is a exophytic hyperdense cyst the right kidney measuring 22 x 14 mm measuring 70.5 Hounsfield units in compatible with proteinaceous/hemorrhagic cys t. PELVIS BLADDER: Unremarkable REPRODUCTIVE: The prostate gland appears surgically absent. No definitive soft tissue in the surgical bed to suggest recurrence. No pelvic lymphadenopathy. STOMACH AND BOWEL: No evidence of bowel obstruction. The appendix is normal. PERITONEUM: No evidence of pneumoperitoneum or free fluid. VASCULATURE: No evidence of aortic aneurysm. MUSCULOSKELETAL: No acute osseous abnormalities, right pelvis bone island. No additional suspicious s clerotic foci. L3 and T9 vertebral body hemangiomas. LYMPH NODES: No gross evidence for lymphadenopathy. SOFT TISSUE/ABDOMINAL WALL: Left IMPRESSION: 1. Post prostate removal without evidence of abnormal soft tissue in the surgical bed. No adenopathy visualized. No definitive sclerotic lesions which are suspicious. Consider nuclear medicine pet/CT g allium-68 PSMA scan for further evaluation for metastatic prostate adenocarcinoma. 2. No evidence for acute abdominal process.
--- NOTE | 2023-10-07 15:33 | NM ---
EXAMINATION TYPE: NM bone scan whole body DATE OF EXAM: 10/07/2023 COMPARISON: 07/12/2021 CLINICAL INDICATION: Male, 67 years old with history of Hx prostate adeno,no Tx for 2 years,inc PSA, pain; Delayed whole-body scanning was performed following the injection of 23.0 mCi Tc 99m MDP. Images acq uired 3 hours post injection. FINDINGS: Focal increased radiotracer accumulation involving anterior right rib #5. No additional foci of abnor mal increased radiotracer accumulation seen. There is mild increased radiotracer accumulation involvi ng the shoulders, sternoclavicular joints, mid thoracic spine and hips. There is a [id number] amp utation of the left lower extremity. IMPRESSION: New Focal increased radiotracer accumulation involving anterior right rib #5. Radiographic correlatio n recommended to exclude solitary metastatic lesion versus fracture.
[2023-10-07 16:45] LABS: Glucose,Whole Blood 168 mg/dL (70-110)
--- NOTE | 2023-10-07 17:24 | P.PN ---
Subjective Progress Note Date: 10/07/23 I am seeing the patient for the first time during this admission. Please refer to Dr. Brasher's note for further details. The patient has been having generalized weakness and seems the patient has diabetes mellitus is poorly controlled having pain over the left knee left thigh region and he has left phantom pain. He denies of any new focal deficit. He feels generalized weakness. Pain has been going on for the last 1 month daily. Denies of any neurological deficit. He feels somewhat better today compared to initial presentation. Continues to have left knee pain and feels alleviated with oxycodone Objective - Vital Signs Vital signs: Vital Signs Temp 97.9 F 10/07/23 13:56 Pulse 71 10/07/23 13:56 Resp 19 10/07/23 13:56 BP 136/86 10/07/23 13:56 Pulse Ox 98 10/07/23 13:56 FiO2 Intake & Output 10/06/23 10/07/23 10/07/23 18:59 06:59 18:59 Output Total 1575 275 Balance -1575 -275 Output: Urine 1575 275 Other: Voiding Method Toilet Toilet Toilet # Voids 4 1 - Exam Gen. the patient is sitting in the his bed and is not in acute distress Neuro- patient is awake alert oriented to self place and time. He is following simple commands. No aphasia and no neglect. Visual malik are full, rotation. Extraocular movement is intact no nystagmus. No facial weakness. No dysarthria. Motor: Left in bilateral upper extremity equal above gravity. Right lower extremity is able to left without any difficulty. Left lower extremity he has below the knee amputation and having pain especially in the left knee region upon lifting. He stated that he has phantom pain - Labs CBC & Chem 7: 10/04/23 15:47 10/04/23 15:47 Labs: Abnormal Lab Results - Last 24 Hours (Table) 10/06/23 10/07/23 10/07/23 Range/Units 20:24 07:16 11:56 POC Glucose (mg/dL) 210 H 193 H 216 H (70-110) mg/dL 10/07/23 Range/Units 16:43 POC Glucose (mg/dL) 168 H (70-110) mg/dL Assessment and Plan Assessment: * Generalized weakness involving all 4 limbs, with difficulty with ambulation. Patient's examination is nonfocal. No clinical evidence of stroke/TIA. Generalized weakness could be related to possible diabetic neuropathy and in addition borderline normal folate of 5.0. Patient denies any neck or low renea k pain, with no radicular symptoms. * Borderline normal folate of 5.0 * History of left BKA * Diabetes, poorly controlled * Probable peripheral neuropathy * Hypertension * History of prostate cancer * History of CVA 2-1/2 years ago, with no residual deficits * Atrial fibrillation, currently on anticoagulation. * Tobacco use Plan: * For his borderline normal folic acid: I started him on folic acid 1mg daily * B12: 446. * MMA, B6: Pending. * I ordered TSH. * On Eliquis for stroke prevention related to atrial fibrillation. * Hemoglobin A1c 8.8. Recommend optimize control of diabetes to target A1c <7.0 * PSA 11.50. IM to address * Recommend EMG with nerve conduction study of the left lower extremity as outpatient. * Lipid panel with cholesterol 103, LDL 47, HDL 37 and triglycerides 93.2. Continue Lipitor 20 mg daily. * 2-D echo revealed left ventricular hypertrophy with preserved systolic function with EF 55-60%. Right ventricular enlargement, biatrial enlargement. The plan discussed with the patient. Otherwise no additional workup other than the labs pending. We'll follow up with the patient sporadically. Time with Patient: Less than 30
[2023-10-07] MEDS: FOLIC ACID 1 MG TAB PO SCH (17:32)
--- NOTE | 2023-10-07 18:15 | P.PN ---
Subjective Progress Note Date: 10/07/23 Progress note Date of service 10/07/[address] Hoff Patient seen today evaluated [id number] discussed with them the plan Patient had computed tomography scan of the chest abdomen and pelvis ordered by oncology service He had also bone scan which indicate new focal increased radiotracer acc umulation involving the anterior right drip and also presence of increased mild increased current rancid use her involving shoulders sternoclavicular joint and mid thoracic spine and hips. We will see the opinion of the oncology Dr. Martines and his team. Patient seen also by 18 management was for for investigation as they will be ordering MRI to see any treatment to be done through the pain clinic. Seen by neurology consultation Dr. Brasher As Well. And Dr. Curtis Dasilva neurology. In regard of rehabilitation with the underlying left [id number] amputation and phantom pain of the thumb we don't have yet any opinion and we don't have the opinion of the rehab dictation yet. This patient seen [id number] today is still in pain, his vital sign temperature 97.9 F oral, pulse rate 71 with the controlled atrial fibrillation Respiratory rate between 18 and 19 and normal nonlabor Blood pressure is controlled with 136/86 with a mean blood pressure 102. Oxygen saturation 98% on room air. Blood sugar has been controlled with insulin to scale as well as added medication for helping lost blood glucose was 168. To be coming along very well. On examination patient is conscious alert oriented Head normocephalic and atraumatic Oropharynx was negative Neck was supple JVD no thyromegaly no lymphadenopathy Chest was clear to auscultation and percussion Heart atrial fibrillation with controlled ventricular response no chest pain. No shortness of breath . Abdomen: Protuberant positive bowel sounds able to eat and swallow normally Extremities the right lower extremities with the underlying peripheral diabetic neuropathy as well as pigmentation of the skin The right lower extremities with the below knee amputation and difficult of using is his prosthesis 4 walking and painful with the phantom pain.. Assessment: #1 prostatic CA with metastasis and elevated PSA and despite of previous total prostatectomy #2 status post complete prostatectomy. #3 bone scan was positive #4 weakness with the previous history of stroke #5 diabetic neuropathy associated with uncontrolled diabetes mellitus #6 failure to thrive #7 need senior care and rehabilitation. Plan: #1 waiting for the physical therapy evaluation #2 waiting for the oncology treatment with their evaluation with the prostatic cancer recurrence. #3 pain control #4 future physical therapy and rehabilitation in the senior care [facility]. Objective - Vital Signs Vital signs: Vital Signs Temp 97.9 F 10/07/23 13:56 Pulse 71 10/07/23 13:56 Resp 19 10/07/23 13:56 BP 136/86 10/07/23 13:56 Pulse Ox 98 10/07/23 13:56 FiO2 Intake & Output 10/06/23 10/07/23 10/07/23 18:59 06:59 18:59 Output Total 1575 275 Balance -1575 -275 Output: Urine 1575 275 Other: Voiding Method Toilet Toilet Toilet # Voids 4 1 - Labs CBC & Chem 7: 10/04/23 15:47 10/04/23 15:47 Labs: Abnormal Lab Results - Last 24 Hours (Table) 10/06/23 10/07/23 10/07/23 Range/Units 20:24 07:16 11:56 POC Glucose (mg/dL) 210 H 193 H 216 H (70-110) mg/dL 10/07/23 Range/Units 16:43 POC Glucose (mg/dL) 168 H (70-110) mg/dL
[2023-10-07 20:13] LABS: Glucose,Whole Blood 201 mg/dL (70-110)
[2023-10-07] MEDS: amLODIPine 10 MG TAB PO SCH (20:33)
[2023-10-07] MEDS: ATORVASTATIN 20 MG TAB PO SCH (20:33)
[2023-10-07] MEDS: INSULIN DETEMIR (LEVEMIR) 100 UNIT/ML SYR SQ SCH (20:36)
[2023-10-08 07:36] LABS: Glucose,Whole Blood 210 mg/dL (70-110)
[2023-10-08] MEDS: GABAPENTIN 300 MG CAP PO SCH ×4 (08:55→20:40)
[2023-10-08] MEDS: FOLIC ACID 1 MG TAB PO SCH (08:55)
[2023-10-08] MEDS: LOSARTAN 50 MG TAB PO SCH ×2 (08:56→20:40)
[2023-10-08] MEDS: DAPAGLIFLOZIN PROPANEDIOL 10 MG TABLET PO SCH (08:56)
[2023-10-08] MEDS: ESCITALOPRAM 20 MG TAB PO SCH (08:56)
[2023-10-08] MEDS: APIXABAN 5 MG TAB PO SCH ×2 (08:56→20:40)
[2023-10-08] MEDS: POTASSIUM CHLORIDE ER 20 MEQ TAB.ER PO SCH (08:56)
[2023-10-08] MEDS: PANTOPRAZOLE 40 MG TABLET PO SCH (08:56)
[2023-10-08] MEDS: PIOGLITAZONE 30 MG TAB PO SCH (08:56)
[2023-10-08] MEDS: hydrALAZINE HCL 50 MG TAB PO SCH ×2 (08:56→20:40)
[2023-10-08] MEDS: INSULIN ASPART (NovoLOG) 100 UNIT/ML VIAL SQ SCH ×4 (08:56→20:41)
--- NOTE | 2023-10-08 10:59 | MR ---
EXAMINATION TYPE: MR lumbar spine wo con DATE OF EXAM: 10/08/2023 9:00 AM CLINICAL INDICATION:Male, 67 years old with history of M51.36; PHH, COMPARISON: 10/07/2023. TECHNIQUE: Multi planar, multi sequence imaging was performed utilizing: T1-weighted, T2-weighted, a nd turbo inversion recovery imaging of the lumbar spine. IV Contrast: (None if empty) FINDINGS: Alignment: The lumbar vertebral bodies have preserved heights and alignment. Cord: The conus medullaris and the distal spinal cord appear unremarkable with regards to their signa l intensity and morphology. Bones/Discs: Minimal disc degeneration changes worse at L5-S1 with disc space narrowing, osteophytes and Modic endplate changes. Transitional vertebrae with endometritis is 1 S2. Intervertebral disc sig nal is maintained. High T1/T2 signal L3 vertebral body hemangioma. T12-L1: No evidence of significant spinal canal stenosis or neural foraminal stenosis. L1-L2: No evidence of significant spinal canal stenosis or neural foraminal stenosis. L2-L3: Disc bulge and facet joint arthropathy result in mild spinal canal and mild bilateral neural f oraminal stenosis. L3-L4: Disc bulge and facet joint arthropathy result in mild spinal canal and mild bilateral neural f oraminal stenosis. L4-L5: Disc bulge and facet joint arthropathy result in mild spinal canal and mild bilateral neural f oraminal stenosis. L5-S1: The disc is rounded posterior morphology without significant spinal canal stenosis. Facet join t arthropathy with moderate to severe left mild right neural foraminal stenosis. No significant spinal canal or neural foraminal stenosis in the remainder of the visualized levels. Other findings: None. IMPRESSION: 1. No definitive evidence of disc herniation or significant spinal canal stenosis. 2. Fxas-fr-vglyoybl disc degeneration with associated osteoarthritic changes worse at L5-S1.
[2023-10-08 13:12] LABS: Glucose,Whole Blood 160 mg/dL (70-110)
[2023-10-08] MEDS: MELOXICAM 7.5 MG TAB PO PRN (13:16)
--- NOTE | 2023-10-08 14:40 | P.PN ---
Subjective Progress Note Date: 10/08/23 Progress note Date of service 10/08/[address] Paulino Patient seen and evaluated [id number] and discussed with him the results of the investigation and patient had several testing including MRI of the back by the pain clinic Also he had bone scan and computed tomography scan by the oncology doctor Cathi nurse practitioner. Result on the chart. We don't have any conclusions from the pain clinic for what they are recommended and what treatment they will intended And also we don't have any recommendation or treatment from the oncology hematology team with these elevated PSA and bone scan indicating new focal radiotracer increased accumulation in the anterior right fifth rib as well as m ild in the shoulder and the sternoclavicular and what is the treatment at this time. Once clarification from bolus specialist will be planning patient to be discharged to [facility] and rehab and could not send them before we have at least in the common medication of what they want to do. Patient seen as [id number] discussed with him the result. Vital sign temperature 97.8 F oral Pulse rate is 74 with atrial fibrillation, respiratory rate 19 per minute, blood pressure 143/82 mean blood pressure 102 Oxygen saturation on room air 96%. In regard of diabetes and blood glucose at 7:30 today his blood sugar 210 and at 1300 was 160 which is not well controlled and we'll be increasing his Levemir to 15 units subcu daily and continue with the insulin to scale. Head was normocephalic and atraumatic with central baldness. Oropharynx negative, hearing is normal Neck was supple no JVD no thyromegaly no lymphadenopathy. Chest is clear with the increased anteroposterior diameter is ex-smoker in the past however with the interviewed with the oncology he stated that he is still s moking we advised him stop smoking from now on. Heart irregular with atrial fibrillation Abdomen protuberant positive bowel sounds no tenderness Extremities left leg below-knee amputation with the pain with the use of medication for pain is 7/10 and despite that he took his medication also he had the pain in the WITH the inability to walk with the use of the prostate prosthesis due to phantom pain and not fitted well. And mild arthritis but the head by new He had history of stroke in the past however neurology consultation indicated his numbness and tingling and pain from neuropathy secondary to diabetes and the MRI of the brain was not done but the CAT scan was abnormal right frontal and temporal. Assessment: #1 once we have the assessment from the oncology and treatment if indicated will be planning to transfer the patient to [facility] tomorrow [place] for further rehabilitation #2 also we did not have the pain team for recommendation as well which is waiting for that as well #3 in regard of hypertension is currently stable #4 in regard of diabetes mellitus has been monitored and controlled Plan: #1 will be waiting for the above consulting for for further decisions #2 we'll transfer patient to [facility] for continuing rehab once we have that there treatment or their recommendation. Objective - Vital Signs Vital signs: Vital Signs Temp 97.8 F 10/08/23 07:31 Pulse 74 10/08/23 07:31 Resp 19 10/08/23 07:31 BP 143/82 10/08/23 07:31 Pulse Ox 96 10/08/23 07:31 FiO2 Intake & Output 10/07/23 10/08/23 10/08/23 18:59 06:59 18:59 Intake Total 920 Output Total 950 1500 Balance -950 -580 Intake: Oral 920 Output: Urine 950 1500 Other: Voiding Method Toilet Toilet Toilet - Labs CBC & Chem 7: 10/04/23 15:47 10/04/23 15:47 Labs: Abnormal Lab Results - Last 24 Hours (Table) 10/07/23 10/07/23 10/08/23 Range/Units 16:43 20:08 07:34 POC Glucose (mg/dL) 168 H 201 H 210 H (70-110) mg/dL 10/08/23 Range/Units 13:09 POC Glucose (mg/dL) 160 H (70-110) mg/dL
[2023-10-08 17:21] LABS: Glucose,Whole Blood 206 mg/dL (70-110)
--- NOTE | 2023-10-08 18:41 | P.PN ---
Subjective Progress Note Date: 10/08/23 I am following up with the patient and he feels up at the same. He continues to have left knee pain he's having abdominal pain and still continues to be requested and opiates. He states he has history of diabetic neuropathy Objective - Vital Signs Vital signs: Vital Signs Temp 98.3 F 10/08/23 13:04 Pulse 78 10/08/23 13:04 Resp 19 10/08/23 13:04 BP 126/80 10/08/23 13:04 Pulse Ox 97 10/08/23 13:04 FiO2 Intake & Output 10/07/23 10/08/23 10/08/23 18:59 06:59 18:59 Intake Total 920 Output Total 950 1500 Balance -950 -580 Intake: Oral 920 Output: Urine 950 1500 Other: Voiding Method Toilet Toilet Toilet # Voids 2 - Exam Gen. the patient is sitting in the his bed and is not in acute distress Neuro- patient is awake alert oriented to self place and time. He is following simple commands. No aphasia and no neglect. Visual malik are full, rotation. Extraocular movement is intact no nystagmus. No facial weakness. No dysarthria. Motor: Left in bilateral upper extremity equal above gravity. Right lower extremity is able to left without any difficulty. Left lower extremity he has below the knee amputation and having pain especially in the left knee region upon lifting. He stated that he has phantom pain - Labs CBC & Chem 7: 10/04/23 15:47 10/04/23 15:47 Labs: Abnormal Lab Results - Last 24 Hours (Table) 10/07/23 10/08/23 10/08/23 Range/Units 20:08 07:34 13:09 POC Glucose (mg/dL) 201 H 210 H 160 H (70-110) mg/dL 10/08/23 Range/Units 17:20 POC Glucose (mg/dL) 206 H (70-110) mg/dL Assessment and Plan Assessment: * Generalized weakness involving all 4 limbs, with difficulty with ambulation. Patient's examination is nonfocal. No clinical evidence of stroke/TIA. Generalized weakness could be related to possible diabetic neuropathy and in addition borderline normal folate of 5.0. Patient denies any neck or low back pain, with no radicular symptoms. * Borderline normal folate of 5.0 * History of left BKA * Diabetes, poorly controlled * Probable peripheral neuropathy * Hypertension * History of prostate cancer * History of CVA 2-1/2 years ago, with no residual deficits * Atrial fibrillation, currently on anticoagulation. * Tobacco use Plan: * For his borderline normal folic acid: I started him on folic acid 1mg daily * B12: 446. * Dr. Brasher ordered MMA, B6: Pending. * TSH: 2.480 * On Eliquis for stroke prevention related to atrial fibrillation. * Hemoglobin A1c 8.8. Recommend optimize control of diabetes to target A1c <7.0 * She is on gabapentin 600 mg a tablet 4 times a day. * PSA 11.50. IM to address * Recommend EMG with nerve conduction study of the left lower extremity as outpatient. Recommend the patient follow up with a neurologist as an outpatient within 3-4 weeks. * Lipid panel with cholesterol 103, LDL 47, HDL 37 and triglycerides 93.2. Continue Lipitor 20 mg daily. * 2-D echo revealed left ventricular hypertrophy with preserved systolic function with EF 55-60%. Right ventricular enlargement, biatrial enlargement. The plan discussed with the patient and his nurse Otherwise no additional workup other than the labs pending. If vitamin B6 and methylmalonic acids are normal in the patient is clear from a neurologic perspective. We'll follow up with the patient sporadically. Time with Patient: Less than 30
[2023-10-08 20:09] LABS: Glucose,Whole Blood 183 mg/dL (70-110)
[2023-10-08 20:25] VITALS: RESP 16
[2023-10-08] MEDS: ATORVASTATIN 20 MG TAB PO SCH (20:40)
[2023-10-08] MEDS: amLODIPine 10 MG TAB PO SCH (20:40)
[2023-10-08] MEDS ORDERED: INSULIN DETEMIR (LEVEMIR) 100 UNIT/ML SYR SQ SCH (21:00)
--- NOTE | 2023-10-08 23:27 | P.PN ---
Subjective Progress Note Date: 10/08/23 Principal diagnosis: Hx prostate cancer. Admitted for pain and weakness Pt seen today in f/u. He has pain in left thigh and back, weakness is a little better. No other acute c/o. Objective - Vital Signs Vital signs: Vital Signs Temp 97.8 F 10/08/23 07:31 Pulse 74 10/08/23 07:31 Resp 19 10/08/23 07:31 BP 143/82 10/08/23 07:31 Pulse Ox 96 10/08/23 07:31 FiO2 Intake & Output 10/07/23 10/08/23 10/08/23 18:59 06:59 18:59 Intake Total 920 Output Total 950 1500 Balance -950 -580 Intake: Oral 920 Output: Urine 950 1500 Other: Voiding Method Toilet Toilet Toilet - Constitutional General appearance: Present: average body habitus, cooperative, no acute distress - EENT Eyes: Present: anicteric sclerae, EOMI ENT: Present: hearing grossly normal - Respiratory Details: resp even and unlabored at rest - Cardiovascular Details: skin warm and dry to touch - Peripheral edema leg Peripheral Edema: right: None, left: Other (BKA) - Integumentary Integumentary: Present: normal - Neurologic Neurologic: Present: CNII-XII intact - Musculoskeletal Musculoskeletal: Present: generalized weakness - Psychiatric Psychiatric: Present: A&O x's 3, appropriate affect, intact judgment & insight - Labs CBC & Chem 7: 10/04/23 15:47 10/04/23 15:47 Labs: Abnormal Lab Results - Last 24 Hours (Table) 10/07/23 10/07/23 10/07/23 Range/Units 11:56 16:43 20:08 POC Glucose (mg/dL) 216 H 168 H 201 H (70-110) mg/dL 10/08/23 Range/Units 07:34 POC Glucose (mg/dL) 210 H (70-110) mg/dL - Imaging and Cardiology CT scan - abdomen: report reviewed CT scan - chest: report reviewed CT scan - pelvis: report reviewed NM bone scan report reviewed Assessment and Plan (1) Primary prostate adenocarcinoma Current Visit: Yes Status: Chronic Priority: High Code(s): C61 - MALIGNANT NEOPLASM OF PROSTATE SNOMED Code(s): 0865805495 Plan: History of prostate adenocarcinoma -CT CAP and NM bone scan results reviewed with pt. Does not appear to have visceral mets, 1 rt rib lesion. Recommend PSMA PET scan outpt to define if pt has subclinical mets -Did recommend pt f/u with Dr. Winkler to develop a treatment plan as his PSA is increased, he has not had any treatment and for over a year -PSA 11.5 -Patient verbalized understanding the plan and would like to follow up. Plan f or PSMA PET and f/u with Dr. Winkler for a discussion about treatment options after he is discharged from rehab. Doctor attests: I performed a history and physical examination of this patient, developed impression and plan of care. Discussed with dictator. I agree with dictators note, documented as a scribe.
[2023-10-09 07:40] LABS: Glucose,Whole Blood 239 mg/dL (70-110)
[2023-10-09 07:58] VITALS: BP 150/78; PULSE 58; TEMP 97.7
[2023-10-09] MEDS: APIXABAN 5 MG TAB PO SCH (08:27)
[2023-10-09] MEDS: INSULIN ASPART (NovoLOG) 100 UNIT/ML VIAL SQ SCH ×2 (08:27→13:23)
[2023-10-09] MEDS: DAPAGLIFLOZIN PROPANEDIOL 10 MG TABLET PO SCH (08:27)
[2023-10-09] MEDS: PANTOPRAZOLE 40 MG TABLET PO SCH (08:27)
[2023-10-09] MEDS: ESCITALOPRAM 20 MG TAB PO SCH (08:27)
[2023-10-09] MEDS: PIOGLITAZONE 30 MG TAB PO SCH (08:28)
[2023-10-09] MEDS: POTASSIUM CHLORIDE ER 20 MEQ TAB.ER PO SCH (08:28)
[2023-10-09] MEDS: hydrALAZINE HCL 50 MG TAB PO SCH (08:28)
[2023-10-09] MEDS: LOSARTAN 50 MG TAB PO SCH (08:28)
[2023-10-09] MEDS: GABAPENTIN 300 MG CAP PO SCH ×2 (08:28→13:22)
[2023-10-09] MEDS: FOLIC ACID 1 MG TAB PO SCH (08:28)
[2023-10-09 12:10] LABS: Glucose,Whole Blood 195 mg/dL (70-110)
--- NOTE | 2023-10-09 12:38 | P.DS ---
Providers Date of admission: 10/04/23 19:51 Expected date of discharge: 10/09/23 Attending physician: Grayson Hoff Consults: 10/05/23 13:18 Consult Physician Urgent Consulting Provider: Curtis Dasilva Consult Reason/Comments: Weakness on the left sided, CVA Do you want consulting provider notified?: Yes 10/06/23 14:37 Consult Physician Urgent Consulting Provider: René Winkler Consult Reason/Comments: Metastatic prostatic cancer, recurrence post prostatectomy Do you want consulting provider notified?: Yes, Notify in am Primary care physician: Grayson Hoff Dictation on discharge summary Admission date 10/04/2023 Discharge date 10/09/2023 Disposition: Tomorrow [facility]. Continue rehab dictation. Final diagnoses: #1 failure to thrive and grave disability #2 left below-knee amputation with the failure to use his prosthesis because of the weakness. #3 diabetes mellitus type 2 uncontrolled insulin-dependent with hyperglycemia complicated with diabetic neuropathy. #4 atrial fibrillation was controlled ventricular response on anticoagulant. #5 chronic pain syndrome has been followed as outpatient by Dr. waddell neurology clinic and pain clinic #6 seen by pain clinic in the hospital on this admission so far no plan recorded with the underlying significant stenosis of the lumbosacral spine by MRI ordered by the pain clinic may follow as outpatient #7 metastatic prostatic cancer with elevated PSA, history of total prostatectomy with the recurrence seen by oncology team of Dr. Winkler so far no response of treatment may follow as outpatient #8 hyperlipidemia #9 history of myocardial infarction, echocardiogram indicating normal ejection fraction. He is to follow was cardiology. 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 Lagunas vascular surgeon in the past #11 history of right frontal parietal CVA in the past, was no residual seen by neurology cleared him with the diagnosis from the aspect diabetic neuropathy #12 borderline folic acid continued treatment by neurology for vitamin B12 and folic acid. Hypertension with hypertensive heart disease with the echo indicating left ventricular hypertrophy. Consultation: Oncology hematology doctor joana Pain clinic with the underlying pain despite of chronic pain syndrome Rehabilitation consult Physical therapy Occupational therapy. ER presentation: Multiple complaining of pain, weakness of his left sided, inability to thrive with multiple medical comorbidities and inability to ambula te. Hospital course: Patient admitted to the hospital and adjusted his medication and consultation with the appropriate consult with elevated PSA. And a feral to rehab with the need for halfway rehabilitation. We don't have conclusion from the oncology Don't have conclusion from rehab [facility] bed is available and we come into Thanksgiving and we need to shorten the acute hospitalization and advised that patient to continue as outpatient for contacting pain clinic and the oncology for for further treatment available as he has been taking care of the patient currently by Dr. Winkler. Patient stable general condition for discharge to the [facility]. Discharge exam Vital sign on discharge temperature 97.7 F oral, heart rate 58 bpm fluctuating with atrial fibrillation, his respiratory rate 16/m nonlabored. Blood pressure 150/78 mean blood pressure 102 however we did increase today his hydralazine to 50 mg 3 times a day as a medication reconciled today on discharge . His new Blood pressure 150/78, also his oxygen saturation is fluctuating was 99 now is 93 on room air. Laboratory: Patient need monitor the POC glucose, this morning his blood sugar 239 at 7:30 AM however patient multiple compliant and he drank regular Coke. At the also he had coverage with insulin to scale he had 1 episode of hypoglycemia when he was taken short-acting insulin 20 units before meals meals and has been discontinued. Is lost hemoglobin A1c 8.8. Renal function is stable, he had a chest x-ray was negative. Head was normocephalic and atraumatic he had central boldness. Normal hearing, oropharynx natural teeth Neck was supple no JVD no thyromegaly no lymphadenopathy trachea midline Chest was clear to auscultation and percussion Heart was compensated with atrial fibrillation and controlled ventricular response with stable ejection fraction 50-55% on the echo done on this admission Abdomen positive bowel sounds, protuberant. No tenderness Extremities: Left below knee amputation with the prosthesis could not used at this time Right lower extremities with mild peripheral vascular disease and complicated diabetes with neuropathy and loss of feeling Neurologically stable. Assessment and plan Patient stable general condition to be discharged to halfway for for further rehabilitation. Continuing the control of diabetes mellitus and pain 2 follow-up was oncology hematology for his metastatic prostate with Dr. Winkler oncology hematology for for further treatment Follow-up for the pain clinic with the pain clinic at [facility], as well as Dr. Waddell urology clinic. Diabetic diet Activity as tolerated with rehabilitation had [facility] and the Patient Condition at Discharge: Fair Plan - Discharge Summary Discharge Rx Participant: Yes New Discharge Prescriptions: New Pioglitazone [Actos] 30 mg PO DAILY tab Dapagliflozin Propanediol [Farxiga] 10 mg PO DAILY tab Folic Acid 1 mg PO DAILY tab hydrALAZINE HCL [Apresoline] 50 mg PO TID tab Losartan [Cozaar] 50 mg PO BID tab Continue amLODIPine [Norvasc] 10 mg PO HS Atorvastatin [Lipitor] 20 mg PO HS Escitalopram [Lexapro] 20 mg PO DAILY Gabapentin 600 mg PO QID Insulin Glargine,Hum.rec.anlog [Lantus Solostar Pen] 10 units SQ HS Meloxicam [Mobic] 15 mg PO DAILY PRN PRN Reason: Pain oxyCODONE HCL [oxyCODONE HCL (IR)] 30 mg PO TID PRN PRN Reason: Pain Apixaban [Eliquis] 5 mg PO BID Insulin Aspart [NovoLOG Flexpen] 20 units SQ TID-W/MEALS Discontinued hydrALAZINE HCL [Apresoline] 50 mg PO BID Pantoprazole [Protonix] 40 mg PO DAILY Losartan [Cozaar] 25 mg PO DAILY No Action Potassium Chloride ER [K-Dur 20] 20 meq PO DAILY Discharge Medication List amLODIPine [Norvasc] 10 mg PO HS 11/07/17 [History] Atorvastatin [Lipitor] 20 mg PO HS 01/16/19 [History] Apixaban [Eliquis] 5 mg PO BID 10/04/23 [History] Escitalopram [Lexapro] 20 mg PO DAILY 10/04/23 [History] Gabapentin 600 mg PO QID 10/04/23 [History] Insulin Aspart [NovoLOG Flexpen] 20 units SQ TID-W/MEALS 10/04/23 [History] Insulin Glargine,Hum.rec.anlog [Lantus Solostar Pen] 10 units SQ HS 10/04/23 [History] Meloxicam [Mobic] 15 mg PO DAILY PRN 10/04/23 [History] Potassium Chloride ER [K-Dur 20] 20 meq PO DAILY 10/04/23 [History] oxyCODONE HCL [oxyCODONE HCL (IR)] 30 mg PO TID PRN 10/04/23 [History] Dapagliflozin Propanediol [Farxiga] 10 mg PO DAILY tab 10/09/23 [Rx] Folic Acid 1 mg PO DAILY tab 10/09/23 [Rx] Losartan [Cozaar] 50 mg PO BID tab 10/09/23 [Rx] Pioglitazone [Actos] 30 mg PO DAILY tab 10/09/23 [Rx] hydrALAZINE HCL [Apresoline] 50 mg PO TID tab 10/09/23 [Rx] Follow up Appointment(s)/Referral(s): [facility] [NON-STAFF] - Grayson Hoff MD [Primary Care Provider] - 1-2 days René Winkler MD [STAFF PHYSICIAN] - 1 Week [place] [NON-STAFF] - 1 Week (Admitted to [facility] and rehab) [facility] [NON-STAFF] - 1 Week Activity/Diet/Wound Care/Special Instructions: . Rehab with the below knee amputation and prosthesis Discharge Disposition: TRANSFER TO SNF/ECF
--- NOTE | 2023-10-09 14:43 | P.PN ---
Progress Note - Text Progress Note Date: 10/09/23 Pt's MRI non contrast of the lumbar spine reviewed. His pain is managed with oral pain medications at this time. If pt is interested in interventional pain management, he may follow up at the Pain Clinic on an outpatient basis. Will need medical clearance for Eliquis use prior to procedure.
[2023-10-09 14:45] VITALS: BMI 29.9
[2023-10-09] MEDS ORDERED: hydrALAZINE HCL 50 MG TAB PO SCH ×2 (16:00)
== END 2023-10-09 15:08 | DRG 74 ==
LOC: EC 14:56 → 5NMEDONC 19:51
PROVIDERS: ADMIT Internal Medicine; ATTEND Internal Medicine
DX: E11.42 Type 2 diabetes mellitus with diabetic polyneuropathy (principal); E87.20 Acidosis, unspecified; C77.9 Secondary and unspecified malignant neoplasm of lymph node, unspecified; Z89.512 Acquired absence of left leg below knee; I48.91 Unspecified atrial fibrillation; E11.51 Type 2 diabetes mellitus with diabetic peripheral angiopathy without gangrene; E11.649 Type 2 diabetes mellitus with hypoglycemia without coma; Z79.4 Long term (current) use of insulin; G54.6 Phantom limb syndrome with pain; J44.9 Chronic obstructive pulmonary disease, unspecified; Z89.421 Acquired absence of other right toe(s); E11.65 Type 2 diabetes mellitus with hyperglycemia; R62.7 Adult failure to thrive; I11.9 Hypertensive heart disease without heart failure; F32.A Depression, unspecified; Z60.8 Other problems related to social environment; Z91.A48 Caregiver's other noncompliance with patient's medication regimen for other reason; Z91.A98 Caregiver's noncompliance with patient's other medical treatment and regimen for other reason; G89.4 Chronic pain syndrome; M48.07 Spinal stenosis, lumbosacral region; E78.2 Mixed hyperlipidemia; M17.0 Bilateral primary osteoarthritis of knee; M16.0 Bilateral primary osteoarthritis of hip; F17.210 Nicotine dependence, cigarettes, uncomplicated; F41.9 Anxiety disorder, unspecified; M47.817 Spondylosis without myelopathy or radiculopathy, lumbosacral region; I25.10 Atherosclerotic heart disease of native coronary artery without angina pectoris; R29.6 Repeated falls; R53.1 Weakness; W18.30XA Fall on same level, unspecified, initial encounter; I25.2 Old myocardial infarction; Z86.73 Personal history of transient ischemic attack (TIA), and cerebral infarction without residual deficits; Z85.46 Personal history of malignant neoplasm of prostate; Z79.899 Other long term (current) drug therapy; Z79.01 Long term (current) use of anticoagulants; Z79.1 Long term (current) use of non-steroidal anti-inflammatories (NSAID); Z86.19 Personal history of other infectious and parasitic diseases; Z91.81 History of falling; Z87.39 Personal history of other diseases of the musculoskeletal system and connective tissue
CPT/HCPCS: 36415; 70450; 71046; 71260; 72148; 73521; 74177; 78306; 80048; 80061; 82607; 82746; 83036; 83605; 83735; 83921; 84207; 84443; 85025; 85610; 85730; 93005; 93306; 99285

== ENCOUNTER 2023-10-31 10:55 | Emergency (ER) | payer MEDICARE, OTHER ==
[2023-10-31] MEDS ORDERED: MORPHINE SULFATE 4 MG/ML SYRINGE IV STA (11:09)
[2023-10-31 11:33] LABS: Basophils % (A) 0 %; Eosinophils # (A) 0.1 k/uL (0-0.7); Eosinophils % (A) 1 %; HCT 49.9 % (39.0-53.0); HGB 16.2 gm/dL (13.0-17.5); Lymphocytes # (A) 1.7 k/uL (1.0-4.8); Lymphocytes % (A) 18 %; MCH 29.3 pg (25.0-35.0); MCHC 32.4 g/dL (31.0-37.0); MCV 90.2 fL (80.0-100.0); Mean Platelet Volume 7.9; Monocytes # (A) 0.6 k/uL (0-1.0); Monocytes % (A) 6 %; Neutrophils # (A) 6.7 k/uL (1.3-7.7); Neutrophils % (A) 72 %; Platelet Count 211 k/uL (150-450); RBC 5.53 m/uL (4.30-5.90); RDW 15.5 % (11.5-15.5); WBC 9.4 k/uL (3.8-10.6)
--- NOTE | 2023-10-31 11:46 | ED ---
General Adult HPI - General Chief complaint: Fall Stated complaint: fall Time Seen by Provider: 10/31/23 11:02 Source: patient, RN notes reviewed, old records reviewed Mode of arrival: EMS Limitations: no limitations - History of Present Illness Initial comments: Patient is a 67-year-old male who presents emergency Department complaining of a fall from standing on blood thinners. Patient presents from nursing facility. Patient takes Eliquis. States he tripped and fell, landing on his left side hitting his head on the ground. Did not lose consciousness. Staff at nursing facility wanted him to be evaluated. 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 Denies any back pain, chest pain, abdominal pain. Has chronic left leg pain and phantom pains which is complaining of. Denies any other acute complaints at this time. Presents for further evaluation. - Related Data Home Medications Medication Instructions Recorded Confirmed amLODIPine [Norvasc] 10 mg PO HS 11/07/17 10/31/23 Atorvastatin [Lipitor] 20 mg PO HS 01/16/19 10/31/23 Apixaban [Eliquis] 5 mg PO BID@0800,1700 10/04/23 10/31/23 Escitalopram [Lexapro] 20 mg PO DAILY@0800 10/04/23 10/31/23 Gabapentin 600 mg PO Q6H 10/04/23 10/31/23 Insulin Aspart [NovoLOG Flexpen] 10 units SQ TID@0700,1130,1700 10/04/23 10/31/23 Meloxicam [Mobic] 15 mg PO DAILY PRN 10/04/23 10/31/23 Potassium Chloride ER [K-Dur 20] 20 meq PO DAILY@0800 10/04/23 10/31/23 oxyCODONE HCL [oxyCODONE HCL (IR)] 30 mg PO Q8H PRN 10/04/23 10/31/23 Dapagliflozin Propanediol [Farxiga] 10 mg PO DAILY@0800 10/31/23 10/31/23 Folic Acid 1 mg PO DAILY@0800 10/31/23 10/31/23 Insulin Glargine [Lantus Vial] 10 unit SQ HS 10/31/23 10/31/23 Losartan [Cozaar] 50 mg PO BID@0800,1700 10/31/23 10/31/23 Magnesium Hydroxide [Milk of 7,200 mg PO DIRECTED PRN 10/31/23 10/31/23 Magnesia Concentrate] Menthol [Biofreeze] 1 applic TOPICAL Q6H PRN 10/31/23 10/31/23 Mylanta Double Strength 10 ml PO Q4H PRN 10/31/23 10/31/23 Na Phos,M-B/Na Phos,Di-Ba [Fleet 133 ml RECTAL DAILY PRN 10/31/23 10/31/23 Adult] Pioglitazone [Actos] 30 mg PO DAILY@0800 10/31/23 10/31/23 bisacodyL [Dulcolax] 10 mg PO DAILY PRN 10/31/23 10/31/23 hydrALAZINE HCL [Apresoline] 50 mg PO TID@0800,1400,2100 10/31/23 10/31/23 Allergies Allergy/AdvReac Type Severity Reaction Status Date / Time No Known Allergies Allergy Verified 10/31/23 12:51 Review of Systems ROS Statement: Those systems with pertinent positive or pertinent negative responses have been documented in the HPI. Review of Systems: CONST: Denies fever EYES: Denies blurry vision ENT: Denies nasal congestion C/V: Denies Chest pain RESP: Denies shortness of breath GI: Denies abdominal pain : Denies dysuria SKIN: Denies rash. MSK: Denies joint pain. NEURO: Denies headache ROS Other: All systems not noted in ROS Statement are negative. Past Medical History Past Medical History: Atrial Fibrillation, Cancer, CVA/TIA, Diabetes Mellitus, GERD/Reflux, Hypertension, Liver Disease, Myocardial Infarction ([place]), Osteoarthritis (OA), Prostate Disorder Additional Past Medical History / Comment(s): stroke 2 1/2 years-no residual effects, neuropathy both feet, hx. prostate cancer 2003, hx. hepatitis B 2002? Last Myocardial Infarction Date:: 2008 History of Any Multi-Drug Resistant Organisms: CRE Date of last positivie culture/infection: 05/16/19 MDRO Source:: TISSUE FOOT Past Surgical History: Heart Catheterization, Orthopedic Surgery, Prostate Surgery Additional Past Surgical History / Comment(s): prostatectomy, surg. on 1st-2nd toe left foot, surg. for kidney stones, right hand surg. left foot 2nd toe amputation 10/2017 Past Anesthesia/Blood Transfusion Reactions: No Reported Reaction Past Psychological History: No Psychological Hx Reported, Depression Smoking Status: Current every day smoker Past Alcohol Use History: Occasional Past Drug Use History: None Reported - Past Family History Mother Family Medical History: Coronary Artery Disease (CAD) Father Family Medical History: CVA/TIA General Exam - General Exam Comments Initial Comments: General: Appears in no acute distress. HEAD: Normal with no signs of head trauma. Negative Willis sign. Negative raccoon eyes. EYES: PERRLA, EOMI, conjunctiva normal, no discharge. Pupils are 3 mm and equal bilaterally. ENT: Hearing grossly intact, normal oropharynx. RESPIRATORY: Clear breath sounds bilaterally. No wheezes, rales, or rhonchi. C/V: Regular rate and rhythm. S1 and S2 auscultated, no edema, peripheral pulses 2+ and intact throughout ABD: Abd is soft, nontender, nondistended EXT: Left below-knee amputation. No midline cervical, thoracic, lumbar spine tenderness to palpation. Pelvis is stable. SKIN: No rashes or lesions observed on exposed skin. NEURO: Alert and oriented x 4. Cranial nerves II-XII intact. No focal sensory or strength deficits. GCS of 15. Limitations: no limitations Course Vital Signs 10/31/23 10/31/23 10:59 13:18 Temperature 98.2 F 97.2 F L Pulse Rate 71 74 Respiratory 16 17 Rate Blood Pressure 142/97 139/87 O2 Sat by Pulse 95 98 Oximetry Medical Decision Making - Medical Decision Making Was pt. sent in by a medical professional or institution (, PA, WEB METHODS DEVELOPER, urgent care, hospital, or retirement...) When possible be specific @ -Patient transferred from nursing [facility] for evaluation after fall on blood thinners Did you speak to anyone other than the patient for history (EMS, parent, family, police, friend...)? What history was obtained from this source @ -No Did you review nursing and triage notes (agree or disagree)? Why? @ -I reviewed and agree with nursing and triage notes Were old charts reviewed (outside hosp., previous admission, EMS record, old EKG, old radiological studies, urgent care reports/EKG's, retirement records)? Report findings @ -Old charts reviewed Differential Diagnosis (chest pain, altered mental status, abdominal pain women, abdominal pain men, vaginal bleeding, weakness, fever, dyspnea, syncope, headache, dizziness, GI bleed, back pain, seizure, CVA, palpatations, mental health, musculoskeletal)? @ -Fall, intracranial injury, muscle skeletal injury, intracranial bleed. This list is not all inclusive. EKG interpreted by me (3pts min.). @ -As above X-rays interpreted by me (1pt min.). @ -Chest and pelvis x-rays negative for any obvious acute injuries. CT interpreted by me (1pt min.). @ -CT brain and C-spine negative for any obvious acute injury. U/S interpreted by me (1pt. min.). @ -None done What testing was considered but not performed or refused? (CT, X-rays, U/S, labs)? Why? @ -None What meds were considered but not given or refused? Why? @ -None Did you discuss the management of the patient with other professionals (professionals i.e. , PA, WEB METHODS DEVELOPER, lab, RT, psych nurse, social studies teacher, underground foreman, teacher, correction officer supervisor, protective services case worker)? Give summary @ -No Was smoking cessation discussed for >3mins.? @ -No Was critical care preformed (if so, how long)? @ -No Were there social determinants of health that impacted care today? How? (Homelessness, low income, unemployed, alcoholism, drug addiction, t ransportation, low edu. Level, literacy, decrease access to med. care, halfway, rehab)? @ -No Was there de-escalation of care discussed even if they declined (Discuss DNR or withdrawal of care, Hospice)? DNR status @ -No What co-morbidities impacted this encounter? (DM, HTN, Smoking, COPD, CAD, Cancer, CVA, ARF, Chemo, Hep., AIDS, mental health diagnosis, sleep apnea, morbid obesity)? @ -None Was patient admitted / discharged? Hospital course, mention meds given and route, prescriptions, significant lab abnormalities, going to OR and other pertinent info. @ -Based on the patient's presentation and physical exam, presents as fall on blood thinners. Patient fell from standing. Does not meet criteria for trauma activation however ATLS protocol was followed. Patient is refusing the cervical collar. We will obtain CT brain and C-spine as well as chest and pelvis x-rays and basic labs. Patient agreement this plan. Vital signs within acceptable limits. He'll be given a small dose of morphine for analgesia. EKG showed no signs of ischemia.Imaging negative for any obvious acute injuries. Patient's labs are also within acceptable limits. I discussed with the patient the results of his workup. He expressed understanding. He'll be given a dose of his normal gabapentin at this time discharged back to his rehab facility. He was in agreement this plan. I instructed the patient to follow up with their PCP in the next 1-3 days. I explained that the patient should return to the emergency department if they experience any worsening symptoms. Strict return precautions were discussed with the patient. The patient expressed understanding of these instructions. I answered all questions that the patient had. The patient was discharged home in good condition with their prescriptions and follow up information. Undiagnosed new problem with uncertain prognosis? @ -No Drug Therapy requiring intensive monitoring for toxicity (Heparin, Nitro, Insulin, Cardizem)? @ -No Were any procedures done? @ -No Diagnosis/symptom? @ -Mechanical Fall on blood thinners Acute, or Chronic, or Acute on Chronic? @ -Acute Uncomplicated (without systemic symptoms) or Complicated (systemic symptoms)? @ -Uncomplicated Side effects of treatment? @ -none Exacerbation, Progression, or Severe Exacerbation] @ -no Poses a threat to life or bodily function? @ -no - Lab Data Result diagrams: 10/31/23 11:14 10/31/23 11:14 Lab Results 10/31/23 10/31/23 10/31/23 Range/Units 11:14 11:14 11:14 WBC 9.4 (3.8-10.6) k/uL RBC 5.53 (4.30-5.90) m/uL Hgb 16.2 (13.0-17.5) gm/dL Hct 49.9 (39.0-53.0) % MCV 90.2 (80.0-100.0) fL MCH 29.3 (25.0-35.0) pg MCHC 32.4 (31.0-37.0) g/dL RDW 15.5 (11.5-15.5) % Plt Count 211 (150-450) k/uL MPV 7.9 Neutrophils % 72 % Lymphocytes % 18 % Monocytes % 6 % Eosinophils % 1 % Basophils % 0 % Neutrophils # 6.7 (1.3-7.7) k/uL Lymphocytes # 1.7 (1.0-4.8) k/uL Monocytes # 0.6 (0-1.0) k/uL Eosinophils # 0.1 (0-0.7) k/uL Basophils # 0.0 (0-0.2) k/uL PT 10.4 (10.0-12.5) sec INR 0.9 (<1.2) APTT 26.4 (22.0-30.0) sec Sodium 139 (137-145) mmol/L Potassium 4.3 (3.5-5.1) mmol/L Chloride 105 (98-107) mmol/L Carbon Dioxide 19 L (22-30) mmol/L Anion Gap 15 mmol/L BUN 21 H (9-20) mg/dL Creatinine 0.78 (0.66-1.25) mg/dL Est GFR (CKD-EPI)AfAm >90 (>60 ml/min/1.73 sqM) Est GFR (CKD-EPI)NonAf >90 (>60 ml/min/1.73 sqM) Glucose 221 H (74-99) mg/dL Calcium 9.3 (8.4-10.2) mg/dL Total Bilirubin 0.5 (0.2-1.3) mg/dL AST 18 (17-59) U/L ALT 17 (4-49) U/L Alkaline Phosphatase 69 (38-126) U/L Total Protein 6.5 (6.3-8.2) g/dL Albumin 4.1 (3.5-5.0) g/dL - EKG Data -: EKG Interpreted by Me EKG Comments: 12-lead Electrocardiogram Interpretation Note EKG was reviewed and interpreted by myself. 12-lead ECG performed at 1103 is interpreted by me as revealing atrial fibrillation at a rate of 66 beats per minute. [place] is normal. QRS duration is 97 ms, QTc is 413 ms.. There were no ST or T wave abnormalities to suggest myocardial ischemia or injury. R wave progression across the precordium was satisfactory. By my interpretation this EK G is non-diagnostic for acute ischemia. Disposition Clinical Impression: Fall Disposition: HOME SELF-CARE Condition: Good Instructions (If sedation given, give patient instructions): Fall Prevention for Older Adults (ED) Is patient prescribed a controlled substance at d/c from ED?: No Referrals: Grayson Hoff MD [Primary Care Provider] - 1-2 days Time of Disposition: 12:38
[2023-10-31 11:50] LABS: ALT 17 U/L (4-49); AST 18 U/L (17-59); African American GFR (CKD) >90 (>60 ml/min/1.73 sqM); Albumin 4.1 g/dL (3.5-5.0); Alkaline Phosphatase 69 U/L (38-126); Anion Gap 15 mmol/L; Blood Urea Nitrogen 21 mg/dL (9-20); Calcium 9.3 mg/dL (8.4-10.2); Carbon Dioxide 19 mmol/L (22-30); Chloride 105 mmol/L (98-107); Glucose 221 mg/dL (74-99); Non-African American GFR(CKD) >90 (>60 ml/min/1.73 sqM); Potassium 4.3 mmol/L (3.5-5.1); Sodium 139 mmol/L (137-145); Total Bilirubin 0.5 mg/dL (0.2-1.3); Total Protein 6.5 g/dL (6.3-8.2)
--- NOTE | 2023-10-31 12:08 | XR ---
EXAMINATION TYPE: XR pelvis AP view DATE OF EXAM: 10/31/2023 CLINICAL HISTORY: pain TECHNIQUE: Single view the pelvis is submitted. FINDINGS: No evidence for fracture, dislocation or bony lesion. Joint spaces are well-preserved. S I joints appear symmetric. IMPRESSION: 1. No acute fracture or dislocation seen. ICD 10 NO FRACTURE, INITIAL EVALUATION
--- NOTE | 2023-10-31 12:09 | XR ---
EXAMINATION TYPE: XR chest 1V portable DATE OF EXAM: 10/31/2023 HISTORY: Shortness of breath. COMPARISON: 10/05/2023 TECHNIQUE: Single view of the chest is submitted. FINDINGS: Demonstrated are scattered senescent parenchymal change. There is no evidence for focal infiltrate. The heart is stable. Hilar and mediastinal structures are within normal limits. Degenerative changes are seen of the dorsal spine. IMPRESSION: 1. Chronic changes without evidence for acute pulmonary disease.
[2023-10-31 12:10] LABS: INR 0.9 (<1.2); Partial Thromboplastin Time 26.4 sec (22.0-30.0); Prothrombin Time 10.4 sec (10.0-12.5)
--- NOTE | 2023-10-31 12:38 | CT ---
EXAMINATION TYPE: CT brain cspine wo con CT DLP: 1499.5 mGycm, Automated exposure control for dose reduction was used. DATE OF EXAM: 10/31/2023 11:51 AM COMPARISON: 10/04/2023 CLINICAL INDICATION:Male, 67 years old with history of fall; TECHNIQUE: Brain: Multiple axial CT images of the brain were obtained without IV contrast. Cspine: Axial CT images from the skull base to the inferior aspect of T2 we obtained without intraven ous contrast. Coronal and sagittal reformatted images were also reviewed. FINDINGS: Brain: Extra-axial spaces: No abnormal extra-axial fluid collections. Ventricular system: Within normal limits Cerebral parenchyma: Prior injury to the right frontal/parietal region is unchanged. No acute intrapa renchymal hemorrhage or mass effect. The cancino-white junction is well differentiated. Cerebellum: Unremarkable. Mass effect: No evidence of midline shift. Intracranial vasculature: Atherosclerotic calcifications of the intracranial vessels. Soft tissues: Normal. Calvarium/osseous structures: No depressed skull fracture. Paranasal sinuses and mastoid air cells: Clear. Visualized orbits: Bilaterally aphakia. Cervical spine: Fracture: None. Osseous structures: Unremarkable Vertebral alignment: Within normal limits. Spinal canal/Neural Foramina: No evidence of significant spinal canal narrowing. No evidence for sign ificant neural foraminal stenosis. Neck soft tissues: Prevertebral soft tissues are within normal limits. Other: The airway is patent. The lung apices are clear. IMPRESSION: 1. No acute intracranial process. 2. Prior injury to the right frontal parietal region is unchanged. 3. No evidence of cervical spine fracture. 4. Mild multilevel degenerative disc disease.
[2023-10-31] MEDS ORDERED: GABAPENTIN 300 MG CAP PO STA (13:02)
[2023-10-31 13:27] VITALS: BP 139/87; PULSE 74; RESP 17; TEMP 97.2
== END 2023-10-31 16:10 | disposition home or self-care (01) ==
LOC: EC 10:55
DX: G89.29 Other chronic pain (principal); M79.605 Pain in left leg; E11.9 Type 2 diabetes mellitus without complications; I10 Essential (primary) hypertension; I25.2 Old myocardial infarction; I48.91 Unspecified atrial fibrillation; K21.9 Gastro-esophageal reflux disease without esophagitis; M19.90 Unspecified osteoarthritis, unspecified site; F17.200 Nicotine dependence, unspecified, uncomplicated; Z79.01 Long term (current) use of anticoagulants; Z79.4 Long term (current) use of insulin; Z79.84 Long term (current) use of oral hypoglycemic drugs; Z79.899 Other long term (current) drug therapy; W01.198A Fall on same level from slipping, tripping and stumbling with subsequent striking against other object, initial encounter
CPT/HCPCS: 36415; 80053; 85025; 85610; 85730; 72170; 71045; 72125; 70450; 99285; 96374; J2270